=== PATIENT | female | born 1985 | race Caucasian/White ===

== ENCOUNTER → 2016-03-19 | Outpatient (CLI) | payer BC ==
[~2016-03-19] MED LIST: AMPH10TA2 PO; AMPH20TA2 PO; CLON0.5T3 PO; CMP/10 PO; CYCL10TA6 PO; DICL50TA3 PO; EFF/375 PO; EFF75 PO; EFFSR150 PO; ELET40TA PO; ETONMIS VAGRING; FLUO20CA37 PO; FLUO27.5 PO; FLX10 PO; HYDR-5688 PO; KLN5X PO; LAMO100T PO; LAMO1TAB21 PO; LAMO200T PO; LAMO200T38 PO; LINA1CAP PO; LINA72CA PO; LISI-729 PO; LRS10 PO; LSN5 PO; MELO15TA4 PO; METH500T37 PO; NARA2.5T2 PO; NF656 TD; NUVVR VAGRING; OXYC-164 PO; OXYC-57 PO; PROP120C PO; PRZ/40 PO; RXC5 PO; TOPI1CAP24 PO; TOPI25TA99 PO; TOPI50TA24 PO
--- NOTE | 2016-03-19 12:40 | MAMMOGRAPHY REPORT ---
UNILATERAL LEFT DIGITAL DIAGNOSTIC MAMMOGRAM TOMOSYNTHESIS WITH CAD AND TARGETED LEFT ULTRASOUND: 12/2016 CLINICAL HISTORY: 31 year-old woman who has been experiencing discomfort and other issues with her l eft axilla radiating down her arm into her neck and into her left breast since January 2016. She r eports a "cording" feeling with pain under the left armpit that travels into the left breast. Patie nt reported a previous neck CT and extremity ultrasound in the emergency department was unyielding. Patient reports a family history of breast cancer = grandmother and great grandmother. TECHNIQUE: Left breast tomosynthesis in addition to standard 2D mammography was performed. Current study was also evaluated with a Computer Aided Detection (CAD) system. COMPARISON: No prior exams were available for comparison. BREAST COMPOSITION: There are scattered areas of fibroglandular density in the left breast. FINDINGS: A triangular skin palpable marker overlies the upper outer posterior left breast, denoting the palpable concern pointed out by the patient. No suspicious mass, architectural distortion or c luster of suspicious microcalcifications is seen in the left breast. Targeted ultrasound was performed in the areas of concern pointed out by the patient (in the left up per extremity superior to the axilla, within the left axilla, inferior to the axilla in the left upp er outer quadrant and along the left mid axillary line). A few morphologically normal lymph nodes a re identified within the left axilla. Blood flow is documented within the left axillary artery and vein and a more superficial blood vessel also demonstrates blood flow. There is no evidence of susp icious adenopathy or suspicious mass. No current sonographic evidence of superficial thrombophlebit is (Mondor's disease). IMPRESSION: ACR BI-RADS CATEGORY 1: NEGATIVE, TARGETED ULTRASOUND ACR BI-RADS CATEGORY 1: NEGATIVE There is no mammographic or targeted sonographic evidence of malignancy. No suspicious lymphadenopa thy or other suspicious abnormality is identified within the left upper outer quadrant and left axil la, in the areas of concern pointed out by the patient. The patient's description of her pain and a bnormal sensation could be that of Mondor's disease/superficial thrombophlebitis, that is intermitte nt. Clinical follow-up is recommended. Would also recommend annual screening mammography beginning at age 40 given the family history of breast cancer. These results and recommendations were discus sed with the patient at the time of the exam. Approximately 10% of breast cancers are not detected with mammography. A negative mammographic repor t should not delay biopsy if a clinically suggestive mass is present. Jazmine Noel M.D. ay/:03/19/2016 10:46:21 [employer]: Yanna CRUMP(R)(Pancho), [facility] letter sent: Normal 1/2 BI-RADS Code: ACR BI-RADS Category 1: Negative Ultrasound BI-RADS: ACR BI-RADS Category 1: Negative
== END | disposition home or self-care (01) ==
LOC: C.MAMM 09:20
PROVIDERS: ATTEND Internal Medicine
DX: N64.4 Mastodynia (principal)

== ENCOUNTER 2016-03-30 22:43 | Emergency (ER) | payer BC ==
[~2016-03-30] VITALS: Ht 162.6 cm; Wt 71.6 kg
[~2016-03-30 22:43] MED LIST changes: -AMPH10TA2 PO; -CMP/10 PO; -CYCL10TA6 PO; -EFF/375 PO; -EFF75 PO; -EFFSR150 PO; -ETONMIS VAGRING; -FLUO27.5 PO; -FLX10 PO; -HYDR-5688 PO; -KLN5X PO; -LAMO1TAB21 PO; -LAMO200T38 PO; -LINA1CAP PO; -LINA72CA PO; -LRS10 PO; -LSN5 PO; -MELO15TA4 PO; -NARA2.5T2 PO; -NF656 TD; -NUVVR VAGRING; -OXYC-164 PO; -OXYC-57 PO; -PROP120C PO; -RXC5 PO; -TOPI1CAP24 PO; -TOPI25TA99 PO
[2016-03-30 22:45] VITALS: TEMP 36.2; Ht 162.6 cm; Wt 71.6 kg
[2016-03-30] MEDS ORDERED: FENTANYL CITRATE INJ 50 MCG/1 ML 2 ML VIAL IV STA (23:01)
[2016-03-30] MEDS ORDERED: SODIUM CHLORIDE 0.9% 1000ML 1,000 ML IV STA ×2 (23:01)
[2016-03-30] MEDS ORDERED: METOCLOPRAMIDE HCL INJ 5 MG/ML 2 ML VIAL IM STA (23:01)
[2016-03-30] MEDS ORDERED: DiphenhydrAMINE HCL 50 MG/ML VIAL IV STA (23:01)
[2016-03-30] MEDS ORDERED: METOCLOPRAMIDE HCL INJ 5 MG/ML 2 ML VIAL IV STA (23:55)
[2016-03-30 23:58] VITALS: O2SAT 100
[2016-03-31] LABS: BASO % 0.3 %; BASO ABS # 0.03 K/uL (0-0.2); COMPLETE YES; EOS % 2.3 %; HEMATOCRIT 39.1 % (37-47); IG% 0.3 %; LYMPH % 30.4 %; LYMPH ABS # 2.93 K/uL (1.2-3.4); MEAN CELL VOLUME 91.4 fL (80-100); MEAN CORPUSCULAR HEMOGLOBIN 31.3 pg (25-34); MEAN CORPUSCULAR HGB CONC 34.3 g/dl (32-36); MEAN PLATELET VOLUME 9.1 fL (7.4-10.4); MONO % 10.2 %; NEUT % 56.5 %; PLATELET COUNT 408 K/uL (130-400); RED BLOOD COUNT 4.28 M/uL (4.2-5.4); WHITE BLOOD COUNT 9.63 K/uL (4.8-10.8)
[2016-03-31 00:21] LABS: ALT/SGPT 20 U/L (12-78); AST/SGOT 12 U/L (15-37); BLOOD UREA NITROGEN 15 mg/dl (7-18); BUN/CREATININE RATIO 18.2 (10-20); CALCIUM 9.2 mg/dl (8.5-10.1); CARBON DIOXIDE 21 mmol/L (21-32); CHLORIDE 109 mmol/L (98-107); CREATININE 0.85 mg/dl (0.60-1.20); GLUCOSE 77 mg/dl (70-99); SODIUM 141 mmol/L (136-145)
[2016-03-31 00:24] LABS: ALKALINE PHOSPHATASE 96 U/L (45-117)
[2016-03-31 00:50] LABS: PREG INTERNAL NEGATIVE QC NEG CLEAR BACKGROUND; PREG INTERNAL POSITIVE QC POS CONTROL LINE
[2016-03-31] MEDS ORDERED: NARA2.5T2 PO (01:27)
[2016-03-31] MEDS ORDERED: TOPI25TA99 PO (01:30)
[2016-03-31] MEDS ORDERED: AMPH10TA2 PO (01:31)
[2016-03-31] MEDS ORDERED: KETOROLAC TROMETHAMINE 30 MG/ML VIAL IV STA (01:47)
[2016-03-31] MEDS ORDERED: ONDANSETRON HOME PACK 4MG OD TAB PO ONE (02:00)
[2016-03-31] MEDS ORDERED: OXYCODONE IR HOME PACK PO ONE (02:00)
--- NOTE | 2016-03-31 02:12 | EMERGENCY ROOM VISIT NOTE ---
History First contact with patient: 22:56 Chief Complaint: ABDOMINAL PAIN Stated Complaint: LL PAIN Nursing Triage Summary: Pt reports chronic left side abdominal pain for endometriosis. Tonight the pain became worse. History of Present Illness The patient is a 31 year old female who presents to the Emergency Room with complaints of chronic pelvic pain for many years that got slightly worse tonight. Patient states she has pelvic congestion syndrome. She sees Dr. Quiros from [facility]. She described the pain as aching, ranging in severity 9 out of 10. Nothing makes it better or worse. Patient is in a monogamous relationship denies risk for STIs. Patient denies chest pain, dyspnea, fever, chills, vomiting, diarrhea, back pain, urinary symptoms, vaginal itching or discharge. She also has endometriosis. elective 2 Review of Systems See HPI for pertinent positives & negatives. A total of 10 systems reviewed and were otherwise negative. Past Medical/Surgical History Medical Problems: (1) Bursitis of hip (2) Calculus Of Kidney (3) Depression (4) Hx of anxiety disorder (5) Migraines (6) Ovarian Cyst Nec/Nos (7) Personal History, Urinary (Tract) Infection (8) Pilonidal Cyst W Abscess Pelvic congestion syndrome, endometriosis Family History Diabetes mellitus FH: brain aneurysm MOTHER, Onset:12 Hypertension Seizures MOTHER Stroke Social History Smoking Status: Current Some Day Smoker Marital Status: Housing Status: lives with family Occupation Status: employed Current/Historical Medications Scheduled Amphetamine-Dextroamphetamine 10MG (Adderall 10MG), 10 MG PO BID Clonazepam (Klonopin), 0.5 MG PO QPM Clonazepam (Klonopin), 0.25 MG PO QAM Fluoxetine Hcl (Prozac), 20 MG PO QAM Fluoxetine Hcl (Prozac), 40 MG PO QAM Lamotrigine (Lamictal), 100 MG PO QAM Lamotrigine (Lamictal), 200 MG PO HS Naratriptan Hcl (Amerge), 2.5 MG PO PRN/UD Propranolol Hcl (Propranolol Hcl Er), 120 MG PO QAM Topiramate (Topamax ), 75 MG PO BID Scheduled PRN Diclofenac (Voltaren), 50 MG PO Q8 PRN for Headache Methocarbamol (Robaxin), 500 MG PO BID PRN for Neck Pain or Headache Allergies Coded Allergies: Morphine (Verified Allergy, Intermediate, MAKES HER ANXIOUS, 03/30/16) Tramadol (Verified Allergy, Intermediate, GIVES HER THE SHAKES, 03/30/16) Leuprolide (Verified Allergy, Unknown, Mental complications, 05/31/15) Trazodone (Unverified Allergy, Unknown, ., 03/30/16) Estradiol (Verified Adverse Reaction, Unknown, "crazy", 03/30/16) ADMITTED TO [facility] D/T SIDE EFFECTS Physical Exam Vital Signs Date Time Temp Pulse Resp B/P Pulse Ox O2 Delivery O2 Flow Rate FiO2 03/31/16 01:22 64 16 107/68 100 Room Air 03/31/16 00:15 87 03/30/16 23:58 100 Room Air 03/30/16 23:57 74 16 101/58 100 Room Air 03/30/16 22:45 36.2 81 19 108/61 100 Room Air Physical Exam VITALS: Vitals are noted on the nurse's note and reviewed by myself. Vital signs stable. GENERAL: White female avoiding eye contact, in no acute distress, nondiaphoretic , well-developed well-nourished. SKIN: The skin was without rashes, erythema, edema, or bruising. There is no tenting of the skin. Capillary reflex less than 2 seconds. HEAD: Normocephalic atraumatic. EARS: External auditory canals clear, tympanic membranes pearly alfaro without erythema or effusion bilaterally. EYES: Pupils equal round and reactive to light and accommodation. Conjunctivae without injection, sclerae without icterus. Extraocular movements intact. NOSE: Patent, turbinates without inflammation or discharge. MOUTH: Mucous membranes moist. Pharynx without erythema or exudate. Uvula midline. Airway patent. Tongue does not deviate. NECK: Supple without nuchal rigidity. No lymphadenopathy. No thyromegaly. Cervical spine is nontender. No JVD. HEART: Regular rate and rhythm without murmurs gallops or rubs. LUNGS: Clear to auscultation bilaterally without wheezes, rales or rhonchi. No dullness to percussion. No retractions or accessory muscle use. ABDOMEN: Positive bowel sounds x 4. Normal tympanic percussion. Soft, tender to palpation left lower quadrant pubic area, without masses or organomegaly. Alvarez sign negative. No guarding or rebound tenderness. No CVA tenderness MUSCULOSKELETAL: No muscle atrophy, erythema, or edema noted. NEURO: Patient was alert and oriented to person place and time. Normal sensation to light and sharp touch. No focal neurological deficits. Medical Decision & Procedures Laboratory Results 03/30/16 23:40 Red Blood Count 4.28, Mean Corpuscular Volume 91.4, Mean Corpuscular Hemoglobin 31.3, Mean Corpuscular Hemoglobin Concent 34.3, Mean Platelet Volume 9.1, Neutrophils (%) (Auto) 56.5, Lymphocytes (%) (Auto) 30.4, Monocytes (%) (Auto) 10.2, Eosinophils (%) (Auto) 2.3, Basophils (%) (Auto) 0.3, Neutrophils # (Auto ) 5.44, Lymphocytes # (Auto) 2.93, Monocytes # (Auto) 0.98, Eosinophils # (Auto ) 0.22, Basophils # (Auto) 0.03 03/30/16 23:40 Test 03/30/16 23:40 White Blood Count 9.63 K/uL (4.8-10.8) Red Blood Count 4.28 M/uL (4.2-5.4) Hemoglobin 13.4 g/dL (12.0-16.0) Hematocrit 39.1 % (37-47) Mean Corpuscular Volume 91.4 fL (80-100) Mean Corpuscular Hemoglobin 31.3 pg (25-34) Mean Corpuscular Hemoglobin Concent 34.3 g/dl (32-36) Platelet Count 408 K/uL (130-400) Mean Platelet Volume 9.1 fL (7.4-10.4) Neutrophils (%) (Auto) 56.5 % Lymphocytes (%) (Auto) 30.4 % Monocytes (%) (Auto) 10.2 % Eosinophils (%) (Auto) 2.3 % Basophils (%) (Auto) 0.3 % Neutrophils # (Auto) 5.44 K/uL (1.4-6.5) Lymphocytes # (Auto) 2.93 K/uL (1.2-3.4) Monocytes # (Auto) 0.98 K/uL (0.11-0.59) Eosinophils # (Auto) 0.22 K/uL (0-0.5) Basophils # (Auto) 0.03 K/uL (0-0.2) RDW Standard Deviation 43.6 fL (36.4-46.3) RDW Coefficient of Variation 13.2 % (11.5-14.5) Immature Granulocyte % (Auto) 0.3 % Immature Granulocyte # (Auto) 0.03 K/uL (0.00-0.02) Anion Gap 11.0 mmol/L (3-11) Est Creatinine Clear Calc Drug Dose 93.1 ml/min Estimated GFR () 105.8 Estimated GFR (Non- 91.3 BUN/Creatinine Ratio 18.2 (10-20) Calcium Level 9.2 mg/dl (8.5-10.1) Total Bilirubin 0.4 mg/dl (0.2-1) Direct Bilirubin < 0.1 mg/dl (0-0.2) Aspartate Amino Transf (AST/SGOT) 12 U/L (15-37) Alanine Aminotransferase (ALT/SGPT) 20 U/L (12-78) Alkaline Phosphatase 96 U/L (45-117) Total Protein 7.5 gm/dl (6.4-8.2) Albumin 4.2 gm/dl (3.4-5.0) Lipase 127 U/L (73-393) Human Chorionic Gonadotropin, Qual NEG (NEG) Medications Administered Medications (Trade) Dose Ordered Sig/Anthony Route Start Time Stop Time Status Last Admin Dose Admin Fentanyl Citrate 50 mcg 50 mcg NOW STAT IV 03/30/16 23:01 03/30/16 23:04 DC 03/30/16 23:49 50 MCG Sodium Chloride 1,000 ml @ 999 mls/hr Q1H1M STAT IV 03/30/16 23:01 03/31/16 00:01 DC 03/30/16 23:48 999 MLS/HR Sodium Chloride (Nss 1000ml) 1,000 ml @ 200 mls/hr Q5H STAT IV 03/30/16 23:01 03/31/16 04:00 03/31/16 01:24 200 MLS/HR Diphenhydramine HCl (Benadryl Inj) 12.5 mg NOW STAT IV 03/30/16 23:01 03/30/16 23:04 DC 03/30/16 23:49 12.5 MG Metoclopramide HCl (Reglan Inj) 10 mg NOW STAT IV 03/30/16 23:55 03/30/16 23:57 DC 03/30/16 23:59 10 MG ED Course Prior records/ancillary studies reviewed. Triage Nursing notes reviewed. Additional history obtained from family. The patient's history was concerning for abdominal pain. Differential diagnosis: Etiologies such as pelvic congestion syndrome, endometriosis, cyst, torsion, appendicitis, diverticulitis, PUD, biliary pathology, UTI, pancreatitis, obstruction, mesenteric ischemia, aortic pathology, infections, inflammatory bowel disease, renal colic, as well as others were entertained. Physical examination findings: As above. ER treatment provided: Fentanyl, Reglan, Benadryl, IV fluids On reassessment the patient felt better. Diagnostics interpreted by me: The labs revealed negative hCG. No worrisome leukocytosis or electrolyte abnormality negative urine Imaging studies: Ultrasound was read by stat radiology concerning for ovarian cyst. No torsion Exam and history seem consistent with acute on chronic pelvic pain. Patient has a long-standing history of this. Unremarkable workup as above. She is advised follow-up with her [facility] in a few days or here in the ER sooner for severe pain, vomiting, worsening signs or symptoms or as needed. By the evaluation outlined above emergent etiologies such as appendicitis, diverticulitis, PUD, biliary pathology, UTI, pancreatitis, obstruction, mesenteric ischemia, aortic pathology, infections, inflammatory bowel disease, renal colic, as well as others were deemed relatively unlikely. The pt informed about the findings as listed above. All questions were answered and pleased with the treatment. Return instructions were outlined and the patient was discharged in stable condition. Outpatient prescription management: zofran Referral: The patient was referred back to their [facility] for follow-up in 2 to 3 days for a recheck of the current condition. Case reviewed with my attending Medical Decision As above [place] Drug Monitoring Program Search Results: patient reviewed within database, see additional documentation (multiple drug prescriptions for narcotics and antianxiety medications) Impression Primary Impression: Pelvic pain Additional Impression: acute on chronic pain Departure Information Dispostion Home / Self-Care Condition GOOD Referrals Gagandeep Carroll M.D. (PCP) Patient Instructions [facility] Additional Instructions Ibuprofen(Motrin, Advil) may be used for fever or pain. Use 600mg every six hours as needed. Take with food. Avoid using more than 2400mg in a 24 hour period. Do not use 2400mg per day for more than three consecutive days without physician direction. Prolonged inappropriate use can lead to stomach upset or ulcers. (AND/OR) Acetaminophen(Tylenol) may be used for fever or pain. Use 1000mg every six hours as needed. Avoid using more than 3000mg in a 24 hour period. Rest and drink plenty of fluids as tolerated. Continue current medications. Avoid strenuous activities and anything that worsens your pain. Resume normal activities once your symptoms resolve. Return to the ER immediately for worsening or persistent abdominal pain, vomiting, fevers, chest pains, difficulty breathing, worsening of your condition , or as needed. Follow up with your primary physician/[facility] in 2-3 days for a recheck of your current condition. Problem Qualifiers
[2016-03-31 02:17] LABS: URINE APPEARANCE CLOUDY (CLEAR); URINE BILIRUBIN NEG (NEG); URINE COLOR DK YELLOW; URINE EPITHELIAL CELL AUTO >30 /lpf (0-5); URINE NITRITE NEG (NEG); URINE SPECIFIC GRAVITY 1.024 (1.000-1.030); UROBILINOGEN NEG (NEG); ZZUR CULT IF INDIC CLEAN CATCH YES
[2016-03-31 02:26] LABS: MANUAL MICROSCOPIC REQUIRED? NO; REVIEW REQ? YES
[2016-03-31 02:31] VITALS: BP 100/60; PULSE 68; O2SAT 100
--- NOTE | 2016-03-31 07:31 | DIAGNOSTIC IMAGING REPORT ---
EXAMINATION: PELVIC ULTRASOUND (transabdominal and endovaginal scanning) CLINICAL HISTORY: Pelvic pain. History of pelvic congestion syndrome, history of endometriosis COMPARISON STUDY: MRI dated 06/15/2013 FINDINGS: The uterus measured 8.6 x 4 x 4.6 cm.. The endometrial stripe measured 10 mm. The right ovary measured 52 x 12 x 20 mm.. The left ovary measured 40 x 25 x 27 mm. There is a 21 mm left ovarian follicle. There is also a 16 x 8 x 10 mm echogenic focus within or abutting the medial aspect of the left ovary. In the setting of a negative test, this likely represents a complex cyst or evidence of endometriosis, given the provided clinical history. There is no ultrasonographic evidence of ovarian torsion. It should be noted that ovarian torsion can be present with normal Doppler ultrasonographic findings. There was no evidence of pathologic free pelvic fluid. IMPRESSION: 1. Normal uterus and myometrium 2. No evidence of ovarian torsion 3. 21 mm left ovarian follicle 4. 16 x 8 x 10 mm echogenic focus, within or abutting the medial aspect of the left ovary. This likely represents a complex cyst or evidence of endometriosis. Electronically signed by: Dong Luther M.D. 03/31/2016 7:30 AM Dictated Date/Time: 03/31/2016 7:25 AM
[2016-05-14] MEDS ORDERED: LISI-729 PO (15:13)
[2016-05-14] MEDS ORDERED: ELET40TA PO (15:13)
[2016-05-14] MEDS ORDERED: HYDR-5688 PO (15:13)
[2016-06-04] MEDS ORDERED: FLUO27.5 PO (14:29)
[2016-06-21] MEDS ORDERED: EFF/375 PO (09:18)
[2016-06-28] MEDS ORDERED: HYDR-5688 PO (10:02)
[2016-08-12] MEDS ORDERED: EFF75 PO (13:06)
[2016-08-12] MEDS ORDERED: ETONMIS VAGRING (13:06)
[2016-08-28] MEDS ORDERED: LINA1CAP PO (13:16)
[2016-09-30] MEDS ORDERED: FLX10 PO (10:55)
[2016-09-30] MEDS ORDERED: OXYC-164 PO (10:55)
[2016-11-03] MEDS ORDERED: TOPI1CAP24 PO (09:45)
== END 2016-03-31 02:45 | disposition home or self-care (01) ==
LOC: C.EDB 22:44 → C.EDC 03-31 02:45
DX: R10.2 Pelvic and perineal pain (principal); G89.29 Other chronic pain; F32.9 Major depressive disorder, single episode, unspecified; Z87.442 Personal history of urinary calculi; F41.9 Anxiety disorder, unspecified; Z87.440 Personal history of urinary (tract) infections; Z83.3 Family history of diabetes mellitus; Z82.49 Family history of ischemic heart disease and other diseases of the circulatory system; Z82.3 Family history of stroke; Z79.899 Other long term (current) drug therapy

== ENCOUNTER → 2016-05-08 | Outpatient (CLI) | payer BC ==
[~2016-05-08] MED LIST changes: +AMPH10TA2 PO; -AMPH20TA2 PO; +CMP/10 PO; +CYCL10TA6 PO; +EFF/375 PO; +EFF75 PO; +EFFSR150 PO; +ETONMIS VAGRING; +FLUO27.5 PO; +FLX10 PO; +HYDR-5688 PO; +KLN5X PO; +LAMO1TAB21 PO; +LAMO200T38 PO; +LINA1CAP PO; +LINA72CA PO; +LRS10 PO; +LSN5 PO; +MELO15TA4 PO; +NARA2.5T2 PO; +NF656 TD; +NUVVR VAGRING; +OXYC-164 PO; +OXYC-57 PO; +PROP120C PO; +RXC5 PO; +TOPI1CAP24 PO; +TOPI25TA99 PO; -TOPI50TA24 PO
[2016-05-11 02:55] LABS: CHLAMYDIA TRACH RNA*** NOT DETECTED (NOT DETECTED); GC (NEIS GONORRHOEAE)RNA** NOT DETECTED (NOT DETECTED)
== END | disposition home or self-care (01) ==
LOC: C.LABSPEC 15:34
PROVIDERS: ATTEND Obstetrics & Gynecology
DX: Z20.2 Contact with and (suspected) exposure to infections with a predominantly sexual mode of transmission (principal)

== ENCOUNTER 2016-06-28 05:38 | Day surgery (SDC) | payer BC ==
--- NOTE | 2016-06-04 14:55 | PAT Medication Instructions ---
Service Date Jun 04, 2016. Current Home Medication List Clonazepam (Klonopin), 0.5 MG PO QPM Diclofenac (Voltaren), 50 MG PO Q8 PRN for Headache Eletriptan (Relpax), 40 MG PO DIRECTED Fluoxetine Hcl (Fluoxetine Hcl), 60 MG PO QAM Hydrocodone/Acetaminophen 5MG/325MG ([place] 5MG/325MG), 1-2 TABLETS PO Q4 PRN for Pain Lamotrigine (Lamictal), 100 MG PO QAM Lamotrigine (Lamictal), 200 MG PO HS Lisinopril (Zestril), 5 MG PO QAM Methocarbamol (Robaxin), 500 MG PO BID PRN for Neck Pain or Headache Propranolol Hcl (Propranolol Hcl Er), 120 MG PO QAM Topiramate (Topamax ), 75 MG PO BID Medication Instructions For Your Scheduled Surgery - Hold the following medications the morning of surgery: Diclofenac (Voltaren), 50 MG PO Q8 PRN for Headache (otherwise okay to continue per surgeon) Lisinopril (Zestril), 5 MG PO QAM Methocarbamol (Robaxin), 500 MG PO BID PRN for Neck Pain or Headache - Take the following medications the morning of surgery with a sip of water OTHERWISE NOTHING TO EAT OR DRINK AFTER MIDNIGHT: Topiramate (Topamax ), 75 MG PO BID Lamotrigine (Lamictal), 100 MG PO QAM Fluoxetine Hcl (Fluoxetine Hcl), 60 MG PO QAM Eletriptan (Relpax), 40 MG PO DIRECTED (if needed) Hydrocodone/Acetaminophen 5MG/325MG ([place] 5MG/325MG), 1-2 TABLETS PO Q4 PRN for Pain (may take if needed up to 4 hours prior to surgery) Propranolol Hcl (Propranolol Hcl Er), 120 MG PO QAM - Take the following medications as scheduled the night before surgery: Topiramate (Topamax ), 75 MG PO BID Lamotrigine (Lamictal), 200 MG PO HS Clonazepam (Klonopin), 0.5 MG PO QPM Eletriptan (Relpax), 40 MG PO DIRECTED (if needed) Hydrocodone/Acetaminophen 5MG/325MG ([place] 5MG/325MG), 1-2 TABLETS PO Q4 PRN for Pain Methocarbamol (Robaxin), 500 MG PO BID PRN for Neck Pain or Headache If you have any questions please call us at [phone] or [phone] or [phone]
[2016-06-04 15:27] LABS: BASO % 0.4 %; BASO ABS # 0.03 K/uL (0-0.2); COMPLETE YES; EOS % 1.8 %; HEMATOCRIT 36.1 % (37-47); IG% 0.1 %; LYMPH % 39.4 %; LYMPH ABS # 2.85 K/uL (1.2-3.4); MEAN CELL VOLUME 92.1 fL (80-100); MEAN CORPUSCULAR HEMOGLOBIN 30.6 pg (25-34); MEAN CORPUSCULAR HGB CONC 33.2 g/dl (32-36); MEAN PLATELET VOLUME 9.4 fL (7.4-10.4); MONO % 8.3 %; PLATELET COUNT 360 K/uL (130-400); RED BLOOD COUNT 3.92 M/uL (4.2-5.4); WHITE BLOOD COUNT 7.23 K/uL (4.8-10.8)
[2016-06-04 15:33] LABS: PREG INTERNAL NEGATIVE QC NEG CLEAR BACKGROUND; PREG INTERNAL POSITIVE QC POS CONTROL LINE
[~2016-06-28] VITALS: Ht 162.6 cm; Wt 78.4 kg
[~2016-06-28 05:38] MED LIST changes: -AMPH10TA2 PO; -CMP/10 PO; -CYCL10TA6 PO; -EFF75 PO; -EFFSR150 PO; -ETONMIS VAGRING; -FLUO20CA37 PO; -FLUO27.5 PO; -FLX10 PO; -KLN5X PO; -LAMO1TAB21 PO; -LAMO200T38 PO; -LINA1CAP PO; -LINA72CA PO; -LRS10 PO; -LSN5 PO; -MELO15TA4 PO; -NARA2.5T2 PO; -NF656 TD; -NUVVR VAGRING; -OXYC-164 PO; -OXYC-57 PO; -PROP120C PO; -PRZ/40 PO; -RXC5 PO; -TOPI1CAP24 PO
[2016-06-28] MEDS ORDERED: CEFAZOLIN 2000 MG/60 ML D5W 50 ML IV SCH (06:00)
[2016-06-28] MEDS ORDERED: LACTATED RINGER'S 1000ML 1,000 ML IV SCH ×3 (06:00→10:04)
[2016-06-28 06:18] VITALS: Ht 162.6 cm; Wt 78.4 kg
[2016-06-28] MEDS ORDERED: LIDOCAINE HCL 2% 2 ML VIAL (20MG/ML) ONE (06:58)
[2016-06-28] MEDS ORDERED: ROCURONIUM BROMIDE 10 MG/ML 5 ML VIAL ONE (06:58)
[2016-06-28] MEDS ORDERED: MIDAZOLAM HCL 1 MG/ML 2ML VIAL ONE (06:58)
[2016-06-28] MEDS ORDERED: GLYCOPYRROLATE INJ 0.2 MG/ML VIAL ONE (06:58)
[2016-06-28] MEDS ORDERED: DEXAMETHASONE SOD INJ 4 MG/ML VIAL ONE (06:58)
[2016-06-28] MEDS ORDERED: NEOSTIGMINE METHYLSULFATE 5 MG/5 ML SYR ONE (06:58)
[2016-06-28] MEDS ORDERED: ONDANSETRON INJ 2 MG/ML 2 ML VIAL ONE (06:58)
[2016-06-28] MEDS ORDERED: PROPOFOL IV EMULSION 10 MG/ML 20 ML VIAL IV ONE ×2 (06:58→08:24)
[2016-06-28] MEDS ORDERED: FENTANYL CITRATE INJ 50 MCG/1 ML 2 ML VIAL ONE (06:58)
[2016-06-28 07:09] LABS: CREATININE 0.81 mg/dl (0.60-1.20)
[2016-06-28 07:10] LABS: BUN/CREATININE RATIO 17.3 (10-20); CALCIUM 8.8 mg/dl (8.5-10.1); POTASSIUM 4.1 mmol/L (3.5-5.1)
[2016-06-28] MEDS ORDERED: ATROPINE SULFATE 0.1 MG/ML 5ML SYR IV PRN (07:15)
[2016-06-28] MEDS ORDERED: ONDANSETRON INJ 2 MG/ML 2 ML VIAL IV PRN (07:15)
[2016-06-28] MEDS ORDERED: KETOROLAC TROMETHAMINE 30 MG/ML VIAL IV. PRN ×3 (07:15→10:15)
[2016-06-28] MEDS ORDERED: LABETALOL HCL IV 5 MG/ML 20ML IV PRN (07:15)
[2016-06-28] MEDS ORDERED: PROMETHAZINE HCL INJ 12.5 MG in SODIUM CHLORIDE 0.9% 50ML 50 ML IV PRN (07:15)
[2016-06-28] MEDS ORDERED: METHYLENE BLUE 0.5% 10 ML VIAL ONE (07:16)
[2016-06-28] MEDS ORDERED: BUPIVACAINE 0.5 % 5 MG/1 ML MPF 30ML VIAL ONE (07:16)
--- NOTE | 2016-06-28 07:16 | History & Physical Bridge Note ---
H&P Re-Evaluation Bridge Note: I have examined the patient, reviewed the History & Physical and in the interval since the performance of the History & Physical I have noted the following changes of clinical significance: No changes noted
[2016-06-28] MEDS ORDERED: HYDROmorphone INJ 2 MG/ML SYR/VIAL ONE (08:02)
[2016-06-28] MEDS ORDERED: EpHEDrine SULFATE 50MG/5ML SYR ONE (08:40)
--- NOTE | 2016-06-28 09:09 | DIAGNOSTIC IMAGING REPORT ---
GUIDANCE INTRAOPERATIVE ULTRASOUND CLINICAL HISTORY: ENDOMETRIOSIS, PELVIC PAIN, METRORRHAGIA, ADENOMYO COMPARISON STUDY: Pelvic ultrasound 03/31/2016 FINDINGS: Limited visualization of the uterus demonstrates a distended canal which appears filled with gas and/or fluid. Ultrasound was provided for intraoperative guidance. IMPRESSION: Ultrasound provided for intraoperative guidance within the pelvis or in Electronically signed by: Alberto Bird M.D. 06/28/2016 9:07 AM Dictated Date/Time: 06/28/2016 9:06 AM
--- NOTE | 2016-06-28 10:00 | [facility] Post Operative Brief Note ---
Immediate Operative Summary Operative Date Jun 28, 2016. Pre-Operative Diagnosis Chronic pelvic pain Endometriosis Menorrhagia Cervical stenosis Post-Operative Diagnosis Same as preop Procedure(s) Performed Hysteroscopy, dilation and curettage, ultrasound guidance attempted Mirena IUD placement, Robotic-assisted Laparoscopic Left Salpingo-oophorectomy, Excision of Endometriosis Surgeon Dr. Calixto Collar Baster Jumpbasting Surgeon(s) Dr. Kiran Estimated Blood Loss 5 cc Findings uterus sounded to 9cm, fluffy endometrium, no lesions or polyps noted, both tubal ostia visualized. Unfortunately poor visualization with us secondary to bowel. Was unable to place Mirena into fundus. nl right tube and ovary. nl appearing left tube and ovary. some eosis that was fulgarated on the right ovary. uterus retroverted, boggy and top nl size. endometriosis implants in the bilateral ovarian fossa and the posterior cul de sac. nl liver edge and gall bladder. Fluids (cc crystalloids) 1500cc IVF, 750 cc hsc deficit Specimens B: peritoneal biopsys C: left fallopian tube and ovary Drains none Anesthesia gett Complication(s) None Disposition Recovery Room / PACU
[2016-06-28] MEDS ORDERED: HYDR-5688 PO (10:02)
--- NOTE | 2016-06-28 10:03 | Discharge Instructions ---
Discharge Instructions Date of Service Jun 28, 2016. Visit Reason for Visit: Endometriosis, Pelvic Pain, Metrorrhagia, Adenomyo Discharge Discharge Diagnosis / Problem: s/p hysteroscopy, D&C, removal of left tube and ovary, excision of eosis Discharge Goals Goal(s): Specific goals Activity Recommendations Activity Limitations: per Instructions/Follow-up section Anesthesia . Post Anesthesia Instructions: If you have had General Anesthesia or IV Sedation: * Do not drive today. * Resume driving when surgeon permits. * Do not make important decisions or sign legal documents today. * Call surgeon for: 1. Temperature elevations greater than 101 degrees F. 2. Uncontrollable pain. 3. Excessive bleeding. 4. Persistent nausea and vomiting. 5. Medication intolerance (nausea, vomiting or rash). * For nausea and vomiting use only clear liquids such as: tea, soda, bouillon until nausea subsides, then gradually increase diet as tolerated. * If you have any concerns or questions, call your surgeon's office. If physician is unavailable and it is an emergency, call 911 or go to the nearest emergency room. . Instructions / Follow-Up Instructions / Follow-Up ACTIVITY RECOMMENDATIONS: * Rest the first 2-3 days. You should be back to your normal activity levels by day 3. * No heavy lifting for 2 weeks. * No intercourse, tampons or douching for 1-2 weeks. * You may shower the next day. * Do not drive anytime that you are taking narcotic pain medicines. RETURN TO SCHOOL/WORK: * May return to school or work after 2-3 days. DIET: Nausea may occur in the immediate post-operative period. If so, take clear liquids such as tea, bouillon, apple juice until all nausea has subsided, then resume usual diet. MEDICATIONS: Resume previous medications unless instructed otherwise by your surgeon. Ibuprofen 200mg 2-3 tablets every 4-6 hours as needed -- OR -- Aleve 2 tablets every 8-12 hours as needed for post-operative discomfort Medications are over the counter. Tylenol may be used if above medications are contraindicated or not preferred. Medication should be taken with food or milk. Do not take on an empty stomach. SPECIAL CARE INSTRUCTIONS: * Check temperature twice daily for one week. report any elevation over 101 degrees. * You may experience some vagina spotting and/or bleeding. This is normal for 1 -2 weeks and should not be heavier than a normal period. If it is unusual in amount, call your physician. * Post-operative discomfort may consist of a sore throat, a "bloated" feeling and pain in the shoulders. these are normal symptoms, which usually only last for 2-3 days. * Remove band-aids tomorrow and shower. There is no need to replace band-aids unless there is drainage or discomfort. FOLLOW UP VISIT: Call your doctor's office for a post-operative 2 week visit if not already scheduled. Diet Recommendations Recommended Home Diet: no limitations, resume previous diet Procedures Procedures Performed: Hysteroscopy, dilation and curettage, ultrasound guidance attempted Mirena IUD placement, Robotic-assisted Laparoscopic Left Salpingo-oophorectomy, Excision of Endometriosis Pending Studies Studies pending at discharge: no Medical Emergencies . Who to Call and When: Medical Emergencies: If at any time you feel your situation is an emergency, please call 911 immediately. . Non-Emergent Contact Non-Emergency issues call your: Protective Officer . . "Provider Documentation" section prepared by Juanita Calixto. . [place] Drug Monitoring Program Search Results: patient reviewed within database
[2016-06-28] MEDS ORDERED: ACETAMINOPHEN 650 MG SUPP PR PRN (10:15)
[2016-06-28] MEDS ORDERED: HYDROCODONE/ACETAMOPHEN 5/325MG TAB PO PRN ×2 (10:15)
[2016-06-28] MEDS ORDERED: IBUPROFEN 600 MG TAB PO PRN (10:15)
[2016-06-28] MEDS ORDERED: IBUPROFEN 200 MG TAB PO PRN (10:15)
[2016-06-28] MEDS ORDERED: ACETAMINOPHEN 325 MG TAB PO PRN (10:15)
[2016-06-28] MEDS: FENTANYL CITRATE INJ 50 MCG/1 ML 2 ML VIAL IV PRN ×5 (10:17→10:37)
[2016-06-28 11:05] VITALS: BP 95/52; PULSE 58; TEMP 36.7; O2SAT 92
--- NOTE | 2016-06-28 11:06 | OPERATIVE REPORT ---
DATE OF OPERATION: 06/28/2016 PREOPERATIVE DIAGNOSES: 1. Chronic pelvic pain with a history of endometriosis. 2. Menorrhagia. 3. Cervical stenosis. POSTOPERATIVE DIAGNOSIS: Same. PROCEDURES: 1. D\T\C, hysteroscopy with attempted ultrasound-guided placement of Mirena intrauterine device. 2. Laparoscopic salpingo-oophorectomy with da Marilyn assist and excision of endometriosis implants. SURGEON: Dr. Calixto. NET MAKER: Dr. Lianna Kiran. ANESTHESIA: General per endotracheal tube. ESTIMATED BLOOD LOSS: 5 mL FLUIDS: 1500 mL of IV fluid and a 750 mL deficit. URINE OUTPUT: A total of about 400 mL of clear yellow urine drained from the bladder throughout the procedure. INDICATIONS: Reyna is a 31-year-old white female with history of laparoscopy- proven endometriosis with continued persistent chronic pelvic pain. She also, likely, has adenomyosis as well. The patient is not ready to give up her childbearing. Her pain is predominantly left sided. So we plan to proceed with laparoscopic LSO. Additionally, because of her menorrhagia and her endometriosis pain, we will attempt to place a Mirena IUD under ultrasound guidance. FINDINGS: Uterus sounded to 9 cm. I was able to place the hysteroscope into the uterine fundus without difficulty. Both tubal ostia were noted. The endometrium was fluffy, but no obvious masses or polyps. Unfortunately, I was unable to place the Mirena IUD into the fundus of the uterus and tried x2. On laparoscopy, the left tube and ovary appeared normal. The right tube and ovary appeared normal. There was a little bit of endometriosis on the right tube that was around the right ovary that was attended to with some cautery. The uterus was retroverted and normal in appearance. The posterior cul-de-sac showed a couple of endometriotic implants. There were endometriotic implants in the bilateral ovarian fossa and there was probably petechiae-like endometriosis throughout the pelvis. There was also a deep infiltrating endometriosis spot directly below the ureter on the right side. The liver edge was normal. Also of note, the descending colon was very nodular, probably filled with hard stool and this was palpated on exam under anesthesia and I thought it might be a pelvic mass, but there was no nodularity to the posterior cul-de-sac and it appeared to be all related to the descending colon filled with stool. COMPLICATIONS: None. DRAINS: None. DISPOSITION: To recovery room in stable condition. PROCEDURE: The patient was taken to the operating room, where she was identified verbally and by bracelet. She was placed in dorsal supine position on the operating table where general anesthesia was induced without difficulty. She was then placed in dorsal lithotomy position in candy-cane stirrups. Her arms were carefully tucked and draped to the side. Her chest was padded and restrained. The head end desizing machine operator was placed to protect the patient's head and she was prepped and draped in normal sterile fashion for the hysteroscopy procedure. Time out was held for the hysteroscopy, D\T\C and attempted Mirena placement. This was to occur under ultrasound guidance. The ultrasonography tech put the ultrasound down over the abdomen. Unfortunately, we had very poor visualization because of bowel gas and stool. She was unable to see me instrumenting the uterus at any point in time during the procedure, although she did watch it throughout. A weighted speculum was placed in the posterior vagina. The bladder was drained of urine. The anterior lip of the cervix was grasped with a single tooth tenaculum. I was able to sound the uterus to about 8 cm and I dilated the external cervix to a #23 Hegar dilator and then I used the hysteroscope to visually enter the uterine cavity. The uterine cavity was slightly retroverted. Both tubal ostia were noted. There was fluffy endometrium noted, but no significant masses or polyps identified. A curettage was then performed in 365 degrees. The hysteroscope was reintroduced and I was able to easily place the hysteroscope in. Still, unfortunately, we could not see to place the Mirena under ultrasound guidance, so I set the Mirena to 9 cm, I was able to place it all the way in and deploy it. The only way to know if it was in the fundus was to follow it with hysteroscopy; so, the hysteroscope was reintroduced. The IUD was noted to be in the lower uterine segment and the lower part of the fundus. The arms were still vertical and not deployed into their T-shape. This IUD was removed. I tried with another Mirena IUD with the same result. I did attempt to manually, by using a pair of forceps through the hysteroscope, push the IUD into the fundus and was unable to do so. This part of the procedure was then terminated. The patient was undraped. She was again prepped and draped in normal sterile fashion for a laparoscopy. A time-out was held, identifying this procedure, which was going to be the diagnostic laparoscopy with left salpingo-oophorectomy and excision of endometriosis. Attention was turned to the vagina where a Pickering catheter was placed in the bladder. A weighted speculum was placed into the uterus and a Card uterine manipulator was placed into the uterus after the cervix was grasped with a single toothed tenaculum. Gloves were then changed. Attention was then turned to the upper abdomen where an infraumbilical incision was made over her previous incision. A snap was used to take this down to the fascia. The fascia was grasped bilaterally, entered with scissors and marked with a Vicryl suture. Intra-abdominal placement was then confirmed visually, a Kp trocar was then placed into this incision. The patient was then placed into deep Trendelenburg position. Two 8 mm da Marilyn trocars were placed under direct visualization in the right and left lower quadrants and then eventually, a 10 mm accessory trocar was placed into the left upper quadrant, all under direct visualization. Evaluation of the pelvis is as noted above. Attention was first turned to the left adnexa, where the ureter was found to be free from the infundibulopelvic ligament. The infundibulopelvic ligament was taken down with bipolar cautery and incised with hot roosevelt. This was taken through the mesosalpinx and then the tubo-ovarian ligament and tube were excised, using cautery and scissors. The access services assistant placed an EndoCatch bag through the left upper quadrant incision. The specimen was placed into this and the specimen was removed through the left upper quadrant incision. Attention was then turned to the pelvis, where several areas of endometriotic implants were excised. Two endometriotic implants that were lying directly over the ureters were excised using cold scissors and by pulling away strongly from the ureter. Approximately 5-6 endometriotic implants were removed. There was a deep infiltrating endometriotic implant located on the right ovarian fossa underneath the ureter that was not disturbed at this time. There were some areas of endometriosis on the right ovary that were cauterized. All specimens were removed through the left upper quadrant trocar. Once this was accomplished and there were no other large endometriotic implants to remove, the procedure was terminated. All trocars were removed from the abdomen. The gas was released. Deep fascial incisions of 0 Vicryl were placed at the umbilical and left upper quadrant trocar sites. The incisions were then infiltrated with 0.5% Marcaine and the skin was closed with a subcuticular stitch of 4-0 Vicryl and treated with Dermabond. The instruments were removed from the vagina and hemostasis was noted to be excellent. All sponge, lap and needle counts were correct x2. The patient tolerated the procedure well and was taken to recovery room in stable condition. I attest to the content of the Intraoperative Record and any orders documented therein. Any exceptio ns are noted below.
[2016-06-28 11:35] VITALS: BP 96/54; PULSE 55; O2SAT 92
--- NOTE | 2016-06-28 11:40 | Anesthesiology Progress Note ---
Anesthesia Post Op Note Date & Time Jun 28, 2016 at 11:39 Vital Signs Vital Signs Past 12 Hours Date Time Temp Pulse Resp B/P Pulse Ox O2 Delivery O2 Flow Rate FiO2 06/28/16 11:05 36.7 58 18 95/52 92 Room Air 06/28/16 10:55 36.4 58 16 97/56 95 Nasal Cannula 2 06/28/16 10:36 97/47 06/28/16 10:35 71 15 92 06/28/16 10:35 71 15 06/28/16 10:34 96/47 06/28/16 10:30 51 10 06/28/16 10:30 51 10 98 06/28/16 10:25 52 17 97/58 97 06/28/16 10:25 53 17 06/28/16 10:24 59 23 98 06/28/16 10:24 59 23 06/28/16 10:20 113/74 06/28/16 10:19 74 18 95 06/28/16 10:19 74 18 06/28/16 10:15 103/66 06/28/16 10:14 59 16 97 06/28/16 10:14 59 16 06/28/16 10:10 109/67 06/28/16 10:09 62 18 98 06/28/16 10:09 63 18 06/28/16 10:05 109/65 06/28/16 10:04 63 17 95 06/28/16 10:04 63 17 06/28/16 10:00 103/65 06/28/16 09:59 65 19 06/28/16 09:59 65 19 116/62 96 06/28/16 09:59 36.1 66 16 116/62 95 Mask 10 Notes Mental Status: alert / awake / arousable, participated in evaluation Pt Amnestic to Procedure: Yes Nausea / Vomiting: adequately controlled Pain: adequately controlled Airway Patency, RR, SpO2: stable & adequate BP & HR: stable & adequate Hydration State: stable & adequate Anesthetic Complications: no major complications apparent
[2016-06-28] MEDS ORDERED: HYDROCODONE/ACETAMOPHEN 5/325MG TAB ONE (11:45)
[2016-06-28 12:05] VITALS: BP 89/54; PULSE 69; TEMP 36.2; O2SAT 93
[2016-06-28 13:05] VITALS: BP 91/55; PULSE 58; TEMP 36.4; O2SAT 93
[2016-06-28 14:05] VITALS: BP 94/51; PULSE 63; TEMP 36.3; O2SAT 93
[2016-08-12] MEDS ORDERED: ETONMIS VAGRING (13:06)
[2016-08-12] MEDS ORDERED: EFF75 PO (13:06)
[2016-08-28] MEDS ORDERED: LINA1CAP PO (13:16)
[2016-09-30] MEDS ORDERED: FLX10 PO (10:55)
[2016-09-30] MEDS ORDERED: OXYC-164 PO (10:55)
[2016-11-03] MEDS ORDERED: TOPI1CAP24 PO (09:45)
[2016-12-27] MEDS ORDERED: TOPI200T14 PO (11:08)
[2017-01-13] MEDS ORDERED: OXYC-57 PO (22:23)
== END 2016-06-28 14:15 | disposition home or self-care (01) ==
LOC: C.ACU 05:38
PROVIDERS: ATTEND Obstetrics & Gynecology
DX: N80.3 Endometriosis of pelvic peritoneum (principal); N83.02 Follicular cyst of left ovary; N88.2 Stricture and stenosis of cervix uteri; N92.0 Excessive and frequent menstruation with regular cycle; Z87.891 Personal history of nicotine dependence; Z79.899 Other long term (current) drug therapy

== ENCOUNTER → 2016-07-22 | Outpatient (CLI) | payer BC ==
[~2016-07-22] MED LIST changes: +CMP/10 PO; +CYCL10TA6 PO; +EFF75 PO; +EFFSR150 PO; +ETONMIS VAGRING; +FLX10 PO; +KLN5X PO; +LAMO1TAB21 PO; +LAMO200T38 PO; +LINA1CAP PO; +LINA72CA PO; +LRS10 PO; +LSN5 PO; +MELO15TA4 PO; +NF656 TD; +NUVVR VAGRING; +OXYC-164 PO; +OXYC-57 PO; +PROP120C PO; +RXC5 PO; +TOPI1CAP24 PO; +TOPI200T14 PO
[2016-07-22 18:34] LABS: THYROID STIMULATING HORMONE 0.88 uIu/ml (0.300-4.500)
[2016-07-25 07:25] LABS: MICROSOMAL AB 1 IU/ML (<9)
== END | disposition home or self-care (01) ==
LOC: C.LAB1850 16:55
PROVIDERS: ATTEND Physician Assistant
DX: R94.6 Abnormal results of thyroid function studies (principal)

== ENCOUNTER → 2016-08-15 | Day surgery (SDC) | payer BC ==
[2016-08-12 13:07] VITALS: Ht 162.6 cm; Wt 79.5 kg
[~2016-08-15] VITALS: Ht 162.6 cm; Wt 79.5 kg
[~2016-08-15] MED LIST changes: -EFF/375 PO; -HYDR-5688 PO; +MIDAZOLAM HCL 1 MG/ML 2ML VIAL ONE; +PROPOFOL IV EMULSION 10 MG/ML 20 ML VIAL IV ONE; +SODIUM CHLORIDE 0.9% 500ML 500 ML IV ONE
[2016-08-15 14:22] VITALS: TEMP 36.8
--- NOTE | 2016-08-15 15:02 | Endo History and Physical ---
History & Physical Date of Service: Aug 15, 2016. Chief Complaint: ABDOMINAL PAIN AND BLOATING Referring Physician: DR Rita GOMEZ History of Present Illness 31 yo CF who presents for colonoscopy secondary to abdominal pain and bloating. Past Medical History Neurological Disorder, Asthma, Anxiety, Hypertension, Thyroid Disease, Depression Past Surgical History Hx Cardiac Surgery: No Hx Internal Defibrillator: No Hx Pacemaker: No Hx Abdominal Surgery: Yes (LAP FANG, LAPAROSCOPY'S, LAP LSO) Hx of Implantable Prosthesis: No Hx Post-Op Nausea and Vomiting: No Hx Cancer Surgery: No Hx Thoracic Surgery: No Hx Orthopedic: Yes (RIGHT AND LEFT CTR) Hx Urinary Tract Surgery: Yes (LITHOTRIPSY AND NEPHROSTOMY TUBE(WHILE ) ) Social History Smoking Status: Current Some Day Smoker Hx Substance Use: No Hx Alcohol Use: Yes (RARE) Allergies Coded Allergies: Morphine (Verified Allergy, Intermediate, MAKES HER ANXIOUS, 08/15/16) Tramadol (Verified Allergy, Intermediate, GIVES HER THE SHAKES, 08/15/16) Trazodone (Verified Allergy, Mild, UNKNOWN, 08/15/16) Leuprolide (Verified Allergy, Unknown, Mental complications, 08/15/16) Estradiol (Verified Adverse Reaction, Unknown, "crazy", 08/15/16) ADMITTED TO [facility] D/T SIDE EFFECTS Current Medications Reported Home Medications Medications Dose Route/Sig Max Daily Dose Days Date Category Nuvaring (Ethinyl Estradiol) 1 Ea Vagring 1 Ea VAGRING MONTHLY 08/12/16 Reported Effexor (Venlafaxine Hcl) 75 Mg Tab 75 Mg PO QAM 08/12/16 Reported Relpax (Eletriptan) 40 Mg Tab 40 Mg PO DIRECTED 05/14/16 Reported Zestril (Lisinopril) 5 Mg Tab 5 Mg PO QAM 05/14/16 Reported Topamax (Topiramate) 25 Mg Tab 75 Mg PO BID 03/31/16 Reported Voltaren (Diclofenac Sodium) 50 Mg Tabec 50 Mg PO Q8 PRN 01/14/16 Reported Robaxin (Methocarbamol) 500 Mg Tab 500 Mg PO BID PRN 01/14/16 Reported Propranolol Hcl Er (Propranolol Hcl) 120 Mg Cap 120 Mg PO QAM 01/14/16 Reported Lamictal (Lamotrigine) 200 Mg Tab 200 Mg PO HS 05/31/15 Reported Lamictal (Lamotrigine) 100 Mg Tab 100 Mg PO QAM 05/31/15 Reported Klonopin (Clonazepam) 0.5 Mg Tab 0.25 Mg PO QPM 03/22/15 Reported Vital Signs Weight (Kilograms): 79.55 Height (Feet): 5 Height (Inches): 4 Date Time Temp Pulse Resp B/P (MAP) Pulse Ox O2 Delivery O2 Flow Rate FiO2 08/15/16 14:22 36.8 71 20 120/76 (91) 97 Room Air Physical Exam General Appearance: WD/WN, no apparent distress Respiratory/Chest: Auscultation: breath sounds normal Cardiovascular: Heart Auscultation: RRR Abdomen: Bowel Sounds: normal Inspection & Palpation: soft, non-distended, no tenderness, guarding & rebound Assessment and Plan Assessment: 31 yo CF who presents for colonoscopy secondary to abdominal pain and bloating. Plan: Proceed with colonoscopy.
--- NOTE | 2016-08-15 15:27 | Discharge Instructions ---
Endoscopy Patient Instructions Date / Procedure(s) Performed Aug 15, 2016. Colonoscopy Allergy Information Coded Allergies: Morphine (Verified Allergy, Intermediate, MAKES HER ANXIOUS, 08/15/16) Tramadol (Verified Allergy, Intermediate, GIVES HER THE SHAKES, 08/15/16) Trazodone (Verified Allergy, Mild, UNKNOWN, 08/15/16) Leuprolide (Verified Allergy, Unknown, Mental complications, 08/15/16) Estradiol (Verified Adverse Reaction, Unknown, "crazy", 08/15/16) ADMITTED TO [facility] UN[facility] D/T SIDE EFFECTS Discharge Date / Findings Aug 15, 2016. Terminal ileitis s/p biopsies Random colon biopsies Medication Instructions OK to resume all medications today as prescribed Medications Dose Route/Sig Max Daily Dose Days Date Category Nuvaring (Ethinyl Estradiol) 1 Ea Vagring 1 Ea VAGRING MONTHLY 08/12/16 Reported Effexor (Venlafaxine Hcl) 75 Mg Tab 75 Mg PO QAM 08/12/16 Reported Relpax (Eletriptan) 40 Mg Tab 40 Mg PO DIRECTED 05/14/16 Reported Zestril (Lisinopril) 5 Mg Tab 5 Mg PO QAM 05/14/16 Reported Topamax (Topiramate) 25 Mg Tab 75 Mg PO BID 03/31/16 Reported Voltaren (Diclofenac Sodium) 50 Mg Tabec 50 Mg PO Q8 PRN 01/14/16 Reported Robaxin (Methocarbamol) 500 Mg Tab 500 Mg PO BID PRN 01/14/16 Reported Propranolol Hcl Er (Propranolol Hcl) 120 Mg Cap 120 Mg PO QAM 01/14/16 Reported Lamictal (Lamotrigine) 200 Mg Tab 200 Mg PO HS 05/31/15 Reported Lamictal (Lamotrigine) 100 Mg Tab 100 Mg PO QAM 05/31/15 Reported Klonopin (Clonazepam) 0.5 Mg Tab 0.25 Mg PO QPM 03/22/15 Reported Provider Instructions Activity Restrictions - No exercising or heavy lifting for 24 hours. - Do not drink alcohol the day of the procedure. - Do not drive a car or operate machinery until the day after the procedure. - Do not make any important decisions or sign important papers in 24 hours after the procedure. Following Day: - Return to full activity which may include returning to work/school. Diet Start your diet with liquids and light foods (jello, soup, juice, toast). Then eat your usual diet if not nauseated. Treatment For Common After Affects For mild abdominal pain, bloating, or excessive gas: - Rest - Eat lightly - Lie on right side Follow-Up Information Follow-up with DR Rita GOMEZ as scheduled Anesthesia Information What You Should Know You have had a procedure that required some medicine to reduce anxiety and discomfort. This treatment is called moderate sedation. After receiving the treatment, you may be sleepy, but you will be able to breathe on your own. The effects of the treatment may last for several hours. Follow these instructions along with Activity/Diet recommendations noted above: * Do NOT do anything where dizziness or clumsiness would be dangerous. * Rest quietly at home today, then you can be up and about tomorrow. * Have a responsible person stay with you the rest of today. * You may have had an I.V. today. If so, you may take the dressing off later today. Recommendations Call your doctor if: * Trouble breathing * Continuous vomiting for more than 24 hours * Temperature above 101 degrees * Severe abdominal pain or bloating * Pain not relieved by pain medicine ordered * There is increased drainage or redness from any incision * A large amount of rectal bleeding greater than 2-3 tablespoons. (If you had a polyp/s removed or have hemorrhoids, a small amount of blood - from the rectum is to be expected.) * You have any unanswered questions or concerns. IN THE EVENT OF A SERIOUS EMERGENCY, GO TO THE NEAREST EMERGENCY ROOM Your discharge instructions were prepared by provider Kevin Henry. Patient Instructions Signature Page Reyna Ingram Patient (or Guardian) Signature/Date: I have read and understand the instructions given to me by my caregivers. Caregiver/RN/Doctor Signature/Date: The above-named patient and/or guardian has received patient instructions on this date. + Original Patient Signature Page (only) stays with chart. Please make copy for patient.
--- NOTE | 2016-08-15 15:36 | GI REPORT ---
Procedure Date: 08/15/2016 2:52 PM Procedure: Colonoscopy Indications: Generalized abdominal pain, Heme positive stool Medicines: Monitored Anesthesia Care Complications: No immediate complications. Estimated Blood Loss: Estimated blood loss: none. Procedure: Pre-Anesthesia Assessment: - Prior to the procedure, a History and Physical was performed, and patient medications and allergies were reviewed. The patient's tolerance of previous anesthesia was also reviewed. The risks and benefits of the procedure and the sedation options and risks were discussed with the patient. All questions were answered, and informed consent was obtained. Prior Anticoagulants: The patient has taken no previous anticoagulant or antiplatelet agents. ASA Grade Assessment: II - A patient with mild systemic disease. After reviewing the risks and benefits, the patient was deemed in satisfactory condition to undergo the procedure. After I obtained informed consent, the scope was passed under direct vision. Throughout the procedure, the patient's blood pressure, pulse, and oxygen saturations were monitored continuously. The scope was introduced through the anus and advanced to the terminal ileum. The colonoscopy was performed without difficulty. The patient tolerated the procedure well. The quality of the bowel preparation was good. The terminal ileum, ileocecal valve, appendiceal orifice, and rectum were photographed. Findings: Localized inflammation, mild in severity was found in the terminal ileum. Biopsies were taken with a cold forceps for histology. The colon (entire examined portion) appeared normal. Several random biopsies were obtained with cold forceps for histology in the entire colon. Impression: - Ileitis. Biopsied. - The entire examined colon is normal. - Several random biopsies were obtained in the entire colon. Recommendation: - Resume previous diet. - Continue present medications. - Repeat colonoscopy for surveillance based on pathology results. - Return to primary care physician as previously scheduled. Kevin Henry DO 08/15/2016 3:35:40 PM This report has been signed electronically. Note Initiated On: 08/15/2016 2:52 PM I attest to the content of the Intraoperative Record and orders documented therein, exceptions below
--- NOTE | 2016-08-15 15:41 | Anesthesiology Progress Note ---
Anesthesia Post Op Note Date & Time Aug 15, 2016 at 15:40 Vital Signs Pain Intensity: 2 Vital Signs Past 12 Hours Date Time Temp Pulse Resp B/P (MAP) Pulse Ox O2 Delivery O2 Flow Rate FiO2 08/15/16 15:28 69 18 108/65 (79) 100 Room Air 08/15/16 14:22 36.8 71 20 120/76 (91) 97 Room Air Notes Mental Status: alert / awake / arousable, participated in evaluation Pt Amnestic to Procedure: Yes Nausea / Vomiting: adequately controlled Pain: adequately controlled Airway Patency, RR, SpO2: stable & adequate BP & HR: stable & adequate Hydration State: stable & adequate Anesthetic Complications: no major complications apparent
[2016-08-15 15:54] VITALS: BP 105/65; PULSE 60; O2SAT 100
== END | disposition home or self-care (01) ==
LOC: C.GI 13:54
PROVIDERS: ATTEND Internal Medicine
DX: K50.011 Crohn's disease of small intestine with rectal bleeding (principal); I10 Essential (primary) hypertension; J45.909 Unspecified asthma, uncomplicated; E07.9 Disorder of thyroid, unspecified; R29.818 Other symptoms and signs involving the nervous system; F41.9 Anxiety disorder, unspecified; F32.9 Major depressive disorder, single episode, unspecified; F17.210 Nicotine dependence, cigarettes, uncomplicated; Z79.899 Other long term (current) drug therapy

== ENCOUNTER → 2016-08-28 | Outpatient (CLI) | payer BC ==
[~2016-08-28] MED LIST changes: -MIDAZOLAM HCL 1 MG/ML 2ML VIAL ONE; -PROPOFOL IV EMULSION 10 MG/ML 20 ML VIAL IV ONE; -SODIUM CHLORIDE 0.9% 500ML 500 ML IV ONE
[2016-08-28 18:11] LABS: ALT/SGPT 20 U/L (12-78); AST/SGOT 7 U/L (15-37); BLOOD UREA NITROGEN 10 mg/dl (7-18); BUN/CREATININE RATIO 15.4 (10-20); CALCIUM 8.8 mg/dl (8.5-10.1); CARBON DIOXIDE 25 mmol/L (21-32); CHLORIDE 108 mmol/L (98-107); CREATININE 0.62 mg/dl (0.60-1.20); GLUCOSE 76 mg/dl (70-99); SODIUM 140 mmol/L (136-145)
[2016-08-28 18:13] LABS: ALKALINE PHOSPHATASE 95 U/L (45-117); C-REACTIVE PROTEIN 0.59 mg/dl (0-0.29)
== END | disposition home or self-care (01) ==
LOC: C.LAB1850 16:27
PROVIDERS: ATTEND Internal Medicine
DX: K52.9 Noninfective gastroenteritis and colitis, unspecified (principal); R10.32 Left lower quadrant pain; R14.0 Abdominal distension (gaseous); K92.1 Melena

== ENCOUNTER 2016-09-25 08:40 | Inpatient (IN) | payer BC, OTHER ==
[~2016-09-25] VITALS: Ht 162.6 cm; Wt 89.7 kg
[~2016-09-25 08:40] MED LIST changes: -CMP/10 PO; -CYCL10TA6 PO; -EFFSR150 PO; -FLX10 PO; -KLN5X PO; -LAMO1TAB21 PO; -LAMO200T38 PO; -LINA72CA PO; -LRS10 PO; -LSN5 PO; -MELO15TA4 PO; -NF656 TD; -NUVVR VAGRING; -OXYC-164 PO; -OXYC-57 PO; -PROP120C PO; -RXC5 PO; -TOPI1CAP24 PO; -TOPI200T14 PO
[2016-09-25] MEDS ORDERED: SODIUM CHLORIDE 0.9% 1000ML 1,000 ML IV STA (08:49)
[2016-09-25] MEDS ORDERED: OPTIRAY 320 IV PRN (09:00)
[2016-09-25 09:11] LABS: ISTAT CREATININE 0.7 mg/dl (0.6-1.3); ISTAT HEMOGLOBIN 12.2 g/dl (12.0-16.0); ISTAT IONIZED CALCIUM 1.24 mmol/l (1.12-1.32)
[2016-09-25 09:14] LABS: BASO % 0.5 %; BASO ABS # 0.04 K/uL (0-0.2); COMPLETE YES; EOS % 4.8 %; HEMATOCRIT 36.2 % (37-47); IG% 0.1 %; LYMPH % 27.5 %; LYMPH ABS # 2.12 K/uL (1.2-3.4); MEAN CELL VOLUME 90.5 fL (80-100); MEAN CORPUSCULAR HEMOGLOBIN 29.8 pg (25-34); MEAN CORPUSCULAR HGB CONC 32.9 g/dl (32-36); MEAN PLATELET VOLUME 9.4 fL (7.4-10.4); MONO % 7.8 %; NEUT % 59.3 %; PLATELET COUNT 426 K/uL (130-400); WHITE BLOOD COUNT 7.72 K/uL (4.8-10.8)
[2016-09-25 09:15] LABS: PARTIAL THROMBOPLASTIN RATIO 1.1; PROTHROMBIN TIME (PATIENT) 10.3 SECONDS (9.0-12.0)
[2016-09-25] MEDS ORDERED: HYDROmorphone INJ 1 MG/ML SYR IV PRN (09:15)
[2016-09-25] MEDS ORDERED: ONDANSETRON INJ 2 MG/ML 2 ML VIAL IV PRN ×2 (09:15→14:00)
[2016-09-25 09:21] LABS: ALT/SGPT 22 U/L (12-78); BLOOD UREA NITROGEN 12 mg/dl (7-18); BUN/CREATININE RATIO 14.8 (10-20); CALCIUM 8.5 mg/dl (8.5-10.1); CARBON DIOXIDE 19 mmol/L (21-32); CHLORIDE 114 mmol/L (98-107); CREATININE 0.82 mg/dl (0.60-1.20); GLUCOSE 90 mg/dl (70-99); POTASSIUM 4.3 mmol/L (3.5-5.1); SODIUM 139 mmol/L (136-145)
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
[2016-09-25 09:26] LABS: ALB/GLOB RATIO 0.9 (0.9-2); ALKALINE PHOSPHATASE 83 U/L (45-117); AST/SGOT 12 U/L (15-37)
[2016-09-25 09:30] LABS: MANUAL MICROSCOPIC REQUIRED? YES; URINE APPEARANCE CLEAR (CLEAR); URINE BILIRUBIN NEG (NEG); URINE COLOR YELLOW; URINE NITRITE NEG (NEG); URINE PH 5.5 (4.5-7.5); URINE SPECIFIC GRAVITY <= 1.005 (1.000-1.030); UROBILINOGEN NEG (NEG)
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
[2016-09-25 09:34] LABS: REVIEW REQ? NO
[2016-09-25 09:41] LABS: URINE BACTERIA NEG (NEG); URINE RBC 0-4 /hpf (0-4); URINE WBC 0 /hpf (0-5)
[2016-09-25 09:42] LABS: ZZURINE CULT IF INDIC CATH NO
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
[2016-09-25] MEDS ORDERED: HYDROmorphone INJ 1 MG/ML SYR IV ONE (10:00)
[2016-09-25] MEDS ORDERED: PROMETHAZINE HCL INJ 12.5 MG in SODIUM CHLORIDE 0.9% 50ML 50 ML IV STA (10:30)
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
[2016-09-25] MEDS: SODIUM CHLORIDE 0.9% 1000ML 1,000 ML IV SCH ×2 (12:00→13:53)
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
[2016-09-25 12:40] VITALS: O2SAT 99; Ht 162.6 cm; Wt 89.7 kg
[2016-09-25] MEDS ORDERED: POLYETHYLENE (MIRALAX) 17 GM PACK PO PRN (14:00)
[2016-09-25] MEDS ORDERED: ACETAMINOPHEN 325 MG TAB PO PRN (14:00)
[2016-09-25 15:00] VITALS: BP 107/67; PULSE 66; TEMP 36.5; O2SAT 99
[2016-09-25] MEDS: HYDROmorphone INJ 1 MG/ML SYR IV PRN ×3 (15:31→21:43)
[2016-09-25] MEDS: CLONAZEPAM 0.5 MG TAB PO SCH (21:25)
[2016-09-25] MEDS: METHOCARBAMOL 500 MG TAB PO PRN (21:27)
[2016-09-25] MEDS ORDERED: NURSING VERBAL MED ORDER ONE (21:45)
[2016-09-25] MEDS: LINZESS 72 MCG PO SCH (22:42)
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
[2016-09-25 23:45] VITALS: BP 94/58; PULSE 65; TEMP 36.6; O2SAT 97
[2016-09-26] MEDS: HYDROmorphone INJ 1 MG/ML SYR IV PRN ×8 (01:06→23:16)
[2016-09-26 06:58] LABS: BASO % 0.3 %; BASO ABS # 0.03 K/uL (0-0.2); COMPLETE YES; EOS % 4.5 %; HEMATOCRIT 34.6 % (37-47); IG% 0.2 %; LYMPH ABS # 3.19 K/uL (1.2-3.4); MEAN CELL VOLUME 91.8 fL (80-100); MEAN CORPUSCULAR HEMOGLOBIN 30.2 pg (25-34); MEAN CORPUSCULAR HGB CONC 32.9 g/dl (32-36); MEAN PLATELET VOLUME 9.5 fL (7.4-10.4); MONO % 7.9 %; NEUT % 50.1 %; PLATELET COUNT 351 K/uL (130-400); RED BLOOD COUNT 3.77 M/uL (4.2-5.4); WHITE BLOOD COUNT 8.62 K/uL (4.8-10.8)
[2016-09-26 07:29] LABS: BUN/CREATININE RATIO 8.1 (10-20); CALCIUM 8.2 mg/dl (8.5-10.1); CREATININE 0.67 mg/dl (0.60-1.20); POTASSIUM 3.8 mmol/L (3.5-5.1)
[2016-09-26 07:56] VITALS: BP 98/58; PULSE 70; TEMP 37; O2SAT 100
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
[2016-09-26] MEDS: VENLAFAXINE HCL XR 150 MG CAPXR PO SCH (08:21)
[2016-09-26] MEDS: PROPRANOLOL HCL 60 MG LA CAP PO SCH (08:21)
[2016-09-26] MEDS: LISINOPRIL 5 MG TAB PO SCH (08:28)
[2016-09-26] MEDS: METHOCARBAMOL 500 MG TAB PO PRN ×2 (08:29→19:16)
[2016-09-26] MEDS: OXYCODONE HCL IR 5 MG TAB (IMMEDIATE RELEASE) PO PRN ×4 (08:56→21:50)
[2016-09-26] MEDS: TOPIRAMATE 150 MG PO SCH (09:00)
[2016-09-26 09:41] VITALS: O2SAT 100
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
--- NOTE | 2016-09-26 13:14 | Psychiatric Progress Notes ---
Psychiatric Progress Note Date of Service Sep 26, 2016. Notes Consult placed to evaluate patient for depression and anxiety. Attempted to see the patient X 2 without success. Will try again in the AM.
[2016-09-26 14:57] VITALS: BP 98/59; PULSE 66; TEMP 36.9; O2SAT 100
[2016-09-26] MEDS: CLONAZEPAM 0.5 MG TAB PO SCH (21:48)
[2016-09-26] MEDS: LINZESS 72 MCG PO SCH (21:51)
[2016-09-26 22:55] VITALS: BP 114/69; PULSE 69; TEMP 36.5; O2SAT 99
[2016-09-27] MEDS: OXYCODONE HCL IR 5 MG TAB (IMMEDIATE RELEASE) PO PRN ×5 (02:07→21:41)
[2016-09-27 04:44] VITALS: BP 119/63; PULSE 72; O2SAT 97
[2016-09-27] MEDS: HYDROmorphone INJ 1 MG/ML SYR IV PRN ×5 (04:46→22:43)
[2016-09-27 06:58] LABS: BASO % 0.6 %; BASO ABS # 0.05 K/uL (0-0.2); COMPLETE YES; HEMATOCRIT 35.8 % (37-47); IG% 0.1 %; LYMPH % 37.5 %; LYMPH ABS # 3.04 K/uL (1.2-3.4); MEAN CELL VOLUME 91.8 fL (80-100); MEAN CORPUSCULAR HEMOGLOBIN 29.5 pg (25-34); MEAN CORPUSCULAR HGB CONC 32.1 g/dl (32-36); MEAN PLATELET VOLUME 9.3 fL (7.4-10.4); MONO % 10.1 %; NEUT % 45.7 %; PLATELET COUNT 385 K/uL (130-400); WHITE BLOOD COUNT 8.11 K/uL (4.8-10.8)
[2016-09-27 07:32] VITALS: BP 96/58; PULSE 62; TEMP 36.8; O2SAT 100
[2016-09-27 07:34] LABS: BUN/CREATININE RATIO 4.7 (10-20); CALCIUM 8.5 mg/dl (8.5-10.1); CREATININE 0.66 mg/dl (0.60-1.20); POTASSIUM 3.8 mmol/L (3.5-5.1)
--- NOTE | 2016-09-27 07:54 | DIAGNOSTIC IMAGING REPORT ---
CHEST ONE VIEW PORTABLE CLINICAL HISTORY: shortness of breath dyspnea COMPARISON STUDY: 10/14/2014 FINDINGS: The bones soft tissues and hemidiaphragms are normal. The cardiomediastinal silhouette is normal. The lungs are clear. The pulmonary vasculature is normal. IMPRESSION: Negative chest. The above report was generated using voice recognition software. It may contain grammatical, syntax or spelling errors. Electronically signed by: Lucius Galeano M.D. 09/27/2016 7:52 AM Dictated Date/Time: 09/27/2016 7:52 AM
[2016-09-27] MEDS: METHOCARBAMOL 500 MG TAB PO PRN ×2 (08:59→21:07)
[2016-09-27] MEDS: VENLAFAXINE HCL XR 150 MG CAPXR PO SCH (09:00)
[2016-09-27] MEDS: PROPRANOLOL HCL 60 MG LA CAP PO SCH (09:00)
[2016-09-27] MEDS: LISINOPRIL 5 MG TAB PO SCH (09:00)
[2016-09-27] MEDS: TOPIRAMATE 150 MG PO SCH (09:01)
[2016-09-27] MEDS: ENOXAPARIN 40 MG/0.4 ML SYR SQ SCH (09:08)
[2016-09-27] MEDS ORDERED: NURSING VERBAL MED ORDER ONE (11:00)
[2016-09-27] MEDS ORDERED: HYDROmorphone INJ 1 MG/ML SYR IV ONE (11:15)
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
[2016-09-27] MEDS ORDERED: POLYETHYLENE (MIRALAX) 17 GM PACK PO PRN (12:15)
[2016-09-27] MEDS ORDERED: POLYETHYLENE (MIRALAX) 17 GM PACK PO STA (12:15)
[2016-09-27] MEDS ORDERED: DOCUSATE SODIUM 100 MG CAP PO ONE (12:15)
[2016-09-27] MEDS ORDERED: PANTOprazole SOD 40 MG TAB PO ONE (12:30)
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
[2016-09-27 16:00] VITALS: BP 104/59; PULSE 61; O2SAT 100
[2016-09-27] MEDS: ELETRIPTAN HYDROBROMIDE 40 MG PO PRN (16:24)
[2016-09-27] MEDS: CLONAZEPAM 0.5 MG TAB PO SCH (21:05)
[2016-09-27] MEDS: LINZESS 72 MCG PO SCH (21:06)
[2016-09-27] MEDS: DOCUSATE SODIUM 100 MG CAP PO SCH (21:06)
[2016-09-27 22:56] VITALS: BP 112/63; PULSE 66; TEMP 36.4; O2SAT 100
[2016-09-28] MEDS: HYDROmorphone INJ 1 MG/ML SYR IV PRN ×2 (04:01→11:42)
[2016-09-28 07:47] VITALS: BP 117/70; PULSE 66; TEMP 36.9; O2SAT 100
[2016-09-28] MEDS ORDERED: LINACLOTIDE 145 MCG CAP PO SCH (09:00)
[2016-09-28] MEDS: OXYCODONE HCL IR 5 MG TAB (IMMEDIATE RELEASE) PO PRN ×2 (09:01→18:25)
[2016-09-28] MEDS: PANTOprazole SOD 40 MG TAB PO SCH (09:02)
[2016-09-28] MEDS: ENOXAPARIN 40 MG/0.4 ML SYR SQ SCH (09:02)
[2016-09-28] MEDS: LISINOPRIL 5 MG TAB PO SCH (09:03)
[2016-09-28] MEDS: TOPIRAMATE 150 MG PO SCH (09:03)
[2016-09-28] MEDS: PROPRANOLOL HCL 60 MG LA CAP PO SCH (09:05)
[2016-09-28] MEDS: DOCUSATE SODIUM 100 MG CAP PO SCH ×2 (09:08→21:08)
[2016-09-28] MEDS: VENLAFAXINE HCL XR 150 MG CAPXR PO SCH (09:08)
[2016-09-28] MEDS: METHOCARBAMOL 500 MG TAB PO PRN ×2 (11:42→21:08)
[2016-09-28] MEDS: LINACLOTIDE 145 MCG CAP PO PRN (11:42)
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
[2016-09-28 15:28] LABS: BENZODIAZEPINE, URINE NEG (NEG); COCAINE,URINE NEG (NEG); PHENCYCLIDINE, URINE NEG (NEG)
[2016-09-28 15:34] VITALS: BP 106/71; PULSE 65; TEMP 36.8; O2SAT 97
[2016-09-28] MEDS ORDERED: NURSING VERBAL MED ORDER ONE (20:45)
[2016-09-28] MEDS ORDERED: OXYCODONE HCL IR 5 MG TAB (IMMEDIATE RELEASE) PO ONE (21:00)
[2016-09-28] MEDS: CLONAZEPAM 0.5 MG TAB PO SCH (21:03)
[2016-09-28] MEDS: ELETRIPTAN HYDROBROMIDE 40 MG PO PRN (21:08)
[2016-09-28 22:45] VITALS: BP 97/59; PULSE 59; TEMP 36.9; O2SAT 96
[2016-09-29] MEDS: OXYCODONE HCL IR 5 MG TAB (IMMEDIATE RELEASE) PO PRN ×3 (01:23→15:48)
[2016-09-29] MEDS: METHOCARBAMOL 500 MG TAB PO PRN (05:01)
[2016-09-29 06:55] VITALS: BP 97/61; PULSE 69; TEMP 36.5; O2SAT 99
[2016-09-29] MEDS ORDERED: EFFSR150 PO (07:30)
[2016-09-29] MEDS ORDERED: RXC5 PO ×2 (07:30→07:41)
[2016-09-29] MEDS: PROPRANOLOL HCL 60 MG LA CAP PO SCH (07:54)
[2016-09-29] MEDS: DOCUSATE SODIUM 100 MG CAP PO SCH ×2 (07:54→20:54)
[2016-09-29] MEDS: VENLAFAXINE HCL XR 150 MG CAPXR PO SCH (07:54)
[2016-09-29] MEDS: TOPIRAMATE 150 MG PO SCH (07:55)
[2016-09-29] MEDS: PANTOprazole SOD 40 MG TAB PO SCH (07:55)
[2016-09-29] MEDS: ENOXAPARIN 40 MG/0.4 ML SYR SQ SCH (07:56)
[2016-09-29] MEDS: LISINOPRIL 5 MG TAB PO SCH (07:56)
[2016-09-29] MEDS: LINACLOTIDE 145 MCG CAP PO PRN (07:57)
[2016-09-29] MEDS ORDERED: CYCLOBENZAPRINE HCL 10 MG TAB PO STA (08:48)
[2016-09-29] MEDS ORDERED: CYCLOBENZAPRINE HCL 10 MG TAB PO SCH (09:00)
[2016-09-29] MEDS ORDERED: SOD PHOSPHATE/SOD BIPHOSPHATE ENEMA 132 ML BTL PR PRN (09:00)
[2016-09-29] MEDS: LIDODERM (LIDOCAINE) PATCH 5% TD SCH (10:03)
[2016-09-29 14:56] VITALS: BP 106/72; PULSE 76; TEMP 37.1; O2SAT 96
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
[2016-09-29] MEDS ORDERED: NURSING VERBAL MED ORDER ONE (19:30)
[2016-09-29] MEDS ORDERED: SOD PHOSPHATE/SOD BIPHOSPHATE ENEMA 132 ML BTL PR STA (19:56)
[2016-09-29] MEDS ORDERED: SODIUM CHLORIDE 0.65% NA SOLN 45 ML (OCEAN) PRN (20:00)
[2016-09-29] MEDS ORDERED: BISACODYL 10 MG SUPP PR PRN (20:00)
[2016-09-29] MEDS: CLONAZEPAM 0.5 MG TAB PO SCH (21:07)
[2016-09-29] MEDS ORDERED: HYDROmorphone INJ 0.5 MG/0.5 ML SYR IV STA (21:39)
[2016-09-29] MEDS ORDERED: HYDROmorphone INJ 0.5 MG/0.5 ML SYR IV PRN (21:45)
[2016-09-29] MEDS ORDERED: HYDROmorphone HCL 2 MG TAB PO PRN (21:45)
[2016-09-29 22:07] LABS: PREG INTERNAL NEGATIVE QC NEG CLEAR BACKGROUND; PREG INTERNAL POSITIVE QC POS CONTROL LINE
[2016-09-29] MEDS ORDERED: HYDROmorphone HCL 2 MG TAB PO ONE (22:15)
[2016-09-29] MEDS ORDERED: HYDROmorphone INJ 1 MG/ML SYR IM ONE (22:15)
[2016-09-29 23:10] VITALS: BP 93/57; PULSE 70; TEMP 37; O2SAT 95
[2016-09-30] MEDS: OXYCODONE HCL IR 5 MG TAB (IMMEDIATE RELEASE) PO PRN ×4 (00:32→15:15)
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
[2016-09-30 07:18] VITALS: BP 101/66; PULSE 59; TEMP 36.9; O2SAT 100
[2016-09-30 07:26] LABS: HEMATOCRIT 36.7 % (37-47); MEAN CELL VOLUME 88.6 fL (80-100); MEAN CORPUSCULAR HGB CONC 32.7 g/dl (32-36); PLATELET COUNT 413 K/uL (130-400); RED BLOOD COUNT 4.14 M/uL (4.2-5.4)
[2016-09-30 08:01] LABS: CREATININE 0.74 mg/dl (0.60-1.20)
[2016-09-30] MEDS: METHOCARBAMOL 500 MG TAB PO PRN (08:21)
[2016-09-30] MEDS: LIDODERM (LIDOCAINE) PATCH 5% TD SCH (08:21)
[2016-09-30] MEDS: PANTOprazole SOD 40 MG TAB PO SCH (08:22)
[2016-09-30] MEDS: LISINOPRIL 5 MG TAB PO SCH (08:22)
[2016-09-30] MEDS: DOCUSATE SODIUM 100 MG CAP PO SCH (08:22)
[2016-09-30] MEDS: VENLAFAXINE HCL XR 150 MG CAPXR PO SCH (08:22)
[2016-09-30] MEDS: PROPRANOLOL HCL 60 MG LA CAP PO SCH (08:23)
[2016-09-30] MEDS: ENOXAPARIN 40 MG/0.4 ML SYR SQ SCH (08:23)
[2016-09-30] MEDS: TOPIRAMATE 150 MG PO SCH (08:25)
[2016-09-30] MEDS ORDERED: CYCLOBENZAPRINE HCL 10 MG TAB PO SCH (09:00)
[2016-09-30] MEDS: LINACLOTIDE 145 MCG CAP PO PRN (10:05)
[2016-09-30] MEDS ORDERED: FLX10 PO (10:55)
[2016-09-30] MEDS ORDERED: OXYC-164 PO (10:55)
[2016-09-30 13:12] VITALS: BP 101/66; PULSE 59; TEMP 36.9; O2SAT 100
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
[2016-09-30 15:10] VITALS: BP 110/67; PULSE 61; TEMP 36.9; O2SAT 94
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
[2016-10-02 10:36] LABS: COD UR NEGATIVE NG/ML (CUTOFF=50); HYDROCOD UR NEGATIVE NG/ML (CUTOFF=50); HYDROMOR UR 392 NG/ML (CUTOFF=50); MORPHINE UR NEGATIVE NG/ML (CUTOFF=50); NORHYDROCODONE CONF UR NEGATIVE NG/ML (CUTOFF=50); OXYMORPH UR 88 NG/ML (CUTOFF=50)
[2016-11-03] MEDS ORDERED: TOPI1CAP24 PO (09:45)
== END 2016-09-30 16:45 | disposition home or self-care (01) | DRG 155 ==
LOC: EDBD 08:40 → C.EDB 08:41 → C.MSN 14:03 → ENRESERV 14:25
PROVIDERS: ADMIT Family Medicine; ATTEND Internal Medicine
DX: S02.2XXA Fracture of nasal bones, initial encounter for closed fracture (principal); K50.00 Crohn's disease of small intestine without complications; S30.0XXA Contusion of lower back and pelvis, initial encounter; S40.012A Contusion of left shoulder, initial encounter; S70.02XA Contusion of left hip, initial encounter; R91.1 Solitary pulmonary nodule; M54.2 Cervicalgia; F32.9 Major depressive disorder, single episode, unspecified; N93.8 Other specified abnormal uterine and vaginal bleeding; N80.9 Endometriosis, unspecified; F41.9 Anxiety disorder, unspecified; K58.9 Irritable bowel syndrome, unspecified; N20.0 Calculus of kidney; I10 Essential (primary) hypertension; G43.909 Migraine, unspecified, not intractable, without status migrainosus; F07.81 Postconcussional syndrome; G89.21 Chronic pain due to trauma; E66.9 Obesity, unspecified; F17.200 Nicotine dependence, unspecified, uncomplicated; Z79.899 Other long term (current) drug therapy; Z68.33 Body mass index [BMI] 33.0-33.9, adult; Z83.3 Family history of diabetes mellitus; Z82.49 Family history of ischemic heart disease and other diseases of the circulatory system; Z82.3 Family history of stroke; V43.52XA Car driver injured in collision with other type car in traffic accident, initial encounter; Y93.I9 Activity, other involving external motion; Y99.8 Other external cause status

== ENCOUNTER → 2016-10-30 | Outpatient (CLI) | payer OTHER, BC ==
[~2016-10-30] MED LIST changes: +CMP/10 PO; +CYCL10TA6 PO; -EFF75 PO; +EFFSR150 PO; +FLX10 PO; +KLN5X PO; +LAMO1TAB21 PO; +LAMO200T38 PO; +LINA72CA PO; +LRS10 PO; +LSN5 PO; +MELO15TA4 PO; +NF656 TD; +NUVVR VAGRING; +OXYC-164 PO; +OXYC-57 PO; +PROP120C PO; +TOPI1CAP24 PO; -TOPI25TA99 PO
--- NOTE | 2016-10-30 14:55 | DIAGNOSTIC IMAGING REPORT ---
LUMBAR SPINE W/O CONTRAST CLINICAL HISTORY: 31 years-old Female with LUMBAR RADICULOPATHY. Patient presents with chronic low back pain with radiation into the bilateral lower extremities. COMPARISON: CT abdomen and pelvis 09/25/2016. TECHNIQUE: Multiplanar, multi sequence MRI of the lumbar spine was performed without intravenous contrast. FINDINGS: The large bvelm-gh-[id number] braille coder images demonstrate no gross abnormality. 3.9 x 4.0 x 4.2 cm cystic structure of the right hemipelvis suggests an ovarian cyst. Patient reportedly had difficulty holding still secondary to muscle spasms. Exam is limited secondary to patient motion. Conus medullaris terminates at T12-L1. There is no focal bone marrow edema or fracture. T12-L1: Mild endplate changes without significant central canal or foraminal narrowing. L1-L2: Small Schmorl's node involves superior endplate L2. No central canal or foraminal narrowing. L2-L3: No central canal or neural foraminal stenosis. Mild facet arthropathy with small facet effusions. L3-L4: Mildly decreased disc height space and signal is noted in conjunction with mild facet arthropathy. Broad-based posterior disc bulge effaces the ventral thecal sac without significant central canal or foraminal narrowing. L4-L5: Mild to moderately decreased disc height space is noted with disc desiccation. Additionally, there is mild facet arthropathy with small right facet effusions. Broad-based posterior disc bulge is noted in conjunction with an annular fissure with small discal cyst seen, 0.5 x 1.1 x 0.4 cm in the region of the annular fissure. There is resultant effacement of the ventral thecal sac with mild inferior bilateral foraminal narrowing. No significant central canal stenosis. L5-S1: Mildly decreased disc height space and mild facet arthrosis without central canal or foraminal narrowing. IMPRESSION: 1. Discogenic degeneration with broad-based posterior disc bulge, annular fissure and small discal cyst is present at L4-L5 with effacement of the ventral thecal sac causing mild bilateral inferior neural foraminal stenosis. There is no significant central canal narrowing at this level. 2. At L4-L5, discogenic degeneration and mild facet arthrosis is noted without significant central canal or foraminal narrowing. 3. Cystic structure of the right hemipelvis measuring up to 4.2 cm is seen on the large [id number] images suggesting ovarian cyst. This could be correlated with pelvic ultrasound. The above report was generated using voice recognition software. It may contain grammatical, syntax or spelling errors. Electronically signed by: Ryder Corral M.D. 10/30/2016 2:53 PM Dictated Date/Time: 10/30/2016 2:45 PM
== END | disposition home or self-care (01) ==
LOC: C.MRI 13:21
PROVIDERS: ATTEND Physician Assistant Medical
DX: M51.16 Intervertebral disc disorders with radiculopathy, lumbar region (principal)

== ENCOUNTER 2016-11-03 15:23 | Emergency (ER) | payer OTHER, BC ==
[~2016-11-03] VITALS: Ht 162.6 cm; Wt 83.0 kg
[~2016-11-03 15:23] MED LIST changes: -CMP/10 PO; -CYCL10TA6 PO; -KLN5X PO; -LAMO1TAB21 PO; -LAMO200T38 PO; -LINA72CA PO; -LRS10 PO; -LSN5 PO; -MELO15TA4 PO; -NF656 TD; -NUVVR VAGRING; -OXYC-164 PO; -OXYC-57 PO; -PROP120C PO
[2016-11-03 15:27] VITALS: TEMP 36.4; Ht 162.6 cm; Wt 83.0 kg
[2016-11-03] MEDS ORDERED: ONDANSETRON INJ 2 MG/ML 2 ML VIAL IV STA ×2 (16:00→17:44)
[2016-11-03] MEDS ORDERED: KETOROLAC TROMETHAMINE 30 MG/ML VIAL IV STA (16:00)
[2016-11-03] MEDS ORDERED: CYCLOBENZAPRINE HCL 5 MG TAB PO STA (16:00)
[2016-11-03] MEDS ORDERED: DEXAMETHASONE SOD INJ 10 MG/ML VIAL IV ONE (16:00)
[2016-11-03] MEDS ORDERED: HYDROmorphone INJ 1 MG/ML SYR IV STA (16:00)
[2016-11-03] MEDS ORDERED: LIDODERM (LIDOCAINE) PATCH 5% TD STA (16:00)
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
[2016-11-03] MEDS ORDERED: MELO15TA4 PO (16:04)
[2016-11-03] MEDS ORDERED: LSN5 PO (16:04)
[2016-11-03] MEDS ORDERED: EFFSR150 PO (16:04)
[2016-11-03] MEDS ORDERED: LAMO1TAB21 PO (16:04)
[2016-11-03] MEDS ORDERED: LINA72CA PO (16:04)
[2016-11-03] MEDS ORDERED: NUVVR VAGRING (16:04)
[2016-11-03] MEDS ORDERED: LRS10 PO (16:04)
[2016-11-03] MEDS ORDERED: OXYC-164 PO (16:04)
[2016-11-03] MEDS ORDERED: ELET40TA PO (16:04)
[2016-11-03] MEDS ORDERED: LAMO200T38 PO (16:04)
[2016-11-03] MEDS ORDERED: CMP/10 PO (16:04)
[2016-11-03] MEDS ORDERED: KLN5X PO (16:04)
[2016-11-03 16:21] LABS: BASO % 0.4 %; BASO ABS # 0.03 K/uL (0-0.2); COMPLETE YES; EOS % 1.9 %; HEMATOCRIT 41.2 % (37-47); IG% 0.3 %; LYMPH % 33.8 %; LYMPH ABS # 2.33 K/uL (1.2-3.4); MEAN CELL VOLUME 88.8 fL (80-100); MEAN CORPUSCULAR HEMOGLOBIN 29.5 pg (25-34); MEAN CORPUSCULAR HGB CONC 33.3 g/dl (32-36); MEAN PLATELET VOLUME 9.5 fL (7.4-10.4); MONO % 9.4 %; NEUT % 54.2 %; PLATELET COUNT 408 K/uL (130-400); RED BLOOD COUNT 4.64 M/uL (4.2-5.4)
[2016-11-03 16:40] LABS: ALT/SGPT 16 U/L (12-78); BLOOD UREA NITROGEN 13 mg/dl (7-18); BUN/CREATININE RATIO 14.5 (10-20); CALCIUM 9.4 mg/dl (8.5-10.1); CARBON DIOXIDE 22 mmol/L (21-32); CHLORIDE 107 mmol/L (98-107); CREATININE 0.89 mg/dl (0.60-1.20); GLUCOSE 92 mg/dl (70-99); POTASSIUM 3.6 mmol/L (3.5-5.1); SODIUM 138 mmol/L (136-145)
[2016-11-03 16:43] LABS: ALKALINE PHOSPHATASE 124 U/L (45-117); AST/SGOT 13 U/L (15-37)
--- NOTE | 2016-11-03 17:50 | DIAGNOSTIC IMAGING REPORT ---
LUMBAR SPINE WITHOUT HISTORY: 31 years-old Female acute low back pain without reported trauma. COMPARISON: Lumbar spine MRI 10/30/2016 TECHNIQUE: Multiple axial CT images of the lumbar spine were obtained without contrast. A dose lowering technique was used consistent with the principals of ALARA. FINDINGS: Transitional lumbosacral anatomy is noted with pseudoarticulation of an elongated right transverse process L5 with the sacral ala, nicely seen on image 42 of series 200. No acute fracture or dislocation of the lumbar spine identified. Small Schmorl's nodes are seen within the superior endplates of several levels. Minimal anterior wedging of less than 20% is unchanged at T12, likely physiologic. There is mild facet arthrosis of the lower lumbar levels. Sacrum appears intact. 3 mm nonobstructing calculus involves the interpolar right kidney. Portion of the appendix is imaged and appears normal. Level by level analysis of the central canal and neuroforamina is better evaluated on comparison MRI 10/30/2016. Please see the MRI report for any discrepancy. T12-L1: No significant central canal or foraminal narrowing. L1-L2: Mild facet arthrosis without significant central canal or foraminal narrowing. L2-L3: Mild facet arthrosis thousand and central canal or foraminal narrowing. L3-L4: Mild intervertebral disc space narrowing with broad-based posterior disc bulge causes partial effacement of the ventral thecal sac without central canal or foraminal narrowing. L4-L5: Mild to moderate intervertebral disc space narrowing with mild facet arthrosis and broad-based posterior disc bulge. Previously noted small annular fissure is not well delineated. Small discal cyst is again seen, 0.4 x 1.1 cm on image 220 of series 3. There is partial effacement of ventral thecal sac without significant central canal narrowing. There is mild inferior bilateral foraminal stenosis redemonstrated. L5-S1: Mild intervertebral disc space narrowing and facet arthrosis. No central canal or foraminal narrowing. IMPRESSION: 1. No acute fracture or subluxation of the lumbar spine. 2. Intervertebral disc space narrowing with facet arthrosis and broad-based posterior disc bulge at L4-L5 is redemonstrated causing partial effacement of the ventral thecal sac with mild bilateral foraminal narrowing. No significant central canal stenosis. These changes are better evaluated and discussed on the comparison MRI study dated 10/30/2016. 3. Nonobstructing 3 mm calculus of the interpolar right kidney incidentally noted. 4. Transitional lumbosacral anatomy is noted with pseudoarticulation of an elongated right transverse process L5 with the right sacral ala. The above report was generated using voice recognition software. It may contain grammatical, syntax or spelling errors. Electronically signed by: Ryder Corral M.D. 11/03/2016 5:49 PM Dictated Date/Time: 11/03/2016 5:41 PM
--- NOTE | 2016-11-03 17:54 | DIAGNOSTIC IMAGING REPORT ---
PELVIS NO IV/ORAL CONT (CT) HISTORY: 31 years-old Female Pt c/o b/l hip pain COMPARISON: CT lumbar spine of same day, MRI lumbar spine 10/30/2016 TECHNIQUE: Multiple axial CT images of the pelvis were obtained without contrast. A dose lowering technique was used consistent with the principals of PHILLIP. FINDINGS: There is a 3.5 x 4.0 cm cystic structure arising from the right adnexum. Uterus, urinary bladder and left adnexum are unremarkable. Sigmoid colon demonstrates no focal inflammatory changes. The appendix is not definitely seen. No secondary evidence of acute appendicitis. No adenopathy identified. Soft tissues are unremarkable. Mild subcortical cystic changes and sclerosis of the pubic symphysis without erosive changes. There is transitional lumbosacral anatomy as described on comparison lumbar spine CT of same day. No fracture or dislocation is identified. No significant degenerative changes are seen involving the hips or sacroiliac joints. Mild intervertebral disc space narrowing seen at L4-L5 and L5-S1 with facet arthrosis. IMPRESSION: 1. No acute fracture or dislocation of the pelvis or bilateral hips. No significant degenerative changes. 2. Incidental note is made of transitional lumbosacral anatomy on the right as described on comparison lumbar spine CT of same day. 3. 3.5 x 4.0 cm cystic structure arising from the right adnexum incidentally noted. This could be further evaluated with ultrasound of the pelvis if clinically indicated. The above report was generated using voice recognition software. It may contain grammatical, syntax or spelling errors. Electronically signed by: Ryder Corral M.D. 11/03/2016 5:52 PM Dictated Date/Time: 11/03/2016 5:49 PM
[2016-11-03] MEDS ORDERED: CYCL10TA6 PO (18:13)
[2016-11-03] MEDS ORDERED: OXYC-57 PO (18:13)
[2016-11-03] MEDS ORDERED: NF656 TD (18:13)
[2016-11-03 18:45] VITALS: BP 107/61; PULSE 61; O2SAT 98
[2016-11-03] MEDS ORDERED: PROP120C PO (22:37)
== END 2016-11-03 18:58 | disposition home or self-care (01) ==
LOC: C.EDB 15:25
DX: M54.5 Low back pain (principal); F32.9 Major depressive disorder, single episode, unspecified; Z83.3 Family history of diabetes mellitus; Z82.49 Family history of ischemic heart disease and other diseases of the circulatory system; Z82.0 Family history of epilepsy and other diseases of the nervous system; Z82.3 Family history of stroke; F17.200 Nicotine dependence, unspecified, uncomplicated

== ENCOUNTER → 2017-02-03 | Outpatient (CLI) | payer BC ==
[~2017-02-03] MED LIST changes: -CLON0.5T3 PO; +CMP/10 PO; -DICL50TA3 PO; -ETONMIS VAGRING; -FLX10 PO; +KLN5X PO; -LAMO100T PO; +LAMO1TAB21 PO; -LAMO200T PO; +LAMO200T38 PO; -LINA1CAP PO; +LINA72CA PO; -LISI-729 PO; +LRS10 PO; -METH500T37 PO; +NUVVR VAGRING; +OXYC-164 PO; +OXYC-57 PO; +PROP120C PO; -TOPI1CAP24 PO; +TOPI200T14 PO
== END | disposition home or self-care (01) ==
LOC: C.LABSPEC 12:44
PROVIDERS: ATTEND Physician Assistant
DX: L29.8 Other pruritus (principal)

== ENCOUNTER → 2017-05-23 | Outpatient (CLI) | payer BC ==
[~2017-05-23] MED LIST changes: +BUPR-83 PO; +LAMO200T35 PO; -LAMO200T38 PO; -OXYC-164 PO
[2017-05-23 14:04] LABS: BASO % 0.3 %; BASO ABS # 0.03 K/uL (0-0.2); EOS % 2.1 %; EOS ABS # 0.19 K/uL (0-0.5); HEMATOCRIT 40.1 % (37-47); IG# 0.02 K/uL (0.00-0.02); LYMPH % 31.1 %; LYMPH ABS # 2.83 K/uL (1.2-3.4); MEAN CELL VOLUME 87.4 fL (80-100); MEAN CORPUSCULAR HEMOGLOBIN 28.3 pg (25-34); MEAN CORPUSCULAR HGB CONC 32.4 g/dl (32-36); MEAN PLATELET VOLUME 9.5 fL (7.4-10.4); MONO % 8.2 %; MONO ABS # 0.75 K/uL (0.11-0.59); NEUT % 58.1 %; NEUT ABS # 5.29 K/uL (1.4-6.5); PLATELET COUNT 514 K/uL (130-400); RED CELL DISTRIBUTION WIDTH CV 15.2 % (11.5-14.5); RED CELL DISTRIBUTION WIDTH SD 48.3 fL (36.4-46.3); WHITE BLOOD COUNT 9.11 K/uL (4.8-10.8)
[2017-05-23 14:16] LABS: ALBUMIN 3.7 gm/dl (3.4-5.0); ALT/SGPT 19 U/L (12-78); BLOOD UREA NITROGEN 10 mg/dl (7-18); CALCIUM 9.4 mg/dl (8.5-10.1); CARBON DIOXIDE 23 mmol/L (21-32); CREATININE 0.87 mg/dl (0.60-1.20); GLUCOSE 90 mg/dl (70-99); POTASSIUM 3.9 mmol/L (3.5-5.1); SODIUM 137 mmol/L (136-145)
[2017-05-23 14:24] LABS: T3 FREE 2.36 pg/ml (2.30-4.20)
[2017-05-23 14:27] LABS: ALKALINE PHOSPHATASE 136 U/L (45-117); AST/SGOT 10 U/L (15-37); TOTAL PROTEIN 8.1 gm/dl (6.4-8.2)
== END | disposition home or self-care (01) ==
LOC: C.LAB 11:55
PROVIDERS: ATTEND Physician Assistant Medical
DX: R53.83 Other fatigue (principal); R94.6 Abnormal results of thyroid function studies

== ENCOUNTER → 2017-07-22 | Outpatient (CLI) | payer BC, OTHER ==
[~2017-07-22] MED LIST changes: -CMP/10 PO; -OXYC-57 PO; +PROC10TA5 PO
== END | disposition home or self-care (01) ==
LOC: C.LABBFT 14:47
PROVIDERS: ATTEND Internal Medicine
DX: R39.9 Unspecified symptoms and signs involving the genitourinary system (principal)

== ENCOUNTER → 2017-07-24 | Outpatient (CLI) | payer BC, OTHER ==
--- NOTE | 2017-07-24 14:02 | DIAGNOSTIC IMAGING REPORT ---
KUB HISTORY: R10.9 Pain, flank, [id number] COMPARISON: Chest and abdominal series 10/28/2012. Abdomen and pelvis CT 09/25/2016. FINDINGS: The bowel gas pattern is unremarkable. There are no dilated loops of small bowel to suggest an obstruction. No renal calculi. No ureteral calculi. No pneumoperitoneum or pneumatosis. Of note, the right renal shadow is partially obscured by overlying bowel gas. Prior cholecystectomy. Punctate calcification within the left side the abdomen at the S1 transitional vertebra is likely within the bowel. A few punctate phleboliths noted within the deep pelvis. IMPRESSION: No renal or ureteral stones. Electronically signed by: Alberto Bird M.D. 07/24/2017 2:00 PM Dictated Date/Time: 07/24/2017 1:58 PM
== END | disposition home or self-care (01) ==
LOC: C.RAD1850 13:45
PROVIDERS: ATTEND Physician Assistant Medical
DX: R10.9 Unspecified abdominal pain (principal)

== ENCOUNTER 2020-05-15 20:21 | Observation (INO) ==
[2020-05-15] MEDS ORDERED: HYDROmorphone INJ 1 MG/ML SYRINGE IV STA (20:50)
[2020-05-15] MEDS ORDERED: SODIUM CHLORIDE 0.9% 1000ML 2,000 ML IV ONE (20:50)
[2020-05-15] MEDS ORDERED: ONDANSETRON INJ 2 MG/ML 2 ML VIAL IV STA (20:50)
--- NOTE | 2020-05-15 20:55 | Emergency Department Note ---
Impression & Plan Post-op pain, Abdominal pain, Leukocytosis ED Provider Note NAME: STEPHANY CRISOSTOMO AGE: 35 SEX: F : 1985 ARRIVES VIA: Ambulance INFORMANT: Patient ED PROVIDER(S): Tremaine Campos DO CHIEF COMPLAINT: Severe abdominal pain HPI: Patient is a 35-year-old female who presents ER for severe abdominal pain. Dr. Paulson did a hysterectomy on her today for persistent abdominal pain and endometriosis with bleeding. She was then discharged and she has been having severe diffuse abdominal pain. Feels like a pressure. 10 out of 10. She was brought in by EMS. She was given 150 of fentanyl prehospital. She admits to nausea but no vomiting. Denies any dysuria, urgency, or frequency. No new back pain. She does have chronic back pain. ROS: See above HPI for pertinent positives & negatives. A total of 10 systems reviewed and were otherwise negative. PAST MEDICAL HISTORY:See Below PAST SURGICAL HISTORY:See Below FAMILY HISTORY:See Below SOCIAL HISTORY:See Below HOME MEDICATIONS:See Below ALLERGIES:See Below VITALS:See Below PHYSICAL EXAMINATION: GENERAL: Laying in bed rolling around and screaming holding abdomen EYE EXAM: normal conjunctiva. OROPHARYNX: no exudate, no erythema, lips, buccal mucosa, and tongue normal and mucous membranes are moist NECK: supple, no nuchal rigidity, no adenopathy, non-tender LUNGS: Clear to auscultation. Normal chest wall mechanics HEART: no murmurs, S1 normal and S2 normal ABDOMEN: abdomen soft, diffuse tenderness, normo-active bowel sounds, no masses, no rebound or guarding. UPPER EXTREMITIES: upper extremities are grossly normal. LOWER EXTREMITIES: No pitting edema. NEURO EXAM: Normal sensorium, cranial nerves II-XII grossly intact, normal speech, no gross weakness of arms, no gross weakness of legs. MEDICAL DECISION MAKING: Patient is a 35-year-old female with a past medical history of migraines, hypertension, hypothyroid, endometriosis, chronic pelvic pain who presents ER postop from hysterectomy by Dr. Paulson. IV was established blood work was obtained. I received medical command call from EMS in regards to her. She was having severe pain. Ordered a total of 100 mcg of fentanyl but she was actually given 150 mcg of fentanyl. IV was established blood work was obtained. Upon presentation she was still screaming yelling and calling the nursing staff jason mccord. She eventually calmed down. Labs showed a leukocytosis of 15,000. No significant anemia. BMP with mild hyponatremia. CO2 slightly low at 19. Bilirubin LFTs was unremarkable. Lipase was normal. hCG was negative. CT abdomen pelvis was obtained and was unremarkable. She was observed in the ER for over 4 hours. She continued to have persistent pain. She was evaluated by [facility] [facility]NA[facility] and admitted for observation. She was given Zofran and 2 dose of Dilaudid. Bladder was distended on CT but she was able to void following this about a liter and had no improvement of her symptoms. Observation Status: Indication: abdominal [id number] Patient with no significant family history, was seen first at 2030 hrs and was necessary in order to determine medical stability and avoid unnecessary admission. Upon reevaluation, 4 hours of observation revealed that the patient should be observed overnight by [facility] COMM[employer]ICATIONS MANAGER. Disposition date and time 05/16/2020. Triage Nursing notes reviewed. Limited review of prior medical records performed Vital Signs: reviewed and remarkable for HTN Differential diagnosis: Differential diagnoses includes but is not limited to gastritis, peptic ulcer disease, GERD, gallbladder disease, pancreatitis, small bowel obstruction, acute coronary syndrome, pericarditis, ischemic bowel, irritable bowel disease, irritable bowel syndrome, appendicitis, diverticulitis, malignancy, hernia, urinary tract infection, torsion, /ectopic (if female), perforation, trauma, infectious. ER treatment provided: See below Diagnostics interpreted by me: ECG: none Cardiac Monitoring: An order was placed for continuous cardiac monitoring. The monitor shows a rate of 89 with sinus rhythm. Laboratory studies: As stated above and show below. Imaging studies: CT abdomen pelvis per stat read showed hysterectomy with trace low-density free pelvic fluid. 2.4 cm right ovarian hypodensity as well as a moderate distended urinary bladder. Consultation(s): Discussed with Dr. René Thakkar from [facility] [employer] [facility] who evaluate the patient and will admit the patient for observation Procedures: none Critical Care: None Past Med/Surg History Medical History (Updated 05/16/20 @ 00:24 by Tremaine Campos DO) Asthma Remote hx, no longer uses inhaler. Bilateral sacroiliitis Cervical radiculopathy Endometriosis Per laproscopic biopsy 07/01/2016 Hematologic disease Patient being worked up by [facility] currently for elevated platelets, abnormal IGG levels. Hypertension Is on HCTZ and candesartan for migraines and pedal edema from Lyrica. HTN treated secondarily. Hypothyroidism Medical marijuana use Migraines Mixed anxiety and depressive disorder Obesity Surgical History History of anesthesia reaction has woken up during procedures before "remembers being held down and it was awful" History of carpal tunnel release of both wrists History of cholecystectomy History of colonoscopy (08/15/16) Hematochezia w/u - Non-diagnostic. No pathology noted on biopsies. History of laparoscopy (06/28/16) Endometriosis w/u. Biopsy noted proliferative endometrium consistent with endometriosis. History of left salpingo-oophorectomy History of lithotripsy History of recent maxillofacial surgery "a couple times" for nasal bone fractures. History of removal of calculus of renal pelvis through percutaneous nephrostomy History of removal of cyst right hand S/P tonsillectomy and adenoidectomy Family History (Updated 04/17/20 @ 16:35 by Katina Elizabeth RN) Other No family history of adverse response to anesthesia No significant family history Social History Smoking Status: Current every day smoker Tobacco Type: Cigarettes Cigarettes Per Day: 5-8 a day; Second Hand Exposure: Yes (parents smoked); Hx Alcohol Use: No Hx Substance Use: Yes (medical marijuana) Preferred Language: Albanian Communication Ability: Effective Visual Impairment: No Limitations Hearing Ability: Normal Tool And Die Maker/Designer Required: No Beliefs That Will Affect Care: None marital status: Current Living Situation: Family Current Living Situation Comment: Lives with daughter current occupational status: employed 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 Feels Safe at Home: Yes Assistive Devices: None Allergies Allergies Allergy/AdvReac Type Severity Reaction Status Date / Time morphine Allergy Intermediate MAKES HER Verified 05/15/20 07:56 ANXIOUS tramadol Allergy Intermediate GIVES HER Verified 05/15/20 07:56 [facility] estradiol Allergy Mild "crazy" Verified 05/15/20 07:56 leuprolide Allergy Mild Mental Verified 05/15/20 07:56 complications trazodone Allergy Unknown UNKNOWN Verified 05/15/20 07:56 medroxyprogesterone AdvReac Mild mood Verified 05/15/20 07:56 [From Depo-Provera] changes NSAIDS (Non-Steroidal AdvReac Mild Migraine Verified 05/15/20 07:56 Anti-Inflamma Home Meds Home Medications Medication Instructions Recorded Confirmed dihydroergotamine 1 mg/mL 1 mg SQ Q1H PRN 01/14/19 05/15/20 injection solution nabumetone 500 mg tablet 500 mg PO DAILY PRN tab 01/14/19 05/15/20 prochlorperazine maleate 10 mg 10 mg PO BID PRN 01/14/19 05/15/20 tablet ascorbic acid (vitamin C) [Vitamin 500 mg PO QAM 04/03/20 05/16/20 C] baclofen 20 mg PO BID 04/03/20 05/16/20 cholecalciferol (vitamin D3) 125 mcg PO QAM 04/03/20 05/15/20 [Vitamin D3] multivitamin 1 tab PO QAM 04/03/20 05/15/20 pregabalin 50 mg PO QAM 04/03/20 05/15/20 Previous Rx's Medication Instructions Recorded topiramate 200 mg capsule 200 mg PO QAM #30 ea 01/19/20 sprinkle,extended release 24 hr topiramate 25 mg capsule 25 mg PO QAM #30 ea 01/19/20 sprinkle,extended release 24 hr lamotrigine 150 mg tablet 150 mg PO QAM #30 tab 01/21/20 lamotrigine 200 mg tablet 200 mg PO QPM #30 tab 01/21/20 hydrochlorothiazide 12.5 mg tablet 12.5 mg PO QAM #90 tab 03/20/20 erenumab-aooe 140 mg/mL 140 mg SUBCUT ONCE #1 ml 03/27/20 subcutaneous auto-injector oxycodone 5 mg tablet 5 mg PO DAILY PRN #30 tab 04/04/20 candesartan 8 mg tablet 8 mg PO QAM 30 Days #30 tab 04/28/20 venlafaxine 150 mg 150 mg PO QAM #30 cap 04/28/20 capsule,extended release 24 hr venlafaxine 75 mg capsule,extended 75 mg PO QAM #30 cap 04/28/20 release 24 hr mirtazapine 15 mg tablet 15 mg PO HS #30 tab 05/10/20 oxycodone-acetaminophen [Percocet] 1 tab PO Q4H PRN #20 tab 05/15/20 Results & Data (ED) Vital Signs Vital Signs - 24 hr 05/15/20 19:46 05/15/20 20:26 05/15/20 20:50 Pulse Rate 115 H 89 Pulse Rate from SpO2 Sensor 90 Pulse Rhythm Regular Pulse Strength Normal Respiratory Rate 20 16 20 Respiratory Effort / Characteristics Non-Labored Respiratory Depth Normal Blood Pressure 153/97 H 153/97 H Blood Pressure Mean 115 115 Blood Pressure Position Lying Pulse Oximetry 93 87 L 98 Oxygen Delivery Method Room Air Room Air Sepsis Recent Fever Within 48 Hours No Sepsis New/Unexplained Change in Mental Status No Sepsis Action Taken by Nursing No Action Required 05/15/20 20:56 05/15/20 21:00 05/15/20 21:10 Pulse Rate 100 H 117 H 92 H Pulse Rate from SpO2 Sensor 106 H 111 H 93 H Pulse Rhythm Pulse Strength Respiratory Rate 14 26 H 17 Respiratory Effort / Characteristics Respiratory Depth Blood Pressure Blood Pressure Mean Blood Pressure Position Pulse Oximetry 90 96 97 Oxygen Delivery Method Sepsis Recent Fever Within 48 Hours Sepsis New/Unexplained Change in Mental Status Sepsis Action Taken by Nursing 05/15/20 21:20 05/15/20 21:30 05/15/20 21:40 Pulse Rate 99 H 93 H 118 H Pulse Rate from SpO2 Sensor 97 H 91 H 117 H Pulse Rhythm Pulse Strength Respiratory Rate 23 20 39 H Respiratory Effort / Characteristics Respiratory Depth Blood Pressure Blood Pressure Mean Blood Pressure Position Pulse Oximetry 98 97 99 Oxygen Delivery Method Sepsis Recent Fever Within 48 Hours Sepsis New/Unexplained Change in Mental Status Sepsis Action Taken by Nursing 05/15/20 21:50 05/15/20 22:00 05/15/20 22:16 Pulse Rate 94 H 99 H 111 H Pulse Rate from SpO2 Sensor 97 H 110 H Pulse Rhythm Pulse Strength Respiratory Rate 19 20 22 Respiratory Effort / Characteristics Respiratory Depth Blood Pressure Blood Pressure Mean Blood Pressure Position Pulse Oximetry 93 98 Oxygen Delivery Method Sepsis Recent Fever Within 48 Hours Sepsis New/Unexplained Change in Mental Status Sepsis Action Taken by Nursing 05/15/20 22:19 05/15/20 22:20 05/15/20 22:30 Pulse Rate 103 H 92 H 89 Pulse Rate from SpO2 Sensor 103 H 94 H 95 H Pulse Rhythm Pulse Strength Respiratory Rate 25 H 26 H 13 Respiratory Effort / Characteristics Respiratory Depth Blood Pressure 151/91 H Blood Pressure Mean 111 Blood Pressure Position Pulse Oximetry 98 96 92 Oxygen Delivery Method Sepsis Recent Fever Within 48 Hours Sepsis New/Unexplained Change in Mental Status Sepsis Action Taken by Nursing 05/15/20 22:40 05/15/20 22:50 05/15/20 23:00 Pulse Rate 102 H 95 H 94 H Pulse Rate from SpO2 Sensor 101 H 97 H 95 H Pulse Rhythm Pulse Strength Respiratory Rate 20 15 16 Respiratory Effort / Characteristics Respiratory Depth Blood Pressure Blood Pressure Mean Blood Pressure Position Pulse Oximetry 97 94 96 Oxygen Delivery Method Sepsis Recent Fever Within 48 Hours Sepsis New/Unexplained Change in Mental Status Sepsis Action Taken by Nursing 05/15/20 23:17 05/15/20 23:20 05/15/20 23:30 Pulse Rate 98 H 83 86 Pulse Rate from SpO2 Sensor 95 H 83 87 Pulse Rhythm Pulse Strength Respiratory Rate 26 H 17 20 Respiratory Effort / Characteristics Respiratory Depth Blood Pressure Blood Pressure Mean Blood Pressure Position Pulse Oximetry 98 93 94 Oxygen Delivery Method Sepsis Recent Fever Within 48 Hours Sepsis New/Unexplained Change in Mental Status Sepsis Action Taken by Nursing 05/15/20 23:40 05/15/20 23:50 05/16/20 00:00 Pulse Rate 91 H 89 90 Pulse Rate from SpO2 Sensor 90 89 91 H Pulse Rhythm Pulse Strength Respiratory Rate 24 19 23 Respiratory Effort / Characteristics Respiratory Depth Blood Pressure Blood Pressure Mean Blood Pressure Position Pulse Oximetry 92 91 94 Oxygen Delivery Method Sepsis Recent Fever Within 48 Hours Sepsis New/Unexplained Change in Mental Status Sepsis Action Taken by Nursing Laboratory Data Result diagrams: 05/15/20 20:30 05/15/20 20:30 Lab Results 05/15/20 05/15/20 05/15/20 Range/Units 20:30 20:30 20:30 WBC 15.17 H (4.8-10.8) K/uL RBC 4.41 (4.2-5.4) M/uL Hgb 12.1 (12.0-16.0) g/dL POC Hgb (12.0-16.0) g/dl Hct 37.3 (37-47) % POC Hct (37-47) % MCV 84.6 (80-100) fL MCH 27.4 (25-34) pg MCHC 32.4 (32-36) g/dL RDW Std Deviation 47.7 H (36.4-46.3) fL RDW Coeff of Tato 15.4 H (11.5-14.5) % Plt Count 475 H (130-400) K/uL MPV 9.8 (7.4-10.4) fL Immature Gran % (Auto) 0.1 % Neut % (Auto) 74.9 % Lymph % (Auto) 19.0 % [place] % (Auto) 5.8 % Eos % (Auto) 0.1 % Baso % (Auto) 0.1 % Neut # (Auto) 11.37 H (1.4-6.5) K/uL Lymph # (Auto) 2.88 (1.2-3.4) K/uL [place] # (Auto) 0.88 H (0.11-0.59) K/uL Eos # (Auto) 0.01 (0-0.5) K/uL Baso # (Auto) 0.01 (0-0.2) K/uL Immature Gran # (Auto) 0.02 (0.00-0.02) K/uL POC Sodium (135-144) mmol/L Sodium 135 L (136-145) mmol/L POC Potassium (3.3-5.0) mmol/L Potassium 3.7 (3.5-5.1) mmol/L POC Chloride (101-112) mmol/L Chloride 106 (98-107) mmol/L Carbon Dioxide 19 L (21-32) mmol/L POC Total CO2 (24-31) mmol/L Anion Gap 11.0 (3-11) POC Anion Gap (16-25) mmol/L POC BUN (7-18) mg/dl BUN 6 L (7-18) mg/dl Creatinine 0.92 (0.6-1.2) mg/dl POC Creatinine (0.6-1.3) mg/dl Est Cr Clr Drug Dosing 100.4 ml/min Est GFR ( Amer) 93.5 Est GFR (Non-Af Amer) 80.7 BUN/Creatinine Ratio 6.2 L (10-20) Glucose 110 H (70-99) mg/dl POC Glucose (other) (70-99) mg/dl Calcium 8.9 (8.5-10.1) mg/dl POC Ioniz Calcium Berta (1.12-1.32) mmol/l Total Bilirubin 0.3 (0.2-1) mg/dl AST 14 L (15-37) U/L ALT 23 (12-78) U/L Alkaline Phosphatase 159 H (45-117) U/L Total Protein 7.0 (6.4-8.2) gm/dl Albumin 3.4 (3.4-5.0) gm/dl Globulin 3.6 (2.5-4.0) gm/dl Albumin/Globulin Ratio 0.9 (0.9-2) Lipase 54 L (73-393) U/L HCG, Qual Negative (Negative) 05/15/20 Range/Units 21:11 WBC (4.8-10.8) K/uL RBC (4.2-5.4) M/uL Hgb (12.0-16.0) g/dL POC Hgb 12.2 (12.0-16.0) g/dl Hct (37-47) % POC Hct 36 L (37-47) % MCV (80-100) fL MCH (25-34) pg MCHC (32-36) g/dL RDW Std Deviation (36.4-46.3) fL RDW Coeff of Tato (11.5-14.5) % Plt Count (130-400) K/uL MPV (7.4-10.4) fL Immature Gran % (Auto) % Neut % (Auto) % Lymph % (Auto) % [place] % (Auto) % Eos % (Auto) % Baso % (Auto) % Neut # (Auto) (1.4-6.5) K/uL Lymph # (Auto) (1.2-3.4) K/uL [place] # (Auto) (0.11-0.59) K/uL Eos # (Auto) (0-0.5) K/uL Baso # (Auto) (0-0.2) K/uL Immature Gran # (Auto) (0.00-0.02) K/uL POC Sodium 136 (135-144) mmol/L Sodium (136-145) mmol/L POC Potassium 3.9 (3.3-5.0) mmol/L Potassium (3.5-5.1) mmol/L POC Chloride 103 (101-112) mmol/L Chloride (98-107) mmol/L Carbon Dioxide (21-32) mmol/L POC Total CO2 22 L (24-31) mmol/L Anion Gap (3-11) POC Anion Gap 16.0 (16-25) mmol/L POC BUN 4 L (7-18) mg/dl BUN (7-18) mg/dl Creatinine (0.6-1.2) mg/dl POC Creatinine 0.7 (0.6-1.3) mg/dl Est Cr Clr Drug Dosing ml/min Est GFR ( Amer) Est GFR (Non-Af Amer) BUN/Creatinine Ratio (10-20) Glucose (70-99) mg/dl POC Glucose (other) 102 H (70-99) mg/dl Calcium (8.5-10.1) mg/dl POC Ioniz Calcium Berta 1.21 (1.12-1.32) mmol/l Total Bilirubin (0.2-1) mg/dl AST (15-37) U/L ALT (12-78) U/L Alkaline Phosphatase (45-117) U/L Total Protein (6.4-8.2) gm/dl Albumin (3.4-5.0) gm/dl Globulin (2.5-4.0) gm/dl Albumin/Globulin Ratio (0.9-2) Lipase (73-393) U/L HCG, Qual (Negative) Administered Medications Discontinued Medications Hydromorphone HCl (Hydromorphone Inj 1 Mg/Ml Syringe) 1 mg IV NOW STA Stop: 05/15/20 20:51 Last Admin: 05/15/20 21:12 Dose: 1 mg Documented by: [id number] Hydromorphone HCl (Hydromorphone Inj 0.5 Mg/0.5 Ml Syr) 0.5 mg IV NOW STA Stop: 05/15/20 23:20 Last Admin: 05/16/20 00:02 Dose: 0.5 mg Documented by: [id number] Sodium Chloride (Nss 1000ml) 2,000 mls @ 999 mls/hr IV .Q2H1M ONE Stop: 05/15/20 22:50 Last Admin: 05/15/20 21:11 Dose: 999 mls/hr Documented by: [id number] Ioversol (Ioversol 100ml) 94 ml IV ONCE ONE Stop: 05/15/20 22:06 Last Admin: 05/15/20 22:05 Dose: 94 ml Documented by: [id number] Ondansetron HCl (Ondansetron Inj 2 Mg/Ml 2 Ml Vial) 4 mg IV NOW STA Stop: 05/15/20 20:51 Last Admin: 05/15/20 21:12 Dose: 4 mg Documented by: [id number] Discharge Plan Visit Data Chief Complaint: Abdominal Pain Stated Complaint: ABD PAIN, HYSTERECTOMY ED Provider: Tremaine Campos Discharge Problem: Post-op pain, Abdominal pain, Leukocytosis Forms Stand Alone Forms: [facility] Prescriptions Prescriptions: No Action lamotrigine 150 mg tablet 150 mg PO QAM Qty: 30 RF: 2 lamotrigine [Lamictal] 200 mg tablet 200 mg PO QPM Qty: 30 RF: 2 topiramate 25 mg capsule,sprinkle,ER 24hr 25 mg PO QAM Qty: 30 RF: 5 topiramate 200 mg capsule,sprinkle,ER 24hr 200 mg PO QAM Qty: 30 RF: 5 hydrochlorothiazide 12.5 mg tablet 12.5 mg PO QAM Qty: 90 RF: 1 oxycodone 5 mg tablet 5 mg PO DAILY PRN (Reason: pain) Qty: 30 RF: 0 candesartan 8 mg tablet 8 mg PO QAM 30 Days Qty: 30 RF: 5 venlafaxine [Effexor XR] 75 mg capsule,extended release 24hr 75 mg PO QAM Qty: 30 RF: 0 venlafaxine [Effexor XR] 150 mg capsule,extended release 24hr 150 mg PO QAM Qty: 30 RF: 0 mirtazapine [Remeron] 15 mg tablet 15 mg PO HS Qty: 30 RF: 2 dihydroergotamine [D.H.E.45] 1 mg/mL solution 1 mg SQ Q1H PRN (Reason: Migraine Headache) RF: 0 nabumetone 500 mg tablet 500 mg PO DAILY PRN (Reason: Migraine Headache) RF: 0 prochlorperazine maleate 10 mg tablet 10 mg PO BID PRN (Reason: Nausea) RF: 0 Aimovig Autoinjector 140 mg/mL auto-injector 140 mg subcut ONCE Qty: 1 RF: 5 oxycodone-acetaminophen [Percocet] 5-325 mg Tablet 1 tab PO Q4H PRN (Reason: pain) Qty: 20 RF: 0 baclofen 20 mg tablet 20 mg PO BID RF: 0 pregabalin 25 mg capsule 50 mg PO QAM RF: 0 multivitamin Tablet 1 tab PO QAM RF: 0 ascorbic acid (vitamin C) [Vitamin C] 500 mg Tablet 500 mg PO QAM RF: 0 cholecalciferol (vitamin D3) [Vitamin D3] 125 mcg (5,000 unit) Tablet 125 mcg PO QAM RF: 0 Discharge Problem: Abdominal pain Qualifiers: Abdominal location: unspecified location Qualified Code(s): R10.9 - Unspecified abdominal pain Leukocytosis Qualifiers: Leukocytosis type: unspecified Qualified Code(s): D72.829 - Elevated white blood cell count, unspecified
[2020-05-15 21:08] LABS: Basophils # (auto) 0.01 K/uL (0-0.2); Basophils % (auto) 0.1 %; Eosinophils # (auto) 0.01 K/uL (0-0.5); Eosinophils % (auto) 0.1 %; Hematocrit (blood only) 37.3 % (37-47); Hemoglobin 12.1 g/dL (12.0-16.0); Immature Granulocytes # (auto) 0.02 K/uL (0.00-0.02); Immature Granulocytes % (auto) 0.1 %; Lymphocytes # (auto) 2.88 K/uL (1.2-3.4); Mean Corpuscular Hemoglobin 27.4 pg (25-34); Mean Corpuscular Hgb Conc 32.4 g/dL (32-36); Mean Corpuscular Volume 84.6 fL (80-100); Mean Platelet Volume 9.8 fL (7.4-10.4); Monocytes # (auto) 0.88 K/uL (0.11-0.59); Monocytes % (auto) 5.8 %; Neutrophils # (auto) 11.37 K/uL (1.4-6.5); Neutrophils % (auto) 74.9 %; Platelet Count 475 K/uL (130-400); RDW Coefficient of Variation 15.4 % (11.5-14.5); RDW Standard Deviation 47.7 fL (36.4-46.3); Red Blood Count 4.41 M/uL (4.2-5.4); White Blood Count 15.17 K/uL (4.8-10.8)
[2020-05-15 21:12] LABS: Albumin Level 3.4 gm/dl (3.4-5.0); BUN Creatinine Ratio 6.2 (10-20); Calcium 8.9 mg/dl (8.5-10.1); Creatinine Clr Calc Pharmacy 100.4 ml/min; Est GFR (African American) 93.5; Est GFR (Non-African American) 80.7; Potassium 3.7 mmol/L (3.5-5.1)
[2020-05-15 21:15] LABS: Albumin Globulin Ratio 0.9 (0.9-2); Bilirubin,Total 0.3 mg/dl (0.2-1); Globulin 3.6 gm/dl (2.5-4.0)
[2020-05-15 21:23] LABS: iSTAT Creatinine 0.7 mg/dl (0.6-1.3); iSTAT Hemoglobin 12.2 g/dl (12.0-16.0); iSTAT Ionized Calcium 1.21 mmol/l (1.12-1.32); iSTAT Potassium 3.9 mmol/L (3.3-5.0)
[2020-05-15 21:26] LABS: Pregnancy Test, Serum Negative (Negative)
[2020-05-15] MEDS ORDERED: OPTIRAY 320 100ml IV ONE (22:05)
[2020-05-15] MEDS ORDERED: HYDROmorphone INJ 0.5 MG/0.5 ML SYR IV STA (23:19)
--- NOTE | 2020-05-16 00:45 | OB/GYN Consultation ---
Date of Consultation May 16, 2020 Assessment & Plan (1) Post-op pain: POD1 s/p RATLH-RS, cysto to be observed for postop pain VS and exam are benign, abdomen is soft and appears appropriate for day 1 after laparoscopic procedure. Imaging and labs are reassuring. Pt has hx of chronic pain that she normally takes pain meds at home for, has not taken them in full dosage today, and reported only taking one percocet when she got home today. Given pt's chronic pain, believe she has higher pain med needs for control and pt does note multiple side effects from various types of pain medication. Has received dilaudid in the ER, will give home dose of baclofen now and continue scheduled percocet. Will also order abdominal binder. UA is pending from ER. Will keep NPO overnight and re-evaluate in AM. Ample time given to pt for questions, answered to apparent satisfaction History of Present Illness Reason for Consultation: Postop pain Requesting Physician: Dr. Tremaine Campos History of Present Illness 35 y/o POD1 s/p RATLH, R salpingectomy, cystoscopy for menorrhagia, chronic pelvic pain, and endometriosis presents to the ED w/ complaint of severe abdominal pain at home. Had moderate pain after discharge today but noted that she was trying to get on her bed afterward and moved a specific way which caused her to have severe pain across her abdomen. Since she got home, she had taken one percocet that was prescribed for her postop pain. The pt does have chronic back pain and pelvic pain that she takes baclofen and pregabalin for daily, but did not take her second dose of baclofen today. She does report she takes other medications PRN for pain, but does not typically use these more than 1-2x/wk. Has had multiple surgeries for endometriosis in the past however is unable to tell me what her pain regimen due to hx of multiple concussions. Tolerated PO at home w/o n/v. Has voided multiple times and feels empty. No flatus but is burping. Denies VB. Denies fevers, chills, n/v, BALDERRAMA, CP, SOB. Allergies Allergy/AdvReac Type Severity Reaction Status Date / Time morphine Allergy Intermediate MAKES HER Verified 05/15/20 07:56 ANXIOUS tramadol Allergy Intermediate GIVES HER Verified 05/15/20 07:56 THE SH[facility]ES estradiol Allergy Mild "crazy" Verified 05/15/20 07:56 leuprolide Allergy Mild Mental Verified 05/15/20 07:56 complications trazodone Allergy Unknown UNKNOWN Verified 05/15/20 07:56 medroxyprogesterone AdvReac Mild mood Verified 05/15/20 07:56 [From Depo-Provera] changes NSAIDS (Non-Steroidal AdvReac Mild Migraine Verified 05/15/20 07:56 Anti-Inflamma Home Medications Medication Instructions Recorded Confirmed Type dihydroergotamine 1 mg/mL 1 mg SQ Q1H PRN 01/14/19 05/15/20 History injection solution nabumetone 500 mg tablet 500 mg PO DAILY PRN tab 01/14/19 05/15/20 History prochlorperazine maleate 10 mg 10 mg PO BID PRN 01/14/19 05/15/20 History tablet topiramate 200 mg capsule 200 mg PO QAM #30 ea 01/19/20 05/15/20 Rx sprinkle,extended release 24 hr topiramate 25 mg capsule 25 mg PO QAM #30 ea 01/19/20 05/15/20 Rx sprinkle,extended release 24 hr lamotrigine 150 mg tablet 150 mg PO QAM #30 tab 01/21/20 05/16/20 Rx lamotrigine 200 mg tablet 200 mg PO QPM #30 tab 01/21/20 05/15/20 Rx hydrochlorothiazide 12.5 mg tablet 12.5 mg PO QAM #90 tab 03/20/20 05/15/20 Rx erenumab-aooe 140 mg/mL 140 mg SUBCUT ONCE #1 ml 03/27/20 05/15/20 Rx subcutaneous auto-injector ascorbic acid (vitamin C) [Vitamin 500 mg PO QAM 04/03/20 05/16/20 History C] baclofen 20 mg PO BID 04/03/20 05/16/20 History cholecalciferol (vitamin D3) 125 mcg PO QAM 04/03/20 05/15/20 History [Vitamin D3] multivitamin 1 tab PO QAM 04/03/20 05/15/20 History pregabalin 50 mg PO QAM 04/03/20 05/15/20 History oxycodone 5 mg tablet 5 mg PO DAILY PRN #30 tab 04/04/20 05/15/20 Rx candesartan 8 mg tablet 8 mg PO QAM 30 Days #30 tab 04/28/20 05/16/20 Rx venlafaxine 150 mg 150 mg PO QAM #30 cap 04/28/20 05/15/20 Rx capsule,extended release 24 hr venlafaxine 75 mg capsule,extended 75 mg PO QAM #30 cap 04/28/20 05/15/20 Rx release 24 hr mirtazapine 15 mg tablet 15 mg PO HS #30 tab 05/10/20 05/16/20 Rx oxycodone-acetaminophen [Percocet] 1 tab PO Q4H PRN #20 tab 05/15/20 05/15/20 Rx Patient History Medical History Asthma Remote hx, no longer uses inhaler. Bilateral sacroiliitis Cervical radiculopathy Endometriosis Per laproscopic biopsy 07/01/2016 Hematologic disease Patient being worked up by [facility] currently for elevated platelets, abnormal IGG levels. Hypertension Is on HCTZ and candesartan for migraines and pedal edema from Lyrica. HTN treated secondarily. Hypothyroidism Medical marijuana use Migraines Mixed anxiety and depressive disorder Obesity Surgical History History of anesthesia reaction has woken up during procedures before "remembers being held down and it was awful" History of carpal tunnel release of both wrists History of cholecystectomy History of colonoscopy (08/15/16) Hematochezia w/u - Non-diagnostic. No pathology noted on biopsies. History of laparoscopy (06/28/16) Endometriosis w/u. Biopsy noted proliferative endometrium consistent with endometriosis. History of left salpingo-oophorectomy History of lithotripsy History of recent maxillofacial surgery "a couple times" for nasal bone fractures. History of removal of calculus of renal pelvis through percutaneous nephrostomy History of removal of cyst right hand S/P laparoscopic hysterectomy S/P tonsillectomy and adenoidectomy Family History Other No family history of adverse response to anesthesia No significant family history Social History Smoking Status: Current every day smoker Tobacco Type: Cigarettes Cigarettes Per Day: 5-8 a day; Second Hand Exposure: Yes (parents smoked); Hx Alcohol Use: No Hx Substance Use: Yes (medical marijuana) Preferred Language: Congolese Communication Ability: Effective Visual Impairment: No Limitations Hearing Ability: Normal Manager Summer Required: No Beliefs That Will Affect Care: None marital status: Current Living Situation: Family Current Living Situation Comment: Lives with daughter current occupational status: employed 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 Feels Safe at Home: Yes Assistive Devices: None Review of Systems Review of Systems: All systems reviewed & are unremarkable except as noted in HPI & below Physical Exam Constitutional: WD/WN, vitals as above Respiratory: normal respiratory effort; no respiratory distress and no labored breathing Gastrointestinal (Abdomen): Inspection/Auscultation: abdomen normal to inspection and + abdominal surgical incision (c/d/i x 4 w/ bandaids replaced); abdomen not distended Percussion/Palpation: + abdomen tender (diffusely tender) and abdomen soft; no guarding, abdomen not rigid and no hernia Genitourinary: exam deferred Results & Data ([facility]) Vital Signs (Past 12 Hours) Vital Signs Pulse Resp BP Pulse Ox 05/16/20 00:00 90 23 94 05/15/20 23:50 89 19 91 05/15/20 23:40 91 H 24 92 05/15/20 23:30 86 20 94 05/15/20 23:20 83 17 93 05/15/20 23:17 98 H 26 H 98 05/15/20 23:00 94 H 16 96 05/15/20 22:50 95 H 15 94 05/15/20 22:40 102 H 20 97 05/15/20 22:30 89 13 92 05/15/20 22:20 92 H 26 H 96 05/15/20 22:19 103 H 25 H 151/91 H 98 05/15/20 22:16 111 H 22 98 05/15/20 22:00 99 H 20 05/15/20 21:50 94 H 19 93 05/15/20 21:40 118 H 39 H 99 05/15/20 21:30 93 H 20 97 05/15/20 21:20 99 H 23 98 05/15/20 21:10 92 H 17 97 05/15/20 21:00 117 H 26 H 96 05/15/20 20:56 100 H 14 90 05/15/20 20:50 20 98 05/15/20 20:26 89 16 153/97 H 87 L 05/15/20 19:46 115 H 20 153/97 H 93 Laboratory Results 05/15/20 05/15/20 05/15/20 Range/Units 23:20 21:11 20:30 WBC (4.8-10.8) K/uL RBC (4.2-5.4) M/uL Hgb (12.0-16.0) g/dL POC Hgb 12.2 (12.0-16.0) g/dl Hct (37-47) % POC Hct 36 L (37-47) % MCV (80-100) fL MCH (25-34) pg MCHC (32-36) g/dL RDW Std Deviation (36.4-46.3) fL RDW Coeff of Tato (11.5-14.5) % Plt Count (130-400) K/uL MPV (7.4-10.4) fL Immature Gran % (Auto) % Neut % (Auto) % Lymph % (Auto) % Morgan % (Auto) % Eos % (Auto) % Baso % (Auto) % Neut # (Auto) (1.4-6.5) K/uL Lymph # (Auto) (1.2-3.4) K/uL Morgan # (Auto) (0.11-0.59) K/uL Eos # (Auto) (0-0.5) K/uL Baso # (Auto) (0-0.2) K/uL Immature Gran # (Auto) (0.00-0.02) K/uL POC Sodium 136 (135-144) mmol/L Sodium (136-145) mmol/L POC Potassium 3.9 (3.3-5.0) mmol/L Potassium (3.5-5.1) mmol/L POC Chloride 103 (101-112) mmol/L Chloride (98-107) mmol/L Carbon Dioxide (21-32) mmol/L POC Total CO2 22 L (24-31) mmol/L Anion Gap (3-11) POC Anion Gap 16.0 (16-25) mmol/L POC BUN 4 L (7-18) mg/dl BUN (7-18) mg/dl Creatinine (0.6-1.2) mg/dl POC Creatinine 0.7 (0.6-1.3) mg/dl Est Cr Clr Drug Dosing ml/min Est GFR ( Amer) Est GFR (Non-Af Amer) BUN/Creatinine Ratio (10-20) Glucose (70-99) mg/dl POC Glucose (other) 102 H (70-99) mg/dl Calcium (8.5-10.1) mg/dl POC Ioniz Calcium Berta 1.21 (1.12-1.32) mmol/l Total Bilirubin (0.2-1) mg/dl AST (15-37) U/L ALT (12-78) U/L Alkaline Phosphatase (45-117) U/L Total Protein (6.4-8.2) gm/dl Albumin (3.4-5.0) gm/dl Globulin (2.5-4.0) gm/dl Albumin/Globulin Ratio (0.9-2) Lipase (73-393) U/L HCG, Qual Negative (Negative) Urine Color Pending Urine Appearance Pending Urine pH Pending Ur Specific [place] Pending Urine Protein Pending Urine Glucose (UA) Pending Urine Ketones Pending Urine Blood Pending Urine Nitrite Pending Urine Bilirubin Pending Urine Urobilinogen Pending Ur Leukocyte Esterase Pending 05/15/20 05/15/20 Range/Units 20:30 20:30 WBC 15.17 H (4.8-10.8) K/uL RBC 4.41 (4.2-5.4) M/uL Hgb 12.1 (12.0-16.0) g/dL POC Hgb (12.0-16.0) g/dl Hct 37.3 (37-47) % POC Hct (37-47) % MCV 84.6 (80-100) fL MCH 27.4 (25-34) pg MCHC 32.4 (32-36) g/dL RDW Std Deviation 47.7 H (36.4-46.3) fL RDW Coeff of Tato 15.4 H (11.5-14.5) % Plt Count 475 H (130-400) K/uL MPV 9.8 (7.4-10.4) fL Immature Gran % (Auto) 0.1 % Neut % (Auto) 74.9 % Lymph % (Auto) 19.0 % Morgan % (Auto) 5.8 % Eos % (Auto) 0.1 % Baso % (Auto) 0.1 % Neut # (Auto) 11.37 H (1.4-6.5) K/uL Lymph # (Auto) 2.88 (1.2-3.4) K/uL Morgan # (Auto) 0.88 H (0.11-0.59) K/uL Eos # (Auto) 0.01 (0-0.5) K/uL Baso # (Auto) 0.01 (0-0.2) K/uL Immature Gran # (Auto) 0.02 (0.00-0.02) K/uL POC Sodium (135-144) mmol/L Sodium 135 L (136-145) mmol/L POC Potassium (3.3-5.0) mmol/L Potassium 3.7 (3.5-5.1) mmol/L POC Chloride (101-112) mmol/L Chloride 106 (98-107) mmol/L Carbon Dioxide 19 L (21-32) mmol/L POC Total CO2 (24-31) mmol/L Anion Gap 11.0 (3-11) POC Anion Gap (16-25) mmol/L POC BUN (7-18) mg/dl BUN 6 L (7-18) mg/dl Creatinine 0.92 (0.6-1.2) mg/dl POC Creatinine (0.6-1.3) mg/dl Est Cr Clr Drug Dosing 100.4 ml/min Est GFR ( Amer) 93.5 Est GFR (Non-Af Amer) 80.7 BUN/Creatinine Ratio 6.2 L (10-20) Glucose 110 H (70-99) mg/dl POC Glucose (other) (70-99) mg/dl Calcium 8.9 (8.5-10.1) mg/dl POC Ioniz Calcium Berta (1.12-1.32) mmol/l Total Bilirubin 0.3 (0.2-1) mg/dl AST 14 L (15-37) U/L ALT 23 (12-78) U/L Alkaline Phosphatase 159 H (45-117) U/L Total Protein 7.0 (6.4-8.2) gm/dl Albumin 3.4 (3.4-5.0) gm/dl Globulin 3.6 (2.5-4.0) gm/dl Albumin/Globulin Ratio 0.9 (0.9-2) Lipase 54 L (73-393) U/L HCG, Qual (Negative) Urine Color Urine Appearance Urine pH Ur Specific [place] Urine Protein Urine Glucose (UA) Urine Ketones Urine Blood Urine Nitrite Urine Bilirubin Urine Urobilinogen Ur Leukocyte Esterase Diagnostic Findings Stat rad CT A/P w/ contrast showed evidence of hysterectomy, trace low-density free pelvic fluic could be normal post-op finding. No hematoma. No loculated abscess. Likely functional cyst. moderately distended bladder, no hydro. No bowel obstruction, normal appendix. Likely cyst in lower pole of left kidney PG Care Time/CCT Total # of Minutes Spent Total Time Spent with Patient: Total time spent is greater than 50% in coordination of care (as documented) at patient's floor/unit and/or counseling patient: Coding Level of Care Code 40993 Office/OBS Consult Lvl 3 Diagnoses Post-op pain G89.18
[2020-05-16 00:54] LABS: Appearance Urine Clear (Clear); Bilirubin Urine Negative (Negative); Blood Urine 2+ (Negative); Color Urine Dark Yellow; Glucose Urine UA Negative (Negative); Ketones Urine Negative (Negative); Leukocyte Esterase Urine Negative (Negative); Nitrite Urine Positive (Negative); Protein Urine Negative (Negative); Specific Gravity Urine 1.014 (1.000-1.030); Urobilinogen Urine Negative (Negative); pH Urine 7.5 (4.5-7.5)
[2020-05-16 01:17] LABS: Bacteria Urine Negative (Negative); WBC Urine 0-5 /hpf (0-5)
[2020-05-16] MEDS ORDERED: LACTATED RINGER'S 1,000 ML IV SCH (01:59)
[2020-05-16] MEDS: BACLOFEN 20 MG TAB PO SCH ×2 (02:22→09:00)
[2020-05-16] MEDS: oxyCODONE/ACETAMINOPHEN 5mg/325mg TAB PO PRN ×3 (02:23→12:54)
--- NOTE | 2020-05-16 06:58 | Gynecologic Progress Note ---
Date of Service May 16, 2020 Assessment & Plan (1) Post-op pain: POD1 s/p RATLH-BS, cysto, pain improved Pt appears much more comfortable this AM and was able to sleep, is reporting that she also feels much better. VSS, exam continues to be benign. Meeting all postop milestones. Will have breakfast and may be discharged home if tolerating. Discussed that she will continue her home pain regimen and percocet as prescribed by Dr. Paulson, no further prescriptions indicated at this time. Ample time given for questions, answered to her satisfaction Admission and Anticipated Discharge Date Admission Date: May 16, 2020 Subjective Able to sleep overnight, felt better after receiving her home baclofen and percocet and feeling more relaxed outside of the ER. Did not require any further dilaudid after the ER. Notes pain is much better this AM. Continuing to void spontaneously and feels empty, passing flatus. Denies VB even when going to the bathroom. Denies fevers, chills, n/v, BALDERRAMA, CP, SOB. Physical Exam Constitutional: WD/WN, vitals as above Respiratory: normal respiratory effort; no respiratory distress and no labored breathing Gastrointestinal (Abdomen): Inspection/Auscultation: abdomen normal to inspection and + abdominal surgical incision (c/d/i x 4 w/ bandaids replaced); abdomen not distended Percussion/Palpation: + abdomen tender (moderately ten erick, improved from last evening) and abdomen soft; no guarding, abdomen not rigid and no hernia Psychiatric: A+Ox3, euthymic affect Results & Data ([facility]) Vital Signs (Past 12 Hours) Vital Signs Temp Pulse Pulse Resp BP BP Pulse Ox 05/16/20 05:00 98.4 F 77 18 05/16/20 01:50 99.0 F 78 21 107/69 94 05/16/20 01:30 102/54 L 05/16/20 01:20 83 20 90 05/16/20 01:10 77 19 91 05/16/20 01:00 82 21 91 05/16/20 00:50 81 21 92 05/16/20 00:40 85 21 91 05/16/20 00:30 93 H 16 92 05/16/20 00:20 99 H 23 91 05/16/20 00:10 92 H 21 97 05/16/20 00:00 90 23 94 03/08/21 23:50 89 19 91 05/15/20 23:40 91 H 24 92 05/15/20 23:30 86 20 94 05/15/20 23:20 83 17 93 05/15/20 23:17 98 H 26 H 98 05/15/20 23:00 94 H 16 96 05/15/20 22:50 95 H 15 94 05/15/20 22:40 102 H 20 97 05/15/20 22:30 89 13 92 05/15/20 22:20 92 H 26 H 96 05/15/20 22:19 103 H 25 H 151/91 H 98 05/15/20 22:16 111 H 22 98 05/15/20 22:00 99 H 20 05/15/20 21:50 94 H 19 93 05/15/20 21:40 118 H 39 H 99 05/15/20 21:30 93 H 20 97 05/15/20 21:20 99 H 23 98 05/15/20 21:10 92 H 17 97 05/15/20 21:00 117 H 26 H 96 05/15/20 20:56 100 H 14 90 05/15/20 20:50 20 98 05/15/20 20:26 89 16 153/97 H 87 L 05/15/20 19:46 115 H 20 153/97 H 93 PG Care Time/CCT Total # of Minutes Spent Total Time Spent with Patient: Total time spent is greater than 50% in coordination of care (as documented) at patient's floor/unit and/or counseling patient: Coding Level of Care Code 20439 Subseq Hosp Care Lvl 1 Diagnoses Post-op pain G89.18
--- NOTE | 2020-05-16 07:40 | CT Scan Report ---
ABDOMEN AND PELVIS CT WITH IV CONTRAST CT DOSE: 1509.56 mGy.cm HISTORY: severe generalized abdominal pain s/p hysterectomy. TECHNIQUE: Multiaxial CT images of the abdomen and pelvis were performed following the use of intrave nous contrast. A dose lowering technique was utilized adhering to the principles of ALARA. COMPARISON STUDY: Abdomen and pelvis CT 04/03/2020. FINDINGS: Stable 4 mm nodule within the left lower lobe on image 53. Scattered areas of subcutaneous gas within the abdominal wall and mild thickening at the umbilicus suggesting recent postoperative ch anna. A few tiny foci of extra peritoneal gas within the left lower quadrant which also favors postop erative changes consistent with recent hysterectomy. No fractures within the visualized osseous struc tures. Cholecystectomy. No hepatic or splenic masses. The adrenal glands, pancreas, and kidneys are w ithin normal limits. No hydronephrosis. No retroperitoneal lymphadenopathy. Normal bladder. Trace pel shey free fluid. Mild thickening at the vaginal cuff is expected status post hysterectomy. No bowel wa ll thickening or obstruction. Normal appendix. A 4 mm hypodense lesion within the lower pole the left kidney is technically too small to characterize. A 2.4 cm hypodensity within the right ovary consist ent with a cyst. IMPRESSION: 1. Status post hysterectomy with expected postoperative changes as described above. 2. Prior cholecystectomy. 3. No bowel wall thickening or obstruction. 4. Stable 4 mm nodule within the left lower lobe. ACT 112: Negative or not required by law. Electronically signed by: Alberto Bird M.D. 05/16/2020 7:39 AM
--- NOTE | 2020-05-16 08:19 | Communication Note ---
Date of Service: May 16, 2020 Came in to check on patient and to express empathy for her readmission for pain control. She was lying in bed and resting, seemed sedated but did respond. Ap ologized for her course thus far. I had seen in her in holding area yesterday pm and she was sure she wanted to go home. I told her that my partner had told me her labs and imaging were ok and that she was going home this morning so I figured I would stop by. She denied questions for me at this time but as I mentioned she is fairly groggy. Have spoken to her nurse to let pt know i stopped by and can call me in office with any concerns. Patient aware I will check in with her tomorrow as well.
[2020-05-16] MEDS ORDERED: lamoTRIgine 100 MG TAB PO SCH ×2 (09:00→21:00)
[2020-05-16] MEDS ORDERED: hydroCHLOROthiazide 25 MG TAB PO SCH (09:00)
[2020-05-16] MEDS ORDERED: VENLAFAXINE HCL XR 150 MG CAPXR PO SCH (09:00)
[2020-05-16] MEDS ORDERED: CHOLECALCIFEROL 1,000 UNITS 25 MCG TAB PO SCH (09:00)
[2020-05-16] MEDS ORDERED: VENLAFAXINE HCL XR 75 MG CAPXR PO SCH (09:00)
[2020-05-16] MEDS ORDERED: PREGABALIN 50 MG CAP PO SCH (09:00)
[2020-05-16] MEDS ORDERED: MIRTAZAPINE TAB 15 MG TAB PO SCH (21:00)
--- NOTE | 2020-05-17 08:19 | Discharge Summary ---
Date of Service May 17, 2020 Admission HPI Per Admitting Provider 35 y/o POD1 s/p RATLH, R salpingectomy, cystoscopy for menorrhagia, chronic pelvic pain, and endometriosis presents to the ED w/ complaint of severe abdominal pain at home. Had moderate pain after discharge today but noted that she was trying to get on her bed afterward and moved a specific way which caused her to have severe pain across her abdomen. Since she got home, she had taken one percocet that was prescribed for her postop pain. The pt does have chronic back pain and pelvic pain that she takes baclofen and pregabalin for daily, but did not take her second dose of baclofen today. She does report she takes other medications PRN for pain, but does not typically use these more than 1-2x/wk. Has had multiple surgeries for endometriosis in the past however is unable to tell me what her pain regimen due to hx of multiple concussions. Tolerated PO at home w/o n/v. Has voided multiple times and feels empty. No flatus but is burping. Denies VB. Denies fevers, chills, n/v, BALDERRAMA, CP, SOB. Admission Exam (Per Admitting) Constitutional WD/WN, vitals as above Respiratory normal respiratory effort; no respiratory distress and no labored breathing Gastrointestinal (Abdomen) Inspection/Auscultation: abdomen normal to inspection and + abdominal surgical incision (c/d/i x 4 w/ bandaids replaced); abdomen not distended Percussion/Palpation: + abdomen tender (diffusely tender) and abdomen soft; no guarding, abdomen not rigid and no hernia Psychiatric A+Ox3, euthymic affect Discharge Data Consultations 05/15/20 23:32 ED Decision to Admit Stat Hospital Course (1) Post-op pain: Pt appears much more comfortable morning of discharge after receiving home pain regimen and additional postop percocet and was able to sleep, is reporting that she also feels much better. VSS, exam continues to be benign. Meeting all postop milestones. Tolerated breakfast and was stable for discharge Discussed that she will continue her home pain regimen and percocet as prescribed by Dr. Paulson, no further prescriptions indicated at this time. Ample time given for questions, answered to her satisfaction Coding Level of Care Code 12218 OBS Care - Discharge Diagnoses Post-op pain G89.18
== END 2020-05-16 13:10 | disposition home or self-care (01) ==
LOC: ED 20:21 → 4S2 20:21

== ENCOUNTER 2022-06-22 12:42 | Observation (INO) ==
[2022-06-22] MEDS ORDERED: LORazepam 2 MG/1 ML VIAL IV STA ×2 (13:46→15:18)
[2022-06-22] MEDS ORDERED: SODIUM CHLORIDE 0.9% 1000ML 1,000 ML IV ONE (13:48)
--- NOTE | 2022-06-22 14:14 | Emergency Department Note ---
Impression & Plan Abnormal involuntary movement ED Provider Note Provider: Luca Brush MD DATE OF SERVICE: 06/22/2022 CHIEF COMPLAINT: Involuntary movements HISTORY OF PRESENT ILLNESS: Patient is a 37-year-old female history of recent COVID (she reports about 3 weeks ago), hypothyroidism, hypertension, anx iety/mood disorder/depression presenting here today reporting since yesterday afternoon when having a telehealth appointment with her psychiatric provider began develop involuntary spasms and movements of her legs. States this expanded throughout the evening and overnight to include her upper body and that she continuously is moving. Not able to sleep much at all. States some diffuse body aches. Ate and drank only a little today. Did not take her Concerta but took her other medications. No falls reported. Thought it might be some strain and had a massage today but symptoms continued. Denies recent medication change. Did just before lunch have a little bit of medical marijuana but this did not affect things. Denies other drug use or stimulant use. No history of similar reported. Does report she had a concussion in April. Can use NSAIDs or Tylenol or anything to help with symptoms otherwise. Denies recent trauma. PAST MEDICAL HISTORY: As noted above MEDICATIONS: Reviewed home medications denies recent change SOCIAL HISTORY: Smoker PHYSICAL EXAM: GENERAL: alert laying on the stretcher flat movements of both the arms and legs as well as the pelvis. Head: normocephalic and atraumatic EYES: No discharge or icterus. PERRL, EOMI. NECK: Trachea midline. Supple. ENT: Mucous membranes pink and moist. LUNGS: Airway patent. No retractions or tachypnea. HEART: Regular rate and rhythm. No chest wall tenderness ABDOMEN: Soft and non-tender, without guarding or rebound. SKIN: Acyanotic, warm, dry, without rashes EXTREMITIES: Without swelling, tenderness or deformity NEUROLOGICAL: No focal deficits moving all extremities. No aphasia, facial droop, or slurred speech. Intact gross sensation in all 4 extremities. Has generalized movements of the arms and legs EK bpm normal sinus rhythm. No PVC or PAC. No acute ST segment elevation or depression with QTc of 447. CONTINUOUS CARDIAC MONITORING: was ordered and showed a heart rate of 80s-100s bpm in normal sinus rhythm to sinus tachycardia Patient's laboratory studies and imaging reviewed. Differential includes medication reaction, chorea, rhabdomyolysis, electrolyte abnormality, neurological complication, psychiatric issue, among others were considered. IMPRESSION/MEDICAL DECISION MAKING: Reviewed recent medical record including psychiatric visit yesterday when symptoms started. Symptoms are very diffuse and not seem seizure-like. They are not tics or clonic in nature. Almost a chorea like state. No loss of consciousness or AMS. Question if she is developed some rhabdomyolysis. Reviewed records and has had multiple head imaging including last week. Not really focal with her exam. Doubt CVA or meningitis. Do not feel additional imaging at this time would be beneficial. No recent trauma. Reviewed home medications with pharmacist regarding possible dystonic reactions. Question if one of them could be related. Given some IV Benadryl. Reviewing medications do not see any medications that would cause dystonia. Given some Ativan to see if this would help with symptoms. Blood work here with slight leukocytosis but no fever. No anemia. Some thrombocytosis similar to previous. Has had a lot of borderline white blood cell count similar to today based on prior review. No severe electrolyte abnormalities. Evidence of renal dysfunction. Alkaline phosphatase slightly low but no evidence of hepatitis. No evidence of rhabdomyolysis. Reassessment the patient states that the Ativan helped some but the Benadryl seems like a step backwards. Again unsure how much of this is nonorganic in nature but wish to prevent significant injury from her movements at this time. Does not seem consistent with seizure. Was able with assistance to make it to the bathroom provide urine sample. Urinalysis reassuring. Given some additional Ativan for affect. Monitored for several hours with continued somnolence and fatigue difficult to arouse. Grandmother at bedside concerned regarding recurrence of symptoms and her fatigue at this point. Not requiring intubation or airway management at this point and is arousable with painful stimuli. Some component of this may be more psychiatric in nature or possibly from her psychotropic medicines some other contaminant of the "medical marijuana" but at this point given the significant fatigue after hours of monitoring with intermittent continued issues, discussed with the hospitalist for further observation. DIAGNOSIS: Involuntary movements DISPOSITION: Hospitalist will evaluate Patient was agreeable with this plan. Past Med/Surg History Medical History Anxiety Asthma Bilateral sacroiliitis Cervical radiculopathy Depression Endometriosis Hematologic disease Hypertension Hypothyroidism Medical marijuana use Migraines Mixed anxiety and depressive disorder Obesity Occipital neuralgia Solitary pulmonary nodule (10/05/16) Thrombocytosis Surgical History History of anesthesia reaction History of carpal tunnel release of both wrists History of cholecystectomy History of colonoscopy (08/15/16) History of laparoscopy (06/28/16) History of left salpingo-oophorectomy History of lithotripsy History of recent maxillofacial surgery History of removal of calculus of renal pelvis through percutaneous nephrostomy History of removal of cyst S/P laparoscopic hysterectomy S/P tonsillectomy and adenoidectomy Family History Grandmother No problems noted. Grandmother (Maternal) Breast cancer Grandmother (Paternal) Breast cancer Sister Cancer Mother Clotting disorder Hypertension Stroke Father Hypertension Other Heart disease No family history of adverse response to anesthesia No significant family history Social History Smoking Status: Current every day smoker Tobacco Type: Cigarettes Cigarettes Per Day: 5-7 daily; Second Hand Exposure: Yes (parents smoked); Hx Alcohol Use: No Hx Substance Use: No (only Medical marijuana<uses lotion) Preferred Language: Sinhala Communication Ability: Effective Visual Impairment: No Limitations Hearing Ability: Normal Knitting Machine Operator Required: No Beliefs That Will Affect Care: None marital status: Current Living Situation: Other Current Living Situation Comment: Pt reports she lives at home with her 13 year old daughter current occupational status: employed 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 Feels Safe at Home: Yes during the past year weight has: remained stable Assistive Devices: None Allergies Allergies Allergy/AdvReac Type Severity Reaction Status Date / Time galcanezumab-gnlm Allergy Mild Site Verified 06/22/22 15:17 [From Emgality Pen] reaction trazodone Allergy Unknown UNKNOWN Verified 06/22/22 15:17 estradiol AdvReac Intermediate "crazy" Verified 06/22/22 15:17 leuprolide AdvReac Intermediate Mental Verified 06/22/22 15:17 complications medroxyprogesterone AdvReac Intermediate mood Verified 06/22/22 15:17 [From Depo-Provera] changes morphine AdvReac Intermediate MAKES HER Verified 06/22/22 15:17 ANXIOUS NSAIDS (Non-Steroidal AdvReac Intermediate Migraine Verified 06/22/22 15:17 Anti-Inflamma tramadol AdvReac Intermediate GIVES HER Verified 06/22/22 15:17 THE [employer] Home Meds Home Medications Medication Instructions Recorded Confirmed ascorbic acid (vitamin C) 500 mg 500 mg PO QAM 04/03/20 06/22/22 tablet (Vitamin C) cholecalciferol (vitamin D3) 125 125 mcg PO QAM 04/03/20 06/22/22 mcg (5,000 unit) tablet (Vitamin D3) Lactobacillus acidophilus 10 10,000 mmu cells PO QAM 05/20/21 06/22/22 billion cell capsule (Probiotic) cyanocobalamin (vitamin B-12) 1,000 mcg PO DAILY 09/25/21 06/22/22 1,000 mcg capsule dihydroergotamine 1 mg/mL 1 mg subcut Q1H PRN Migraine 05/05/22 06/22/22 injection solution Headache pantoprazole 40 mg tablet,delayed 40 mg PO DAILY 05/05/22 06/22/22 release tizanidine 4 mg tablet 4 mg PO BID 05/16/22 06/22/22 clindamycin phosphate 1 % lotion 1 applic topical DAILY PRN SKIN 06/22/22 IRRITATION NEEDED riboflavin (vitamin B2) 400 mg 400 mg PO DAILY 06/22/22 06/22/22 tablet topiramate 25 mg tablet See Rx Instructions .Route .COMPLEX 06/22/22 06/22/22 Previous Rx's Medication Instructions Recorded onabotulinumtoxinA 200 unit See Rx Instructions IM .COMPLEX #1 01/24/22 solution for injection (Botox) ea candesartan 8 mg tablet (Atacand) 8 mg PO QAM #30 tabs 02/04/22 prochlorperazine maleate 10 mg 10 mg PO BID PRN Nausea #60 tabs 02/13/22 tablet baclofen 20 mg tablet 20 mg PO TID #90 tabs 02/27/22 oxycodone 5 mg tablet 5 mg PO Q6H PRN pain #30 tabs 04/19/22 albuterol sulfate 90 mcg/actuation 2 inh inhalation QID PRN shortness 05/01/22 aerosol inhaler of breath or wheezing #8.5 grams eptinezumab-jjmr 100 mg/mL 300 mg (3 mL) IV .COMPLEX #1 mL 05/13/22 intravenous solution (Vyepti) spironolactone 25 mg tablet 50 mg PO DAILY 30 days #60 tabs 05/24/22 nabumetone 500 mg tablet 500 mg PO DAILY PRN Migraine 06/14/22 Headache #30 tabs rimegepant 75 mg disintegrating 75 mg PO Q OTHER DAY #15 tabs 06/14/22 tablet (Nurtec ODT) benzonatate 100 mg capsule 200 mg PO TID PRN cough 10 days 06/18/22 #60 caps lamotrigine 150 mg tablet 150 mg PO QAM #30 tabs 06/21/22 lamotrigine 200 mg tablet 200 mg PO HS 30 days #30 tabs 06/21/22 (Lamictal) mirtazapine 15 mg tablet (Remeron) 15 mg PO HS #30 tabs 06/21/22 venlafaxine 150 mg 150 mg PO QAM #30 caps 06/21/22 capsule,extended release 24 hr (Effexor XR) venlafaxine 75 mg capsule,extended 75 mg PO QAM #30 caps 06/21/22 release 24 hr (Effexor XR) Results & Data (ED) Vital Signs Vital Signs - 24 hr 06/22/22 12:46 06/22/22 16:16 06/22/22 18:30 Pulse Rate 118 H 79 68 Pulse Rate from SpO2 Sensor 68 Respiratory Rate 18 21 Blood Pressure 160/98 H Blood Pressure Mean 118 Pulse Oximetry 97 91 Oxygen Delivery Method Room Air Sepsis Recent Fever Within 48 Hours No Sepsis New/Unexplained Change in Mental Status No Sepsis Action Taken by Nursing No Action Required Laboratory Data 06/22/22 13:58 06/22/22 13:58 Lab Results 06/22/22 06/22/22 06/22/22 Range/Units 13:58 13:58 13:58 WBC 12.99 H (4.8-10.8) K/ul RBC 4.32 (4.20-5.40) M/uL Hgb 13.5 (12.0-16.0) g/dl Hct 39.6 (37.0-47.0) % MCV 91.7 (80.0-100.0) fL MCH 31.3 (25.0-34.0) pg MCHC 34.1 (32.0-36.0) g/dL RDW Std Deviation 42.6 (36.4-46.3) fL RDW Coeff of Tato 12.8 (11.5-14.5) % Plt Count 455 H (130-400) K/uL MPV 8.7 L (9.4-12.4) fL Immature Gran % (Auto) 0.4 % Neut % (Auto) 66.5 % Lymph % (Auto) 24.8 % [place] % (Auto) 5.9 % Eos % (Auto) 1.9 % Baso % (Auto) 0.5 % Neut # (Auto) 8.64 H (1.40-6.50) K/uL Lymph # (Auto) 3.22 (1.2-3.4) K/uL [place] # (Auto) 0.77 H (0.11-0.59) K/uL Eos # (Auto) 0.25 (0-0.50) K/uL Baso # (Auto) 0.06 (0-0.2) K/uL Immature Gran # (Auto) 0.05 (0.01-0.20) K/uL Sodium 135 L (136-145) mmol/L Potassium 4.7 (3.5-5.1) mmol/L Chloride 106 (98-107) mmol/L Carbon Dioxide 20 L (21-32) mmol/L Anion Gap 9 (3-11) BUN 12 (6-23) mg/dl Creatinine 0.93 (0.6-1.2) mg/dl Est Cr Clr Drug Dosing 94.1 ml/min Est GFR ( Amer) 91.0 ml/min Est GFR (Non-Af Amer) 78.5 ml/min BUN/Creatinine Ratio 12.9 (10-20) Glucose 78 (70-99(Fasting)) mg/dl Calcium 9.0 (8.6-10.3) mg/dl Total Bilirubin 0.3 (0.2-1.0) mg/dl AST 25 (13-39) U/L ALT 20 (7-52) U/L Alkaline Phosphatase 140 H (34-104) U/L Total Creatine Kinase 169 (26-192) U/L Total Protein 7.5 (6.0-8.3) gm/dl Albumin 4.4 (3.4-5.0) gm/dl Globulin 3.1 (2.5-4.0) gm/dl Albumin/Globulin Ratio 1.4 (0.9-2) TSH (0.300-4.500) uIu/ml HCG, Qual Negative (Negative) Urine Color Urine Appearance (Clear) Urine pH (4.5-7.5) Ur Specific Stephenson (1.000-1.030) Urine Protein (Negative) Urine Glucose (UA) (Negative) Urine Ketones (Negative) Urine Blood (Negative) Urine Nitrite (Negative) Urine Bilirubin (Negative) Urine Urobilinogen (Negative) Ur Leukocyte Esterase (Negative) Salicylates (3.0-30) mg/dl Urine Opiates Screen (Neg) Ur Methadone, Qual (Neg) Acetaminophen (10-30) ug/ml Urine Barbiturates (Neg) Ur Phencyclidine (PCP) (Neg) U Amphetamin/Meth Scrn (Neg) MDMA (Ecstasy) Screen (Neg) U Benzodiazepines Scrn (Neg) Ur Cocaine Metabolite (Neg) U Marijuana (THC) Screen (Neg) Ethyl Alcohol mg/dL (<10.0) mg/dl SARS-CoV-2, RNA, NAAT (NEGATIVE) 06/22/22 06/22/22 06/22/22 Range/Units 13:58 13:58 13:58 WBC (4.8-10.8) K/ul RBC (4.20-5.40) M/uL Hgb (12.0-16.0) g/dl Hct (37.0-47.0) % MCV (80.0-100.0) fL MCH (25.0-34.0) pg MCHC (32.0-36.0) g/dL RDW Std Deviation (36.4-46.3) fL RDW Coeff of Tato (11.5-14.5) % Plt Count (130-400) K/uL MPV (9.4-12.4) fL Immature Gran % (Auto) % Neut % (Auto) % Lymph % (Auto) % [place] % (Auto) % Eos % (Auto) % Baso % (Auto) % Neut # (Auto) (1.40-6.50) K/uL Lymph # (Auto) (1.2-3.4) K/uL [place] # (Auto) (0.11-0.59) K/uL Eos # (Auto) (0-0.50) K/uL Baso # (Auto) (0-0.2) K/uL Immature Gran # (Auto) (0.01-0.20) K/uL Sodium (136-145) mmol/L Potassium (3.5-5.1) mmol/L Chloride (98-107) mmol/L Carbon Dioxide (21-32) mmol/L Anion Gap (3-11) BUN (6-23) mg/dl Creatinine (0.6-1.2) mg/dl Est Cr Clr Drug Dosing ml/min Est GFR ( Amer) ml/min Est GFR (Non-Af Amer) ml/min BUN/Creatinine Ratio (10-20) Glucose (70-99(Fasting)) mg/dl Calcium (8.6-10.3) mg/dl Total Bilirubin (0.2-1.0) mg/dl AST (13-39) U/L ALT (7-52) U/L Alkaline Phosphatase (34-104) U/L Total Creatine Kinase (26-192) U/L Total Protein (6.0-8.3) gm/dl Albumin (3.4-5.0) gm/dl Globulin (2.5-4.0) gm/dl Albumin/Globulin Ratio (0.9-2) TSH 1.000 (0.300-4.500) uIu/ml HCG, Qual (Negative) Urine Color Urine Appearance (Clear) Urine pH (4.5-7.5) Ur Specific Stephenson (1.000-1.030) Urine Protein (Negative) Urine Glucose (UA) (Negative) Urine Ketones (Negative) Urine Blood (Negative) Urine Nitrite (Negative) Urine Bilirubin (Negative) Urine Urobilinogen (Negative) Ur Leukocyte Esterase (Negative) Salicylates < 3.0 L (3.0-30) mg/dl Urine Opiates Screen (Neg) Ur Methadone, Qual (Neg) Acetaminophen < 3 L (10-30) ug/ml Urine Barbiturates (Neg) Ur Phencyclidine (PCP) (Neg) U Amphetamin/Meth Scrn (Neg) MDMA (Ecstasy) Screen (Neg) U Benzodiazepines Scrn (Neg) Ur Cocaine Metabolite (Neg) U Marijuana (THC) Screen (Neg) Ethyl Alcohol mg/dL < 10.0 (<10.0) mg/dl SARS-CoV-2, RNA, NAAT (NEGATIVE) 06/22/22 06/22/22 06/22/22 Range/Units 13:58 15:05 15:05 WBC (4.8-10.8) K/ul RBC (4.20-5.40) M/uL Hgb (12.0-16.0) g/dl Hct (37.0-47.0) % MCV (80.0-100.0) fL MCH (25.0-34.0) pg MCHC (32.0-36.0) g/dL RDW Std Deviation (36.4-46.3) fL RDW Coeff of Tato (11.5-14.5) % Plt Count (130-400) K/uL MPV (9.4-12.4) fL Immature Gran % (Auto) % Neut % (Auto) % Lymph % (Auto) % [place] % (Auto) % Eos % (Auto) % Baso % (Auto) % Neut # (Auto) (1.40-6.50) K/uL Lymph # (Auto) (1.2-3.4) K/uL [place] # (Auto) (0.11-0.59) K/uL Eos # (Auto) (0-0.50) K/uL Baso # (Auto) (0-0.2) K/uL Immature Gran # (Auto) (0.01-0.20) K/uL Sodium (136-145) mmol/L Potassium (3.5-5.1) mmol/L Chloride (98-107) mmol/L Carbon Dioxide (21-32) mmol/L Anion Gap (3-11) BUN (6-23) mg/dl Creatinine (0.6-1.2) mg/dl Est Cr Clr Drug Dosing ml/min Est GFR ( Amer) ml/min Est GFR (Non-Af Amer) ml/min BUN/Creatinine Ratio (10-20) Glucose (70-99(Fasting)) mg/dl Calcium (8.6-10.3) mg/dl Total Bilirubin (0.2-1.0) mg/dl AST (13-39) U/L ALT (7-52) U/L Alkaline Phosphatase (34-104) U/L Total Creatine Kinase (26-192) U/L Total Protein (6.0-8.3) gm/dl Albumin (3.4-5.0) gm/dl Globulin (2.5-4.0) gm/dl Albumin/Globulin Ratio (0.9-2) TSH (0.300-4.500) uIu/ml HCG, Qual (Negative) Urine Color Yellow Urine Appearance Clear (Clear) Urine pH 6.5 (4.5-7.5) Ur Specific Stephenson 1.005 (1.000-1.030) Urine Protein Negative (Negative) Urine Glucose (UA) Negative (Negative) Urine Ketones Negative (Negative) Urine Blood Negative (Negative) Urine Nitrite Negative (Negative) Urine Bilirubin Negative (Negative) Urine Urobilinogen Negative (Negative) Ur Leukocyte Esterase Negative (Negative) Salicylates (3.0-30) mg/dl Urine Opiates Screen Pos H (Neg) Ur Methadone, Qual Neg (Neg) Acetaminophen (10-30) ug/ml Urine Barbiturates Neg (Neg) Ur Phencyclidine (PCP) Neg (Neg) U Amphetamin/Meth Scrn Neg (Neg) MDMA (Ecstasy) Screen Neg (Neg) U Benzodiazepines Scrn Neg (Neg) Ur Cocaine Metabolite Neg (Neg) U Marijuana (THC) Screen Pos H (Neg) Ethyl Alcohol mg/dL (<10.0) mg/dl SARS-CoV-2, RNA, NAAT NEGATIVE (NEGATIVE) Administered Medications Discontinued Medications Diphenhydramine HCl (Diphenhydramine 50 Mg/Ml Vial) 50 mg IV NOW STA Stop: 06/22/22 14:16 Last Admin: 06/22/22 14:40 Dose: 50 mg Documented By: Sodium Chloride (Nss 1000ml) 1,000 mls @ 999 mls/hr IV .Q1H1M ONE Stop: 06/22/22 14:48 Last Infusion: 06/22/22 15:14 Dose: 0 mls/hr Documented By: Admin: 06/22/22 14:11 Dose: 999 mls/hr Documented By: Lorazepam (Lorazepam 2 Mg/1 Ml Vial) 1 mg IV NOW STA Stop: 06/22/22 13:47 Last Admin: 06/22/22 14:09 Dose: 1 mg Documented By: TARAS Lorazepam (Lorazepam 2 Mg/1 Ml Vial) 2 mg IV NOW STA Stop: 06/22/22 15:19 Last Admin: 06/22/22 15:25 Dose: 2 mg Documented By: MILLA Discharge Plan Visit Data Chief Complaint: Neuro Symptoms/Deficit Stated Complaint: INVOLUNTARY MOVEMENTS ED Provider: Luca Brush Discharge Problem: Abnormal involuntary movement Patient Disposition: Being Evaluated by Hospitalist Forms Stand Alone Forms: [facility] Prescriptions Prescriptions: No Action lamotrigine 150 mg tablet 150 mg PO QAM Qty: 30 2RF lamotrigine [Lamictal] 200 mg tablet 200 mg PO HS 30 Days Qty: 30 2RF mirtazapine [Remeron] 15 mg tablet 15 mg PO HS Qty: 30 2RF venlafaxine [Effexor XR] 75 mg capsule,extended release 24hr 75 mg PO QAM Qty: 30 2RF Rx Instructions: TAKE WITH VENLAFAXINE 150MG = 225MG VENLAFAXINE EVERY MORNING. venlafaxine [Effexor XR] 150 mg capsule,extended release 24hr 150 mg PO QAM Qty: 30 2RF Rx Instructions: TAKE WITH 75MG VENLAFAXINE = 225MG VENLAFAXINE EVERY MORNING. Botox 200 unit recon soln See Rx Instructions IM .COMPLEX Qty: 1 3RF Rx Instructions: 155 UNITS IM IN THE FACE AND NECK MUSCLES EVERY 12 WEEKS PER MIGRAINE PROTOCOL candesartan [Atacand] 8 mg tablet 8 mg PO QAM Qty: 30 5RF prochlorperazine maleate 10 mg tablet 10 mg PO BID PRN (Reason: Nausea) Qty: 60 5RF Rx Instructions: TAKE THIS MED WITH NABUMETONE. baclofen 20 mg tablet 20 mg PO TID Qty: 90 5RF Rx Instructions: TAKE ONE TABLET BY MOUTH THREE TIMES DAILY oxycodone 5 mg tablet 5 mg PO Q6H PRN (Reason: pain) Qty: 30 0RF Vyepti 100 mg/mL solution 300 mg IV .COMPLEX Qty: 1 3RF Rx Instructions: 300 mg intravenously EVERY THREE MONTHS-PREMEDICATE WITH 40MG IV Solu-Medrol and 50MG IV Diphenhydramine; Nurtec ODT 75 mg tablet,disintegrating 75 mg PO Q OTHER DAY Qty: 15 3RF nabumetone 500 mg tablet 500 mg PO DAILY PRN (Reason: Migraine Headache) Qty: 30 0RF Rx Instructions: TAKE 1 TABLET BY MOUTH ONCE DAILY NEEDED FOR MIGRAINE HEADACHE; TAKE WITH FOOD benzonatate 100 mg capsule 200 mg PO TID PRN (Reason: cough) 10 Days Qty: 60 0RF cyanocobalamin (vitamin B-12) 1,000 mcg capsule 1,000 mcg PO DAILY tizanidine 4 mg tablet 4 mg PO BID albuterol sulfate 90 mcg/actuation HFA aerosol inhaler 2 inh inhalation QID PRN (Reason: shortness of breath or wheezing) Qty: 8.5 2RF spironolactone 25 mg tablet 50 mg PO DAILY 30 Days Qty: 60 3RF Rx Instructions: Take with food ascorbic acid (vitamin C) [Vitamin C] 500 mg Tablet 500 mg PO QAM cholecalciferol (vitamin D3) [Vitamin D3] 125 mcg (5,000 unit) Tablet 125 mcg PO QAM Probiotic 10 billion cell Capsule 10,000 mmu cells PO QAM topiramate 25 mg tablet See Rx Instructions .ROUTE .COMPLEX Rx Instructions: TAKES 25 MG QAM, THEN 50 MG QPM. riboflavin (vitamin B2) 400 mg Tablet 400 mg PO DAILY clindamycin phosphate 1 % lotion 1 applic topical DAILY PRN (Reason: SKIN IRRITATION NEEDED) Rx Instructions: Apply to the affected areas once daily after washing. dihydroergotamine 1 mg/mL solution 1 mg subcut Q1H MDD 3mg PRN (Reason: Migraine Headache) pantoprazole 40 mg tablet,delayed release (DR/EC) 40 mg PO DAILY Referrals Referrals: Gagandeep Carroll MD [Primary Care Provider] -
[2022-06-22] MEDS ORDERED: diphenhydrAMINE 50 MG/ML VIAL IV STA (14:15)
[2022-06-22 14:29] LABS: Basophils # (auto) 0.06 K/uL (0-0.2); Basophils % (auto) 0.5 %; Eosinophils # (auto) 0.25 K/uL (0-0.50); Eosinophils % (auto) 1.9 %; Hematocrit (blood only) 39.6 % (37.0-47.0); Hemoglobin 13.5 g/dl (12.0-16.0); Immature Granulocytes # (auto) 0.05 K/uL (0.01-0.20); Immature Granulocytes % (auto) 0.4 %; Lymphocytes # (auto) 3.22 K/uL (1.2-3.4); Lymphocytes % (auto) 24.8 %; Mean Corpuscular Hemoglobin 31.3 pg (25.0-34.0); Mean Corpuscular Hgb Conc 34.1 g/dL (32.0-36.0); Mean Corpuscular Volume 91.7 fL (80.0-100.0); Mean Platelet Volume 8.7 fL (9.4-12.4); Monocytes # (auto) 0.77 K/uL (0.11-0.59); Monocytes % (auto) 5.9 %; Neutrophils # (auto) 8.64 K/uL (1.40-6.50); Neutrophils % (auto) 66.5 %; Platelet Count 455 K/uL (130-400); RDW Coefficient of Variation 12.8 % (11.5-14.5); RDW Standard Deviation 42.6 fL (36.4-46.3); Red Blood Count 4.32 M/uL (4.20-5.40); White Blood Count 12.99 K/ul (4.8-10.8)
[2022-06-22 14:42] LABS: Pregnancy Test, Serum Negative (Negative)
[2022-06-22 14:43] LABS: Acetaminophen < 3 ug/ml (10-30); Salicylate < 3.0 mg/dl (3.0-30)
[2022-06-22 14:45] LABS: Albumin Globulin Ratio 1.4 (0.9-2); Albumin Level 4.4 gm/dl (3.4-5.0); BUN Creatinine Ratio 12.9 (10-20); Bilirubin,Total 0.3 mg/dl (0.2-1.0); Creatinine Clr Calc Pharmacy 94.1 ml/min; Est GFR (Non-African American) 78.5 ml/min; Globulin 3.1 gm/dl (2.5-4.0); Potassium 4.7 mmol/L (3.5-5.1); Total Protein 7.5 gm/dl (6.0-8.3)
[2022-06-22 15:16] LABS: Appearance Urine Clear (Clear); Bilirubin Urine Negative (Negative); Blood Urine Negative (Negative); Color Urine Yellow; Glucose Urine UA Negative (Negative); Ketones Urine Negative (Negative); Leukocyte Esterase Urine Negative (Negative); Nitrite Urine Negative (Negative); Protein Urine Negative (Negative); Specific Gravity Urine 1.005 (1.000-1.030); Urobilinogen Urine Negative (Negative); pH Urine 6.5 (4.5-7.5)
[2022-06-22 16:05] LABS: Amphetamines+Metham, Urine Neg (Neg); Barbiturates, Urine Neg (Neg); Benzodiazepine, Urine Neg (Neg); Cocaine, Urine Neg (Neg); MDMA (Ecstacy), Urine Neg (Neg); Methadone, Urine Neg (Neg); Opiate, Urine Pos (Neg); Phencyclidine, Urine Neg (Neg)
--- NOTE | 2022-06-22 18:35 | History & Physical Report ---
Date of Service June 22, 2022 Assessment & Plan (1) Abnormal movement: Plan: Addis is a 37-year-old female the past medical history of migraine, bipolar disorder, anxiety,, GERD, and hypertension who presents for concern of restlessness and choreiform like movements. She was seen in the ED and given Ativan 3 mg, Benadryl 50 and became extremely sedated. Was recommended for admission for monitoring. ?Akasthesia/Pseudochoreoform movement At bedside exam Reyna awakens and follows, commands before falling back asleep. Initially during exam passive and active range of motion is without cogwheeling, rigidity, or choreiform movement. Wheeler through strength testing patient did develop upper and lower choreiform like movements, did not endorse any weakness or sensory change. Inconsistent with EPS. Denies any recreational drug or nonprescribed substance use. Does endorse medical marijuana use through dispensary. Psychotropics continued as noted Do not think patient would benefit from Cogentin at this time Psychiatry consulted, ?Akathisia Denies SI/HI Awaken easily but extremely somnolent, no airway distress at time of admission Anxiety/depression/history of bipolar disorder Last took medications this morning Home medications continued Migraines Patient denies headache/migraine/fever/chills at time of assessment. Continue home medications DVT prophylaxis: Low risk Diet: Regular Disposition: Medical/surgical CODE STATUS: Full code (2) Psychosomatic factor in physical condition: (3) Hypothyroidism: (4) Hypertension: History of Present Illness Primary Care Provider: Gagandeep Carroll MD Reyna is a 37-year-old female with past medical history of COVID, hypothyroidism, hypertension, bipolar disorder, anxiety who presents with spasmodic movements of her arms and legs which include the upper and lower body and which were not associated with loss of consciousness. This disrupted her sleep, and she helped she also had aches. She has not been eating and drinking well in the last day. Took her other medications other than conservative. Patient did endorse medical marijuana use which did not affect her symptoms. Denied stimulant use. Did receive Ativan in the ER, however had increased sedation following 3 mg of Ativan and 50 mg of IV Benadryl and general is recommended for overnight observation of sedation in morning psychiatric evaluation. Flumazenil was discussed with ER, deferred on route/benefits discussion. Ailyn is seen in the ER with her grandmother present. She is somnolent, but arousable and answers questions appropriately. She reports that she took all of her medications this morning, has used medical marijuana from a dispensary yesterday and today, but has not used any marijuana through alternative sources, other recreational drugs, or other medications including psychotropics or pharmacologic's. She reports that this morning she became very restless with movements throughout her upper and lower extremities, and without weakness. She felt that this restlessness did not improve with a massage or her regular medications and came to the ER for evaluation. She falls asleep intermittently during exam. Grandmother is present at bedside who gives collateral, affirms patient's story. Does not have additional details. Notes patient did recent sleep Dr. Gonzalez and that note is updated correctly with her medications. Denies fever, chills, sweats. Notes that she does get flushed easily. Denies headache. Denies vision change. Denies neck rigidity. Denies numbn ess/tingling Medical History: Reviewed Medications: Reviewed Surgical History: Reviewed Family history: Reviewed Allergies: Reviewed Social History: Medical marijuana, cigarette use, denies alcohol use Code Status: Full Allergies Allergy/AdvReac Type Severity Reaction Status Date / Time galcanezumab-gnlm Allergy Mild Site Verified 06/22/22 15:17 [From Emgality Pen] reaction trazodone Allergy Unknown UNKNOWN Verified 06/22/22 15:17 estradiol AdvReac Intermediate "crazy" Verified 06/22/22 15:17 leuprolide AdvReac Intermediate Mental Verified 06/22/22 15:17 complications medroxyprogesterone AdvReac Intermediate mood Verified 06/22/22 15:17 [From Depo-Provera] changes morphine AdvReac Intermediate MAKES HER Verified 06/22/22 15:17 ANXIOUS NSAIDS (Non-Steroidal AdvReac Intermediate Migraine Verified 06/22/22 15:17 Anti-Inflamma tramadol AdvReac Intermediate GIVES HER Verified 06/22/22 15:17 THE [facility] Home Medications Medication Instructions Recorded Confirmed Type ascorbic acid (vitamin C) 500 mg 500 mg PO QAM 04/03/20 06/22/22 History tablet (Vitamin C) cholecalciferol (vitamin D3) 125 125 mcg PO QAM 04/03/20 06/22/22 History mcg (5,000 unit) tablet (Vitamin D3) Lactobacillus acidophilus 10 10,000 mmu cells PO QAM 05/20/21 06/22/22 History billion cell capsule (Probiotic) cyanocobalamin (vitamin B-12) 1,000 mcg PO DAILY 09/25/21 06/22/22 History 1,000 mcg capsule onabotulinumtoxinA 200 unit See Rx Instructions IM .COMPLEX #1 01/24/22 06/22/22 Rx solution for injection (Botox) ea candesartan 8 mg tablet (Atacand) 8 mg PO QAM #30 tabs 02/04/22 06/22/22 Rx prochlorperazine maleate 10 mg 10 mg PO BID PRN Nausea #60 tabs 02/13/22 06/22/22 Rx tablet baclofen 20 mg tablet 20 mg PO TID #90 tabs 02/27/22 06/22/22 Rx oxycodone 5 mg tablet 5 mg PO Q6H PRN pain #30 tabs 04/19/22 06/22/22 Rx albuterol sulfate 90 mcg/actuation 2 inh inhalation QID PRN shortness 05/01/22 06/22/22 Rx aerosol inhaler of breath or wheezing #8.5 grams dihydroergotamine 1 mg/mL 1 mg subcut Q1H PRN Migraine 05/05/22 06/22/22 History injection solution Headache pantoprazole 40 mg tablet,delayed 40 mg PO DAILY 05/05/22 06/22/22 History release eptinezumab-jjmr 100 mg/mL 300 mg (3 mL) IV .COMPLEX #1 mL 05/13/22 06/22/22 Rx intravenous solution (Vyepti) tizanidine 4 mg tablet 4 mg PO BID 05/16/22 06/22/22 History spironolactone 25 mg tablet 50 mg PO DAILY 30 days #60 tabs 05/24/22 06/22/22 Rx nabumetone 500 mg tablet 500 mg PO DAILY PRN Migraine 06/14/22 06/22/22 Rx Headache #30 tabs rimegepant 75 mg disintegrating 75 mg PO Q OTHER DAY #15 tabs 06/14/22 06/22/22 Rx tablet (Nurtec ODT) benzonatate 100 mg capsule 200 mg PO TID PRN cough 10 days 06/18/22 06/22/22 Rx #60 caps lamotrigine 150 mg tablet 150 mg PO QAM #30 tabs 06/21/22 06/22/22 Rx lamotrigine 200 mg tablet 200 mg PO HS 30 days #30 tabs 06/21/22 06/22/22 Rx (Lamictal) mirtazapine 15 mg tablet (Remeron) 15 mg PO HS #30 tabs 06/21/22 06/22/22 Rx venlafaxine 150 mg 150 mg PO QAM #30 caps 06/21/22 06/22/22 Rx capsule,extended release 24 hr (Effexor XR) venlafaxine 75 mg capsule,extended 75 mg PO QAM #30 caps 06/21/22 06/22/22 Rx release 24 hr (Effexor XR) clindamycin phosphate 1 % lotion 1 applic topical DAILY PRN SKIN 06/22/22 06/22/22 History IRRITATION NEEDED riboflavin (vitamin B2) 400 mg 400 mg PO DAILY 06/22/22 06/22/22 History tablet topiramate 25 mg tablet See Rx Instructions .Route .COMPLEX 06/22/22 06/22/22 History Past Med/Surg History Medical History Anxiety Asthma Bilateral sacroiliitis Cervical radiculopathy Depression Endometriosis Hematologic disease Hypertension Hypothyroidism Medical marijuana use Migraines Mixed anxiety and depressive disorder Obesity Occipital neuralgia Solitary pulmonary nodule (10/05/16) Thrombocytosis Surgical History History of anesthesia reaction History of carpal tunnel release of both wrists History of cholecystectomy History of colonoscopy (08/15/16) History of laparoscopy (06/28/16) History of left salpingo-oophorectomy History of lithotripsy History of recent maxillofacial surgery History of removal of calculus of renal pelvis through percutaneous nephrostomy History of removal of cyst S/P laparoscopic hysterectomy S/P tonsillectomy and adenoidectomy Family History Grandmother No problems noted. Grandmother (Maternal) Breast cancer Grandmother (Paternal) Breast cancer Sister Cancer Mother Clotting disorder Hypertension Stroke Father Hypertension Other Heart disease No family history of adverse response to anesthesia No significant family history Social History Smoking Status: Current every day smoker Tobacco Type: Cigarettes Cigarettes Per Day: 5-7 daily; Second Hand Exposure: Yes (parents smoked); Hx Alcohol Use: No Hx Substance Use: No (only Medical marijuana<uses lotion) Preferred Language: Malawian Communication Ability: Effective Visual Impairment: No Limitations Hearing Ability: Normal Automotive Machinist Required: No Beliefs That Will Affect Care: None marital status: Current Living Situation: Other Current Living Situation Comment: Pt reports she lives at home with her 13 year old daughter current occupational status: employed 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 Is oriented to name, date, and place HEENT: Atraumatic, normocephalic. Scleral injection bilaterally, vision grossly intact, hearing grossly intact. Pupils equal and reactive to light. Pupils are not abnormally constricted or dilated at bedside exam Pulm: CTAB A&P. -wheezes, -rales, -rhonchi. Symmetrical chest rise. No increased work of breathing. No respiratory distress. No stridor Cardiac: RRR, -mrg. Radial pulses intact and symmetrical. Abdominal: Nontender, nondistended, soft. BS present. Extremities: Warm, dry. At rest shoulder flexion, elbow flexion/extension, wrist flexion/extension, ankle flexion/extension, on passive movement are all fluid and without rigidity/cogwheeling. Strength testing 5/5 to audiovisual aids technician strength, elbow flexion/extension, hip flexion, ankle dorsiflexion/plantarflexion on active testing, midway through exam patient does develop some choreiform/choreaform like movemnts Results & Data Results & Data Vital Signs (Past 12 Hours) Vital Signs Pulse Resp BP Pulse Ox O2 Del Method 06/22/22 16:16 79 06/22/22 12:46 118 H 18 160/98 H 97 Room Air PG Care Time/CCT Total # of Minutes Spent Total Time Spent with Patient: Total time spent is greater than 50% in coordination of care (as documented) at patient's floor/unit and/or counseling patient: Coding Level of Care Code 52979 INT INP/OBS CARE MIN Diagnoses Abnormal movement R25.9 Psychosomatic factor in physical condition F54 Hypothyroidism E03.9 Hypertension I10
[2022-06-22] MEDS ORDERED: PROCHLORPERAZINE MALEATE 10 MG TAB PO PRN (21:25)
[2022-06-22] MEDS ORDERED: ALBUTEROL HFA 8 GM INHALER INH PRN (21:25)
[2022-06-22] MEDS ORDERED: MIRTAZAPINE TAB 15 MG TAB PO SCH (21:25)
[2022-06-22] MEDS ORDERED: lamoTRIgine 100 MG TAB PO SCH (21:25)
[2022-06-22] MEDS ORDERED: TOPIRAMATE 25 MG TAB PO SCH (21:25)
[2022-06-22 22:23] LABS: Lyme Ab IgG w/WB Rflx Negative (Negative); Lyme Ab IgM w/WB Rflx Negative (Negative)
[2022-06-22] MEDS: BACLOFEN 20 MG TAB PO SCH (22:29)
[2022-06-22] MEDS ORDERED: diphenhydrAMINE Capsule 25 MG CAP PO ONE (23:04)
[2022-06-23 06:44] LABS: Hemoglobin 13.1 g/dl (12.0-16.0); Mean Corpuscular Hemoglobin 30.8 pg (25.0-34.0); Mean Corpuscular Hgb Conc 33.6 g/dL (32.0-36.0); Mean Corpuscular Volume 91.5 fL (80.0-100.0); Mean Platelet Volume 8.7 fL (9.4-12.4); Platelet Count 422 K/uL (130-400); RDW Coefficient of Variation 13.1 % (11.5-14.5); RDW Standard Deviation 43.8 fL (36.4-46.3); Red Blood Count 4.26 M/uL (4.20-5.40); White Blood Count 7.26 K/ul (4.8-10.8)
[2022-06-23 07:03] LABS: BUN Creatinine Ratio 12.2 (10-20); Calcium 8.9 mg/dl (8.6-10.3); Creatinine Clr Calc Pharmacy 118.3 ml/min; Est GFR (Non-African American) 103.5 ml/min; Potassium 4.2 mmol/L (3.5-5.1)
[2022-06-23 07:08] LABS: Basophils # (auto) 0.07 K/uL (0-0.2); Echinocytes 2+; Eosinophils # (auto) 0.29 K/uL (0-0.50); Immature Granulocytes # (auto) 0.07 K/uL (0.01-0.20); Lymphocytes # (auto) 3.81 K/uL (1.2-3.4); Lymphocytes % (auto) 52.5 %; Monocytes # (auto) 0.61 K/uL (0.11-0.59); Monocytes % (auto) 8.4 %; Neutrophils # (auto) 2.41 K/uL (1.40-6.50); Neutrophils % (auto) 33.1 %; Polychromasia 1+
--- NOTE | 2022-06-23 07:15 | Electrocardiogram Report ---
Test Reason : Blood Pressure : / mmHG Vent. Rate : 092 BPM Atrial Rate : 092 BPM P-R Int : 130 ms QRS Dur : 088 ms QT Int : 362 ms P-R-T Axes : 061 054 034 degrees QTc Int : 447 ms Poor data quality, interpretation may be adversely affected Normal sinus rhythm Normal ECG When compared with ECG of 15-JUN-2022 11:57, No significant change was found Confirmed by Gagandeep Joseph ([id number]) on 06/23/2022 7:15:10 AM Referred By: REFERRED SELF Confirmed By:Tommy Joseph
[2022-06-23] MEDS: BACLOFEN 20 MG TAB PO SCH ×2 (08:38→13:20)
[2022-06-23] MEDS ORDERED: VENLAFAXINE HCL XR 75 MG CAPXR PO SCH (09:00)
[2022-06-23] MEDS ORDERED: TOPIRAMATE 25 MG TAB PO SCH (09:00)
[2022-06-23] MEDS ORDERED: ASCORBIC ACID 500 MG TAB PO SCH (09:00)
[2022-06-23] MEDS ORDERED: SPIRONOLACTONE 25 MG TAB PO SCH (09:00)
[2022-06-23] MEDS ORDERED: LOSARTAN POTASSIUM 25 MG TAB PO SCH (09:00)
[2022-06-23] MEDS ORDERED: lamoTRIgine 25 MG TAB PO SCH (09:00)
[2022-06-23] MEDS ORDERED: CHOLECALCIFEROL 5,000 UNITS 125 MCG TAB PO SCH (09:00)
[2022-06-23] MEDS ORDERED: VENLAFAXINE HCL XR 150 MG CAPXR PO SCH (09:00)
[2022-06-23] MEDS ORDERED: PANTOprazole 40 MG TAB PO SCH (09:00)
[2022-06-23] MEDS ORDERED: CYANOCOBALAMIN (B-12) 500 MCG TABLET PO SCH (09:00)
[2022-06-23] MEDS ORDERED: NABUMETONE 500 MG TABLET PO PRN (11:53)
--- NOTE | 2022-06-23 13:15 | Psychiatric Consultation ---
Date of Consultation June 23, 2022 Impression / Recommendations Impression 37 yo woman with history of depression, anxiety, BPD, chronic pain, migraines admitted medically for new onset muscle twitching. Diagnostically doesn't appear consistent with akathisia, tardive dyskinesia nor acute dystonic reaction. Serotonin syndrome possible but felt to be unlikely given quick improvement, no vital signs changes, no evidence of clonus on ED/medical admission exams however, PDMP notable for new codeine script on 06/19/2022 that patient did not discuss which possibly could have been enough to set off very mild serotonin syndrome in setting of mirtazapine, venlafaxine, lamictal and topiramate use. Functional neurologic presentation possible but less likely in setting of observed movements by RN while she was sleeping and no recent stressors. Given history of concussions and recent neurosurgical procedure if movements re-occur or worsen recommend she see neurology. Encouragingly is showing signs of improvement today. Discussed recommendation to continue to hold her Concerta until movements improve as stimulants can worsen muscle twitching and consideration of reducing venlafaxine ER dose if movements worsen again or do not continue to improve. Otherwise would not change venla faxine ER given potential for worsening mood symptoms and unlikely to be cause of new muscle movements given she has been at 225mg ER dose for a long time without any previous side effects. (1) Abnormal movement: (2) Depression: (3) Migraines: Intractability: not intractable Migraine type: unspecified Status migrainosus presence: without status migrainosus Qualified Code(s): G43.909 - Migraine, unspecified, not intractable, without status migrainosus Plan -Discontinue codeine if she is still using this -Hold Concerta until movements fully resolve -If movements do not continue to improve consider reducing Effexor XR to 150mg daily -If symptoms worsen or do not improve would involve neurology, if presentation felt to functional neurologic syndrome encourage psychotherapy and physical therapy -She has outpatient psychiatric follow-up, will ask psych liason to have her sign SLAVA so records can be sent to Dr. Holland Psych History Identifying Data Reyna Pop is a 37 yo woman with history of depression, anxiety, BPD traits, migraines, fibromyalgia, multiple concussions and recent occipital nerve decompression admitted medically following acute onset of full body muscle twitches. Psychiatry consulted for recommendations. Chief Complaint "I'm feeling better today but tired and my muscles feel sore". History of Present Illness Reyna reviews starting to have new muscle twitching on that worsened into Friday. She also felt like her muscles were very stiff and got a massage on Friday and the masseu then recommended she come to the ED. She recalls feeling "so warm and sweaty" "like I couldn't cool down" but did not have a fever on multiple checks in the ED. She denies any changes in her pupils or noticing any muscle clonus/repeated movements. [place] like her muscles "just neede d to do something" but struggles to describe what that was. Reviewed symptoms of tremor, akathisia, tardive dyskinesia, acute dystonia and she denies any of these symptoms currently, in recent days or historically. RN note from last night observed ongoing motor movements while she was asleep. Movements described in ED and on admission as more choreiform in nature. Today Reyna is sleeping but awakens easily. No noticeable movements on visual exam though she describes sense of needing to bend her knuckles at times. Feels like her muscles are sore today. Denies any recent mood changes, denies SI. Denies any recent stressors or any recent panic attacks or heightened anxiety. She wonders about possible contribution from recent concussion/TBI, hasn't been able to see concussion specialist yet as awaiting insurance prior authorization for this assessment. Denies any recent medication changes, no new migraine medications, no over the counter medications. Held off on taking her Concerta on Friday due to muscle movements but otherwise fully medication adherent. Confirmed psychiatric medications as: Effexor XR 225mg daily, Concerta, mirtazapine 15mg HS, lamictal and topiramate. Recieved recent Velpti infusion for migraines which is one of the new anti-CGRP medications and no evidence for serotonergic interactions. Sees Dr. Holland for psychiatric follow-up through the pain clinic, also follows regularly with neurology clinic for migraine management. Allergies Allergy/AdvReac Type Severity Reaction Status Date / Time galcanezumab-[facility] Allergy Mild Site Verified 06/22/22 15:17 [From Emgality Pen] reaction trazodone Allergy Unknown UNKNOWN Verified 06/22/22 15:17 estradiol AdvReac Intermediate "crazy" Verified 06/22/22 15:17 leuprolide AdvReac Intermediate Mental Verified 06/22/22 15:17 complications medroxyprogesterone AdvReac Intermediate mood Verified 06/22/22 15:17 [From Depo-Provera] changes morphine AdvReac Intermediate MAKES HER Verified 06/22/22 15:17 ANXIOUS NSAIDS (Non-Steroidal AdvReac Intermediate Migraine Verified 06/22/22 15:17 Anti-Inflamma tramadol AdvReac Intermediate GIVES HER Verified 06/22/22 15:17 [facility] Home Medications Medication Instructions Recorded Confirmed Type ascorbic acid (vitamin C) 500 mg 500 mg PO QAM 04/03/20 06/22/22 History tablet (Vitamin C) cholecalciferol (vitamin D3) 125 125 mcg PO QAM 04/03/20 06/22/22 History mcg (5,000 unit) tablet (Vitamin D3) Lactobacillus acidophilus 10 10,000 mmu cells PO QAM 05/20/21 06/22/22 History billion cell capsule (Probiotic) cyanocobalamin (vitamin B-12) 1,000 mcg PO DAILY 09/25/21 06/22/22 History 1,000 mcg capsule onabotulinumtoxinA 200 unit See Rx Instructions IM .COMPLEX #1 01/24/22 06/22/22 Rx solution for injection (Botox) ea candesartan 8 mg tablet (Atacand) 8 mg PO QAM #30 tabs 02/04/22 06/22/22 Rx prochlorperazine maleate 10 mg 10 mg PO BID PRN Nausea #60 tabs 02/13/22 06/22/22 Rx tablet baclofen 20 mg tablet 20 mg PO TID #90 tabs 02/27/22 06/22/22 Rx oxycodone 5 mg tablet 5 mg PO Q6H PRN pain #30 tabs 04/19/22 06/22/22 Rx albuterol sulfate 90 mcg/actuation 2 inh inhalation QID PRN shortness 05/01/22 06/22/22 Rx aerosol inhaler of breath or wheezing #8.5 grams dihydroergotamine 1 mg/mL 1 mg subcut Q1H PRN Migraine 05/05/22 06/22/22 History injection solution Headache pantoprazole 40 mg tablet,delayed 40 mg PO DAILY 05/05/22 06/22/22 History release eptinezumab-jjmr 100 mg/mL 300 mg (3 mL) IV .COMPLEX #1 mL 05/13/22 06/22/22 Rx intravenous solution (Vyepti) tizanidine 4 mg tablet 4 mg PO BID 05/16/22 06/22/22 History spironolactone 25 mg tablet 50 mg PO DAILY 30 days #60 tabs 05/24/22 06/22/22 Rx nabumetone 500 mg tablet 500 mg PO DAILY PRN Migraine 06/14/22 06/22/22 Rx Headache #30 tabs rimegepant 75 mg disintegrating 75 mg PO Q OTHER DAY #15 tabs 06/14/22 06/22/22 Rx tablet (Nurtec ODT) benzonatate 100 mg capsule 200 mg PO TID PRN cough 10 days 06/18/22 06/22/22 Rx #60 caps lamotrigine 150 mg tablet 150 mg PO QAM #30 tabs 06/21/22 06/22/22 Rx lamotrigine 200 mg tablet 200 mg PO HS 30 days #30 tabs 06/21/22 06/22/22 Rx (Lamictal) mirtazapine 15 mg tablet (Remeron) 15 mg PO HS #30 tabs 06/21/22 06/22/22 Rx venlafaxine 150 mg 150 mg PO QAM #30 caps 06/21/22 06/22/22 Rx capsule,extended release 24 hr (Effexor XR) venlafaxine 75 mg capsule,extended 75 mg PO QAM #30 caps 06/21/22 06/22/22 Rx release 24 hr (Effexor XR) clindamycin phosphate 1 % lotion 1 applic topical DAILY PRN SKIN 06/22/22 06/22/22 History IRRITATION NEEDED riboflavin (vitamin B2) 400 mg 400 mg PO DAILY 06/22/22 06/22/22 History tablet topiramate 25 mg tablet See Rx Instructions .Route .COMPLEX 06/22/22 06/22/22 History Patient History Medical History Anxiety Asthma Remote hx, no longer uses inhaler. Bilateral sacroiliitis Cervical radiculopathy Depression Endometriosis Per laproscopic biopsy 07/01/2016 Hematologic disease Patient being worked up by heme currently for elevated platelets, abnormal IGG levels. Hypertension Is on candesartan for migraines and pedal edema from Lyrica. HTN treated secondarily. Hypothyroidism Medical marijuana use Migraines Mixed anxiety and depressive disorder Obesity Occipital neuralgia Solitary pulmonary nodule (10/05/16) 4mm non-calcified pulmonary nodule LLL, statistically benign in this age group. No follow up recommended. Thrombocytosis monitoring with [facility]. Surgical History History of anesthesia reaction has woken up during procedures before "remembers being held down and it was awful" History of carpal tunnel release of both wrists History of cholecystectomy History of colonoscopy (08/15/16) Hematochezia w/u - Non-diagnostic. No pathology noted on biopsies. History of laparoscopy (06/28/16) Endometriosis w/u. Biopsy noted proliferative endometrium consistent with endometriosis. History of left salpingo-oophorectomy History of lithotripsy History of recent maxillofacial surgery "a couple times" for nasal bone fractures. History of removal of calculus of renal pelvis through percutaneous nephrostomy History of removal of cyst right hand S/P laparoscopic hysterectomy 05/2020 S/P tonsillectomy and adenoidectomy Family History Grandmother No problems noted. Grandmother (Maternal) Breast cancer Grandmother (Paternal) Breast cancer Sister Cancer Mother Clotting disorder Hypertension Stroke Father Hypertension Other Heart disease No family history of adverse response to anesthesia No significant family history Social History Smoking Status: Current every day smoker Tobacco Type: Cigarettes Cigarettes Per Day: 10-15 per day, trying to quit- smoked less this week; Second Hand Exposure: Yes; Do You Dip or Chew Tobacco: No; Hx Alcohol Use: Yes Alcohol type: beer Hx Substance Use: Yes Non-Prescribed Medications: Marijuana Last Used Substance: Days (ago) Last Used Substance Other:: yester day and today Substance Use Type Other:: medical marijuana Preferred Language: Honduran Communication Ability: Effective Visual Impairment: No Limitations Hearing Ability: Normal Pattern Drum Maker Required: No Beliefs That Will Affect Care: None marital status: Current Living Situation: Family Current Living Situation Comment: Pt reports she lives at home with her 13 year old daughter current occupational status: employed 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 Feels Safe at Home: Yes Safety Concerns: Feels Safe At This Time during the past year weight has: remained stable Assistive Devices: Glasses Physical Exam Psychiatric: Orientation: alert and oriented x 3 Apperance: appropriately dressed and appropriately groomed Eye Contact: good eye contact Motor Behavior: no abnormal motor movements Speech: normal rate/rhythm/volume of speech Affect: + constricted affect Mood: no depressed mood and no anxious mood Thought Process: linear/logical thought process Thought Content: r eality based without delusions Suicidal Thoughts: denies suicidal thoughts Homicidal Thoughts: denies homicidal thoughts Hallucinations: no auditory hallucinations and no visual hallucinations Cognition: recent memory grossly intact, remote memory grossly intact, attention grossly intact and language grossly intact Estimated Intelligence: consistent with education level Insight: + fair insight Judgment: + fair judgement Vital Signs (Past 24 Hours): Last Vital Signs Temp 36.6 C 06/23/22 07:20 Pulse 58 L 06/23/22 07:20 Resp 16 06/23/22 07:20 BP 106/73 06/23/22 07:20 Pulse Ox 96 06/23/22 07:20 O2 Del Method Room Air 06/23/22 07:20 Review of Systems All systems reviewed & are unremarkable except as noted in HPI & below Results & Data (PSY) Laboratory Results Na+ normalized, CK normal Medications Administered Ascorbic Acid (Ascorbic Acid 500 Mg Tab) 500 mg PO QAM [facility] Stop: 07/23/22 08:59 Last Admin: 06/23/22 08:36 Dose: 500 mg Documented By: RDRadha Baclofen (Baclofen 20 Mg Tab) 20 mg PO TID [facility] Stop: 07/22/22 21:24 Last Admin: 06/23/22 08:38 Dose: 20 mg Documented By: RDRadha Admin: 06/22/22 22:29 Dose: 20 mg Documented By: DAX Cyanocobalamin (Cyanocobalamin (B-12) 500 Mcg Tablet) 1,000 mcg PO DAILY [facility] Stop: 07/23/22 08:59 Last Admin: 06/23/22 08:38 Dose: 1,000 mcg Documented By: MICHAEL Lamotrigine (Lamotrigine 100 Mg Tab) 200 mg PO HS [facility] Stop: 07/22/22 21:24 Last Admin: 06/22/22 22:29 Dose: 200 mg Documented By: DAX Lamotrigine (Lamotrigine 25 Mg Tab) 150 mg PO QAM [facility] Stop: 07/23/22 08:59 Last Admin: 06/23/22 08:37 Dose: 150 mg Documented By: MICHAEL Losartan Potassium (Losartan Potassium 25 Mg Tab) 25 mg PO QAM [facility] Stop: 07/23/22 08:59 Last Admin: 06/23/22 08:37 Dose: 25 mg Documented By: MICHAEL Mirtazapine (Mirtazapine Tab 15 Mg Tab) 15 mg PO HS [facility] Stop: 07/22/22 21:24 Last Admin: 06/22/22 22:30 Dose: 15 mg Documented By: DAX Pantoprazole Sodium (Pantoprazole 40 Mg Tab) 40 mg PO DAILY [facility] Stop: 07/23/22 08:59 Last Admin: 06/23/22 08:37 Dose: 40 mg Documented By: MICHAEL Spironolactone (Spironolactone 25 Mg Tab) 50 mg PO DAILY [facility] Stop: 07/23/22 08:59 Last Admin: 06/23/22 08:37 Dose: Not Given Documented By: MICHAEL Topiramate (Topiramate 25 Mg Tab) 50 mg PO PM [facility] Stop: 07/22/22 21:24 Last Admin: 06/22/22 22:30 Dose: 50 mg Documented By: DAX Topiramate (Topiramate 25 Mg Tab) 25 mg PO QAM [facility] Stop: 07/23/22 08:59 Last Admin: 06/23/22 08:38 Dose: 25 mg Documented By: MICHAEL Venlafaxine HCl (Venlafaxine Hcl Xr 75 Mg Capxr) 75 mg PO QAM [facility] Stop: 07/23/22 08:59 Last Admin: 06/23/22 08:37 Dose: 75 mg Documented By: MICHAEL Venlafaxine HCl (Venlafaxine Hcl Xr 150 Mg Capxr) [facility] [place] Stop: 07/23/22 08:59 Last Admin: 06/23/22 08:37 Dose: 150 mg Documented By: MICHAEL Vitamin D (Cholecalciferol 5,000 Units 125 Mcg Tab) 5,[facility] [place] Stop: 07/23/22 08:59 Last Admin: 06/23/22 08:37 Dose: 5,000 units Documented By: RDL Coding Level of Care Code 19706 IN/OBS CONSULT LVL 4,60M Diagnoses Abnormal movement R25.9 Depression F32.9 Migraines G43.909 Intractability: not intractable Migraine type: unspecified Status migrainosus presence: without status migrainosus Time Spent (min) 65
[2022-06-23] MEDS ORDERED: NURTEC 75 MG PO SCH (14:00)
--- NOTE | 2022-06-23 14:43 | Discharge Summary ---
Date of Service June 23, 2022 Admission HPI Per Admitting Provider Reyna is a 37-year-old female with past medical history of COVID, hypothyroidism, hypertension, bipolar disorder, anxiety who presents with spasmodic movements of her arms and legs which include the upper and lower body and which were not associated with loss of consciousness. This disrupted her sleep, and she helped she also had aches. She has not been eating and drinking well in the last day. Took her other medications other than conservative. Patient did endorse medical marijuana use which did not affect her symptoms. Denied stimulant use. Did receive Ativan in the ER, however had increased sedation following 3 mg of Ativan and 50 mg of IV Benadryl and general is recommended for overnight observation of sedation in morning psychiatric evaluation. Flumazenil was discussed with ER, deferred on route/benefits discussion. Ailyn is seen in the ER with her grandmother present. She is somnolent, but arousable and answers questions appropriately. She reports that she took all of her medications this morning, has used medical marijuana from a dispensary yesterday and today, but has not used any marijuana through alternative sources, other recreational drugs, or other medications including psychotropics or pharmacologic's. She reports that this morning she became very restless with movements throughout her upper and lower extremities, and without weakness. She felt that this restlessness did not improve with a massage or her regular medications and came to the ER for evaluation. She falls asleep intermittently during exam. Grandmother is present at bedside who gives collateral, affirms patient's story. Does not have additional details. Notes patient did recent sleep Dr. Gonzalez and that note is updated correctly with her medications. Denies fever, chills, sweats. Notes that she does get flushed easily. Denies headache. Denies vision change. Denies neck rigidity. Denies numbness/tingling Medical History: Reviewed Medications: Reviewed Surgical History: Reviewed Family history: Reviewed Allergies: Reviewed Social History: Medical marijuana, cigarette use, denies alcohol use Code Status: Full Principal Diagnosis Involuntary movements, uncertain cause Discharge Exam GENERAL: 37 yo Well-developed, well-nourished WF. NAD. LUNGS: Clear to auscultation bilaterally. No W/R/R. CARDIOVASCULAR: Regular rate and rhythm. No M/G/R. No JVD. NEUROLOGIC: A&O x3. No focal neurological deficits. CN II-XII grossly intact. No involuntary movements/twitching observed. PSYCHIATRIC: Cooperative. Appropriate mood and affect. Discharge Data Allergies Allergy/AdvReac Type Severity Reaction Status Date / Time galcanezumab-gnlm Allergy Mild Site Verified 06/22/22 15:17 [From Emgality Pen] reaction trazodone Allergy Unknown UNKNOWN Verified 06/22/22 15:17 estradiol AdvReac Intermediate "crazy" Verified 06/22/22 15:17 leuprolide AdvReac Intermediate Mental Verified 06/22/22 15:17 complications medroxyprogesterone AdvReac Intermediate mood Verified 06/22/22 15:17 [From Depo-Provera] changes morphine AdvReac Intermediate MAKES HER Verified 06/22/22 15:17 ANXIOUS NSAIDS (Non-Steroidal AdvReac Intermediate Migraine Verified 06/22/22 15:17 Anti-Inflamma tramadol AdvReac Intermediate GIVES HER Verified 06/22/22 15:17 [facility] Consultations 06/22/22 18:30 ED Decision to Admit Stat 06/22/22 21:25 Consult Psychiatry Routine Hospital Course (1) Abnormal movement: 37-year-old female the past medical history of migraine, bipolar disorder, anxiety,, GERD, and hypertension who presents for concern of restlessness and choreiform like movements. She was seen in the ED and given Ativan 3 mg, Benadryl 50 and became extremely sedated. Was recommended for admission for monitoring. At bedside exam Reyna awakens and follows, commands before falling back asleep. Initially during exam passive and active range of motion is without cogwheeling, rigidity, or choreiform movement. [place] through strength testing patient did develop upper and lower choreiform like movements, did not endorse any weakness or sensory change. Inconsistent with EPS. Denies any recreational drug or nonprescribed substance use. Does endorse medical marijuana use through dispensary. Psychotropics continued as noted Psychiatry consulted for possible akathisia - Seen by Dr. Hardin, appreciate input. Does not believe symptoms c/w akathisia, TD, or acute dystonic reaction. - Serotonin syndrome possible but unlikely given quick improvement, no VS changes, and no evidence of clonus on ED/medical admission exam - PDMP notable for new codeine script on 06/19/2022 that patient did not discuss which possibly could have been enough to set off very mild serotonin syndrome in setting of mirtazapine, venlafaxine, lamictal and topiramate use - Therefore, would STOP the codeine cough syrup, this is also likely the cause of her + opiates on UDS Denies SI/HI Awakes easily for me today, still reports feeling drowsy but completely oriented, movements improved (2) Anxiety: H/o Anxiety/Depression/Bipolar d/o - Follows with psychiatrist, Dr. Holland - On Effexor, Lamictal, Remeron - Also on Concerta, per psychiatry's last note although not listed on med rec (3) Headache, migraine: - Follows with [facility], Dr. Rosa - Continue Topamax, Nabumetone, Dihydroergotamine, and Rimegepant - Had a migraine balderas this AM, meds ordered, pt has been sleeping in darkened room most of the day according to RN (4) Hypertension: - Stable/controlled - Continue candesartan (auto subbed with Losartain in the hospital) and spironolactone (5) Tobacco dependence: - Counseled on importance of cessation Plan Patient is medically and hemodynamically stable for discharge home. Appreciate assistance provided by psych, would stop Concerta until movements completely stop. If not, then a reduction in Effexor could be considered but will defer this to her established psychiatrist. In addition, if movements persist, would advise f/u with neurology with whom she is established (Dr. Sheets). Total Time Total Time Spent Total Time Spent (In Minutes): <30 minutes Discharge Plan Discharge Items Patient Disposition: Home - Self-Care Reason For Visit: INVOLUNTARY MOVEMENTS Discharge Diagnosis: involuntary movements migraine headache Activity: Resume your previous activity Non-emergency contact: Primary Care Provider and Neurologist Call non-emergency contact if: you have any medication questions and your symptoms worsen Follow-up/Referrals: Gagandeep Carroll MD [Primary Care Provider] - Diet: Regular Addtl Attending Provider Instructions: You were hospitalized due to involuntary movements. Fortunately, these have seemed to improve/nearly resolve. It is not felt that these movements are anything significantly concerning. You were seen by psychiatry here, Dr. Hardin, who recommended that you STOP Concerta (your stimulant) until these movements completely resolve. If they still persist despite stopping the stimulant, then reducing Effexor may need to be considered. Ultimately, this will be left up to your psychiatrist to follow up and make that determination. You were recently prescribed cough syrup with codeine, which is what showed up on your urine toxicology screen, please stop this as it could be contributing to your movements. I would encourage you to make a follow up appointment with your neurologist, Dr. Sheets, if movements seem to persist. It is recommended that you follow up with your family doctor within 1 week of discharge. Follow up with your psychiatrist as scheduled, or sooner if needed. If you have any questions or concerns after you leave the hospital, feel free to contact the nonemergency number listed on your discharge paperwork. In the event of a medical emergency, call 911. Pending Studies at Discharge: No Stand-Alone Forms: My [facility] [employer] Systems, Smoking Cessation Medications and DC Order Prescriptions: Continued lamotrigine 150 mg tablet 150 mg PO QAM Qty: 30 2RF lamotrigine [Lamictal] 200 mg tablet 200 mg PO HS 30 Days Qty: 30 2RF mirtazapine [Remeron] 15 mg tablet 15 mg PO HS Qty: 30 2RF venlafaxine [Effexor XR] 75 mg capsule,extended release 24hr 75 mg PO QAM Qty: 30 2RF Rx Instructions: TAKE WITH VENLAFAXINE 150MG = 225MG VENLAFAXINE EVERY MORNING. venlafaxine [Effexor XR] 150 mg capsule,extended release 24hr 150 mg PO QAM Qty: 30 2RF Rx Instructions: TAKE WITH 75MG VENLAFAXINE = 225MG VENLAFAXINE EVERY MORNING. Botox 200 unit recon soln See Rx Instructions IM .COMPLEX Qty: 1 3RF Rx Instructions: 155 UNITS IM IN THE FACE AND NECK MUSCLES EVERY 12 WEEKS PER MIGRAINE PROTOCOL candesartan [Atacand] 8 mg tablet 8 mg PO QAM Qty: 30 5RF prochlorperazine maleate 10 mg tablet 10 mg PO BID PRN (Reason: Nausea) Qty: 60 5RF Rx Instructions: TAKE THIS MED WITH NABUMETONE. baclofen 20 mg tablet 20 mg PO TID Qty: 90 5RF Rx Instructions: TAKE ONE TABLET BY MOUTH THREE TIMES DAILY oxycodone 5 mg tablet 5 mg PO Q6H PRN (Reason: pain) Qty: 30 0RF Vyepti 100 mg/mL solution 300 mg IV .COMPLEX Qty: 1 3RF Rx Instructions: 300 mg intravenously EVERY THREE MONTHS-PREMEDICATE WITH 40MG IV Solu-Medrol and 50MG IV Diphenhydramine; Nurtec ODT 75 mg tablet,disintegrating 75 mg PO Q OTHER DAY Qty: 15 3RF nabumetone 500 mg tablet 500 mg PO DAILY PRN (Reason: Migraine Headache) Qty: 30 0RF Rx Instructions: TAKE 1 TABLET BY MOUTH ONCE DAILY NEEDED FOR MIGRAINE HEADACHE; TAKE WITH FOOD benzonatate 100 mg capsule 200 mg PO TID PRN (Reason: cough) 10 Days Qty: 60 0RF cyanocobalamin (vitamin B-12) 1,000 mcg capsule 1,000 mcg PO DAILY tizanidine 4 mg tablet 4 mg PO BID albuterol sulfate 90 mcg/actuation HFA aerosol inhaler 2 inh inhalation QID PRN (Reason: shortness of breath or wheezing) Qty: 8.5 2RF spironolactone 25 mg tablet 50 mg PO DAILY 30 Days Qty: 60 3RF Rx Instructions: Take with food ascorbic acid (vitamin C) [Vitamin C] 500 mg Tablet 500 mg PO QAM cholecalciferol (vitamin D3) [Vitamin D3] 125 mcg (5,000 unit) Tablet 125 mcg PO QAM Probiotic 10 billion cell Capsule 10,000 mmu cells PO QAM topiramate 25 mg tablet See Rx Instructions .ROUTE .COMPLEX Rx Instructions: TAKES 25 MG QAM, THEN 50 MG QPM. riboflavin (vitamin B2) 400 mg Tablet 400 mg PO DAILY clindamycin phosphate 1 % lotion 1 applic topical DAILY PRN (Reason: SKIN IRRITATION NEEDED) Rx Instructions: Apply to the affected areas once daily after washing. dihydroergotamine 1 mg/mL solution 1 mg subcut Q1H MDD 3mg PRN (Reason: Migraine Headache) pantoprazole 40 mg tablet,delayed release (DR/EC) 40 mg PO DAILY Discharge Orders: Discharge Order (Routine); Ordered 06/23/22 Ordered By: Mone Holder Admission Data Admit Date/Time: 06/22/22 19:18 Attending Provider: Trace Hill Admit Provider: Ananda Toro Primary Care Provider: Gagandeep Carroll Other Providers: Ananda Toro ; Mag Hardin ; Sarah Mcconnell ; Lucius Roberts Coding Level of Care Code 73840 IN/OBS DISCH 30 MIN/LESS Diagnoses Abnormal movement R25.9 Anxiety F41.9 Headache, migraine G43.909 Intractability: not intractable Migraine type: unspecified Status migrainosus presence: without status migrainosus Hypertension I10 Tobacco dependence F17.200
[2022-06-26 09:57] LABS: Codeine Urine 736 ng/mL (<50); Hydrocodone Urine NEGATIVE ng/mL (<50); Hydromor Urine NEGATIVE ng/mL (<50); Marijuana Quant, GCMS Urine 9 ng/mL (<5); Morphine Urine 85 ng/mL (<50); Norhydrocodone Conf Ur NEGATIVE ng/mL (<50); Noroxycodone Urine NEGATIVE ng/mL (<50); Oxycodone Urine NEGATIVE ng/mL (<50); Oxymorph Urine NEGATIVE ng/mL (<50)
== END 2022-06-23 16:42 | disposition home or self-care (01) ==
LOC: 3E 12:42 → ED 12:42 → SUATTDRO 19:18 → 3E 20:59

== ENCOUNTER 2024-07-29 14:06 | Observation (INO) ==
--- NOTE | 2024-07-29 15:04 | CT Scan Report ---
CTA ANGIOGRAPHY OF THE HEAD CLINICAL HISTORY: stroke like symptoms COMPARISON STUDY: MRI of the brain July 15, 2022. Head CT June 15, 2022. CTA of the head December 20. TECHNIQUE: Helical axial images of the head were obtained following uneventful intravenous administr ation of 115 cc of Optiray. Sagittal and coronal reconstructions were viewed as well as maximal inten sity projections on an independent 3-D workstation. Automated exposure control was utilized for the study. A dose lowering technique was utilized adhering to the principles of ALARA. FINDINGS: Please note that the head CT will be reported separately. No acute intracranial hemorrhage, midline shift or mass effect is present. Ventricular system is normal. Basal cisterns are patent. Th ere are no extra-axial collections. Bilateral M1, M2, A1 and A2 segments are patent. No intracranial aneurysm. The intracranial portions of the vertebral arteries and basilar arteries are somewhat dimin utive. This is due to persistence of the bilateral posterior cerebral arteries. No vessel occlu chrissy within the posterior circulation is identified. IMPRESSION: No large vessel occlusion. No intracranial aneurysm. ACT 112: Negative or not required by law. Electronically signed by: Cecil Thomas M.D. 07/29/2024 3:03 PM
--- NOTE | 2024-07-29 15:04 | CT Scan Report ---
CT head/brain wo con CLINICAL HISTORY: stroke like symptoms. TECHNIQUE: Multiple axial CT images of the head were obtained without contrast. A dose lowering tech nique was utilized adhering to the principles of ALARA. COMPARISON: 06/15/2022 FINDINGS: No intracranial hemorrhage seen. No mass effect, midline shift, or hydrocephalus. No skull fracture seen. Visualized paranasal sinuses and mastoid air cells are clear. IMPRESSION: No acute findings. ACT 112: Negative or not required by law. The above report was generated using voice recognition software. It may contain grammatical, syntax o r spelling errors. Electronically signed by: Alonzo Kim M.D. 07/29/2024 3:02 PM
--- NOTE | 2024-07-29 15:10 | CT Scan Report ---
CT angio neck with con CLINICAL HISTORY: vertigo. COMPARISON STUDY: 12/20/2021 TECHNIQUE: Following the IV administration of 150 of Optiray, CT angiogram of the neck was performed from the aortic arch to the skull base. Images are reviewed in the axial, sagittal, and coronal plane s. 3-D MIPS images are created and assessed. IV contrast was administered without complication. All m easurements were calculated based on NASCET criteria. A dose lowering technique was utilized adherin g to the principles of ALARA. CT DOSE: 1286.42 mGy.cm FINDINGS: There is motion and spray artifact. Right vertebral artery is dominant and the left vertebr al artery terminates in PICA, stable anatomic variant. No significant narrowing or occlusion seen at the vertebral arteries or the common or internal carotid arteries bilaterally. IMPRESSION: No significant arterial narrowing or occlusion seen at the neck. ACT 112: Negative or not required by law. The above report was generated using voice recognition software. It may contain grammatical, syntax o r spelling errors. Electronically signed by: Alonzo Kim M.D. 07/29/2024 3:08 PM
[2024-07-29 15:15] LABS: Hematocrit (blood only) 42.4 % (37.0-47.0); Mean Corpuscular Hemoglobin 29.3 pg (25.0-34.0); Mean Corpuscular Volume 88.7 fL (80.0-100.0); Mean Platelet Volume 8.7 fL (9.4-12.4); Platelet Count 431 K/uL (130-400); RDW Coefficient of Variation 13.7 % (11.5-14.5); RDW Standard Deviation 44.6 fL (36.4-46.3); Red Blood Count 4.78 M/uL (4.20-5.40); White Blood Count 11.35 K/ul (4.8-10.8)
--- NOTE | 2024-07-29 15:21 | XRay Report ---
XR chest 1V portable CLINICAL HISTORY: stroke alert COMPARISON STUDY: 06/15/2022 FINDINGS: Heart size and pulmonary vasculature are normal. No effusion, consolidation, or pneumothora x. IMPRESSION: No acute findings. ACT 112: Negative or not required by law. Electronically signed by: Alonzo Kim M.D. 07/29/2024 3:20 PM
[2024-07-29 15:34] LABS: Alanine Aminotransferase 19 U/L (7-52); Albumin Globulin Ratio 1.3 (0.9-2); Albumin Level 4.5 gm/dl (3.4-5.0); Alkaline Phosphatase 89 U/L (34-104); Anion Gap 6 (3-11); Aspartate Aminotransferase 16 U/L (13-39); BUN Creatinine Ratio 10.1 (10-20); Bilirubin,Total 0.4 mg/dl (0.2-1.0); Blood Urea Nitrogen 8 mg/dl (6-23); Calcium 9.5 mg/dl (8.6-10.3); Carbon Dioxide 23 mmol/L (21-32); Chloride 108 mmol/L (98-107); Globulin 3.4 gm/dl (2.5-4.0); Glucose 103 mg/dl (70-99(Fasting)); Magnesium 2.2 mg/dl (1.7-2.4); Potassium 3.7 mmol/L (3.5-5.1); Sodium 137 mmol/L (136-145); Total Protein 7.9 gm/dl (6.0-8.3)
[2024-07-29 15:50] LABS: Partial Thromboplastin Time 27 Seconds (21-31); Prothrombin Time 10.4 Seconds (9.0-12.0)
[2024-07-29 17:19] LABS: Creatine Kinase 68 U/L (26-192)
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
[2024-07-29 17:39] LABS: Appearance Urine Clear (Clear); Bilirubin Urine Negative (Negative); Blood Urine Negative (Negative); Color Urine Yellow; Glucose Urine UA Negative (Negative); Ketones Urine Negative (Negative); Leukocyte Esterase Urine Negative (Negative); Nitrite Urine Negative (Negative); Protein Urine Negative (Negative); Specific Gravity Urine 1.024 (1.000-1.030); Urobilinogen Urine Negative (Negative)
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
[2024-07-29 18:08] LABS: Amphetamines+Metham, Urine Neg (Neg); Barbiturates, Urine Neg (Neg); Benzodiazepine, Urine Neg (Neg); Cocaine, Urine Neg (Neg); Fentanyl, Urine Neg (Neg); MDMA (Ecstacy), Urine Neg (Neg); Marijuana, Urine Pos (Neg); Methadone, Urine Neg (Neg); Opiate, Urine Neg (Neg); Phencyclidine, Urine Neg (Neg)
[2024-07-29 18:23] LABS: Influenza A virus by PCR Negative (Neg); Influenza B virus by PCR Negative (Neg); RSV by PCR Negative (Neg); SARS CoV2 RNA(COVID-19) Ceph NEGATIVE (Negative)
--- NOTE | 2024-07-29 20:35 | Magnetic Resonance Report ---
Exam(s): MRI HEAD Without Contrast EXAM: MR Head Without Intravenous Contrast CLINICAL HISTORY: Reason for exam: weakness of all 4 extremities, worse on left. TECHNIQUE: Magnetic resonance images of the head/brain without intravenous contrast in multiple planes. COMPARISON: 07/15/2022 MRI brain, head CT and CTA 07/29/2024 FINDINGS: Brain: Unremarkable. No mass. No hemorrhage. No acute infarct. Ventricles: Unremarkable. No ventriculomegaly. Bones/joints: Unremarkable. No acute fracture. Sinuses: Unremarkable as visualized. No acute sinusitis. Mastoid air cells: Unremarkable as visualized. No mastoid effusion. Orbits: Unremarkable as visualized. IMPRESSION: Normal head/brain MRI. Electronically signed by: Mumtaz Crawford MD 07/29/24 20:34 PM
--- NOTE | 2024-07-29 22:05 | Magnetic Resonance Report ---
Exam(s): MRI C SPINE EXAM: MR Cervical Spine Without Intravenous Contrast CLINICAL HISTORY: Reason for exam: b/l arm weakness, left arm numbness. TECHNIQUE: Magnetic resonance images of the cervical spine without intravenous contrast in multiple planes. COMPARISON: No relevant prior studies available. FINDINGS: Vertebrae: Unremarkable. No acute fracture. Spinal cord: Unremarkable. Normal signal. Soft tissues: Unremarkable. DISCS/SPINAL CANAL/NEURAL FORAMINA: C2-C3: Unremarkable. No significant disc disease. No stenosis. C3-C4: Unremarkable. No significant disc disease. No stenosis. C4-C5: Unremarkable. No significant disc disease. No stenosis. C5-C6: Unremarkable. No significant disc disease. No stenosis. C6-C7: Unremarkable. No significant disc disease. No stenosis. C7-T1: Unremarkable. No significant disc disease. No stenosis. IMPRESSION: No acute abnormality in the cervical spine. Electronically signed by: Mumtaz Crawford MD 07/29/24 22:04 PM
[2024-07-30 07:56] VITALS: RESP 17; TEMP 97.9
--- NOTE | 2024-07-30 11:44 | Discharge Summary ---
Date of Service July 30, 2024 Admission HPI Per Admitting Provider 39yo female with history of chronic migraine headaches, multiple head injuries/concussions, PTSD, chronic leukocytosis/thrombocytosis followed by [facility], movement disorder?, HTN, and ADHD who presents from her workplace after developing acute generalized weakness after eating Cookie Dough Bites from [employer] earlier this afternoon. Due to the weakness she presented as a Code Stroke alert and underwent tele-neuro evaluation by [facility]. Ms Pop reports that she was in her usual state of health until mid-day when she left her work and went to [employer]. She purchased the Cookie Dough Bites and went back to her office. While there she noted that the package looked like it had been opened/tampered with. When she started eating the cookie treat she noted right away it had a bad taste to it. Within minutes she developed nausea, left arm tingling, then bilateral hand tingling, generalized weakness in both arms and both legs, difficulty trying to stand, heaviness in both arms, and dizziness with attempting to stand. Sometime in the midst of this event she did develop a headache - bifrontal location with spread to the back of the head. She did not vomit. When asked if bystanders thought she looked pale she was not sure. In addition she reports left jaw pain and left posterior neck pain. Since arrival to the ER the heaviness in her legs/weakness of her legs seems better but her arms remain weak. During the visit - at least twice - she referenced her previous job working at a local [place]. She alluded to seeing disturbing things while working in the [place]. She was tearful talking about this. She voiced concerns that someone snuck an illicit drug into the cookie dough treat and that she had some sort of drug overdose from such. Her stated that at the [place] this had happened several times and that is why she is worried about an illicit drug exposure today. Ms Pop denied any acute chest pain (she alluded to chronic chest pain in the left breast from a breast mass), rash/hives, vomiting, abdominal pain, fevers, chills, recent illness, travel, or dyspnea. She did have botox injections for her migraine headaches on 07/21/24. Admission Exam Per Admitting Provider gen - obese, laying in bed comfortably, voice is tremulous/quivers, voice is weak at times; tearful eyes - PERRL HENT - TMs clear b/l, nose clear, mouth with MMM neck - no JVD, no lymph nodes, no goiter; with passive ROM her neck is stiff - paraspinal muscles are tense b/l; she resists moving the neck actively; no meningismus, however heart - RRR, s1 s2, no murmur lungs - CTA b/l abd - soft NT ND BS+; no HSM ext - no edema, pulses 2+ b/l feet psych - a/o x 3 but tearful neuro - CN 3-12 intact; DTRs 2+ b/l upper and lower extremities; strength - motor exam is highly inconsistent throughout the visit; however, I do believe that her strength in all muscle groups of the upper and lower extremities is indeed intact & symmetric; no proximal muscle weakness; mild tremor of arms noted; voice quivers/tremulous - dysphonia?; gait not tested skin - no rash Principal Diagnosis generalized weakness Discharge Exam Constitutional: well appearing, no acute distress HEENT: normocephalic, no conjunctival injection CV: clinically well perfused Respiratory: no increased work of breathing MSK: no gross deformities noted Skin: warm, dry, no rashes Neuro: alert, oriented, no FND noted Discharge Data Allergies Allergy/AdvReac Type Severity Reaction Status Date / Time galcanezumab-gnlm Allergy Mild Site Verified 06/11/24 13:37 [From Emgality Pen] reaction trazodone Allergy Unknown UNKNOWN Verified 06/11/24 13:37 estradiol AdvReac Intermediate "crazy" Verified 06/11/24 13:37 leuprolide AdvReac Intermediate Mental Verified 06/11/24 13:37 complications medroxyprogesterone AdvReac Intermediate mood Verified 06/11/24 13:37 [From Depo-Provera] changes morphine AdvReac Intermediate MAKES HER Verified 06/11/24 13:37 ANXIOUS NSAIDS (Non-Steroidal AdvReac Intermediate Migraine Verified 06/11/24 13:37 Anti-Inflamma tramadol AdvReac Intermediate GIVES HER Verified 06/11/24 13:37 [facility] Consultations 07/29/24 16:16 ED Decision to Admit Stat Ordered Studies 07/29/24 14:31 CT head/brain wo con Stat IMPRESSION: No acute findings. 07/29/24 14:35 CT angio head w con Stat IMPRESSION: No large vessel occlusion. No intracranial aneurysm. 07/29/24 14:36 CT angio neck with con Stat IMPRESSION: No significant arterial narrowing or occlusion seen at the neck 07/29/24 17:02 MR brain wo con Routine MR cervical spine wo con Routine IMPRESSION: Normal head/brain MRI. IMPRESSION: No acute abnormality in the cervical spine. Hospital Course (1) Generalized weakness: Pt is a 39yo female with history of chronic migraine headaches, multiple head injuries/concussions, PTSD, chronic leukocytosis/thrombocytosis followed by [facility], ?movement disorder, HTN, hypothyroidism, and ADHD who presents from her workplace after developing acute generalized weakness after [facility]. Due to the weakness she presented as a Code Stroke alert and underwent tele-neuro evaluation by [facility]. CT head, CTA head, and CTA neck were all negative. generalized weakness of arms/legs with paresthesias -patient acutely developed weakness of all 4 limbs after eating the Cookie Dough treat from the local gas station -she was concerned this food was poisoned with an illicit drug leading to her s ymptoms; urine drug screen positive only for THC; lab work w/o any signs of metabolic derangements - stroke work up negative - suspect psychogenic vs. vasovagal type reaction as pt doing much better today - encourage continued outpatient physical therapy acute/chronic migraine headaches, hx of multiple concussions -patient has headaches daily -continue outpatient regimen chronic leukocytosis/thrombocytosis -follows with [facility] anxiety/PTSD -no changes made to home medications abnormal movements/movement disorder -follows with [facility] Neuro Dr Sheets and [facility] Neuro as well HTN -encourage pt to monitor BP at home as BP have been mostly WNL while hospitalized -f/u with PCP neck pain/spasm -suspect related to her migraine headaches rather than cervical spine disease, meningitis, etc. -should respond to muscle relaxers, heat, etc. Although still weak, pt feels about at her baseline and that she would do better at home than hospitalized. Pt discharged to home. (2) Paresthesia of upper and lower extremities of both sides: (3) Abnormal involuntary movement: (4) History of concussion: (5) Chronic migraine: Total Time Total Time Spent Total Time Spent (In Minutes): as per attending attestation Discharge Plan Discharge Items Patient Disposition: Home - Self-Care Reason For Visit: GENERALIZED WEAKESS, MIGRAINE HEADACHE Discharge Diagnosis: generalized weakness Condition on Discharge: Fair Activity: Per Instructions section Non-emergency contact: Primary Care Provider and Neurologist Call non-emergency contact if: you have any medication questions and your symptoms worsen Follow-up/Referrals: Ana Maria Rosa MD [Primary Care Provider] - 08/04/24 4:00 pm (Hospital follow up on August 04 at 4 pm.) Diet: Regular Addtl Attending Provider Instructions: You were admitted to the hospital for weakness of your left side that began after eating cookie dough. You were evaluated with blood work and imaging which showed no signs of poisons, drugs, metabolic derangements, strokes, or tumors. Some of your blood pressures were low while hospitalized. It is recommended that you check these numbers at home and discuss with your primary care doctor about your blood pressure regimen moving forward. A discharge summary will be sent to your primary care physician to ensure continuity of care. Please bring this discharge summary with you to your next office appointment so that your provider can review it at that time. Medications: Your medication list has been reviewed and reconciled upon discharge to ensure accuracy and continuity of care. An updated list of all your medications is included with your hospital discharge paperwork. Please review this list closely and make note of any changes to your medications. - No changes were made to your medications. Follow up appointments: - Make a follow up appointment with your PCP within the next week. It is very important that you follow up with them shortly after discharge from the hospital. - Keep all of your follow up appointments as already scheduled. If you cannot make an appointment, notify your provider. CONTACT YOUR PRIMARY CARE PROVIDER if you experience any of the following: - Difficulty following your treatment plan - Difficulty taking any of your medications CALL 911 OR GO TO THE EMERGENCY DEPARTMENT if you experience any of the following: - Sudden, severe abdominal pain or nausea/vomiting - Severe chest pain or chest pain that radiates to your jaw or arm - Sudden, severe shortness of breath or difficulty breathing Pending Studies at Discharge: No Stand-Alone Forms: My [employer], Smoking Cessation Medications and DC Order Prescriptions: Continued lamotrigine 150 mg tablet 150 mg PO QAM Qty: 30 2RF lamotrigine [Lamictal] 200 mg tablet 200 mg PO HS 30 Days Qty: 30 6RF nabumetone 500 mg tablet 500 mg PO DAILY PRN (Reason: Migraine Headache) Qty: 30 0RF Hold Instructions: other NSAID Rx Instructions: TAKE 1 TABLET BY MOUTH ONCE DAILY NEEDED FOR MIGRAINE HEADACHE; TAKE WITH FOOD Vyepti 100 mg/mL solution 300 mg IV .COMPLEX Qty: 1 3RF Rx Instructions: 300 mg intravenously EVERY THREE MONTHS-PREMEDICATE WITH 40MG IV Solu-Medrol and 50MG IV Diphenhydramine; meloxicam 15 mg tablet 15 mg PO UD PRN (Reason: migraines) Qty: 20 5RF Rx Instructions: 15 mg orally x 10 days, then prn as directed Botox 200 unit recon soln See Rx Instructions IM .COMPLEX Qty: 1 3RF Rx Instructions: 155 UNITS IM IN THE FACE AND NECK MUSCLES EVERY 12 WEEKS PER MIGRAINE PRO TOCOL candesartan [Atacand] 8 mg tablet 8 mg PO QAM Qty: 30 5RF ondansetron 4 mg tablet,disintegrating 4 mg PO Q8H PRN (Reason: nausea and vomiting) Qty: 30 3RF Rx Instructions: usually takes at least daily dihydroergotamine 1 mg/mL solution 1 mg subcut UD PRN (Reason: Migraine Headache) Qty: 10 0RF Rx Instructions: 1 mg subcutaneously at onset of migraine. May repeat in 1 hour if needed. max 6mg/week PRN; Nurtec ODT 75 mg tablet,disintegrating 75 mg PO Q2D 30 Days Qty: 15 3RF (DME) syringe with needle 3 mL 25 gauge x 1" syringe See Rx Instructions .Route Qty: 100 1RF Rx Instructions: As directed venlafaxine 75 mg capsule,extended release 24hr 75 mg PO QAM Rx Instructions: Take in addition to 37.5 mg capsule to equal dosage of 112.5 mg daily venlafaxine [Effexor XR] 37.5 mg capsule,extended release 24hr 37.5 mg PO QAM Rx Instructions: Take in addition to 75 mg capsule to equal dosage of 112.5 mg daily methylphenidate HCl [Concerta] 54 mg tablet extended release 24hr 54 mg PO QAM tizanidine 4 mg tablet 4 mg PO BID PRN (Reason: as directed) pramipexole 0.375 mg tablet extended release 24 hr 0.75 mg PO HS Rx Instructions: 2 tablets at bedtime tizanidine 4 mg tablet 4 mg PO HS pramipexole 0.375 mg tablet extended release 24 hr 0.375 mg PO QAM ketorolac 60 mg/2 mL solution 60 mg IM UD PRN (Reason: pain) topiramate 100 mg capsule,extended release 24hr 100 mg PO QAM Discharge Orders: Discharge Order (Routine); Ordered 07/30/24 Ordered By: Wilda Pichardo Admission Data Admit Date/Time: 07/29/24 17:44 Attending Provider: Tremaine Ocampo Admit Provider: Josemanuel Radford Primary Care Provider: Ana Maria Rosa Other Providers: Josemanuel Radford Other Interventions: Discharge Summary Assessment (RN) Last Done: 07/30/24 12:47 Supervising Physician Co-Signing Physician Notes I personally examined the patient and verified all gibbons points of history and exam, discussed case, and agree with decision making with Dr Pichardo Feels well enough that she would like to go home. She and her both feel that her functional status is good enough that she will be okay at home. She does get a little bit tearful during interview and exam, but reiterates that she feels good enough to go home and would very much like to go home. Vitals noted, in general she is awake and alert somewhat tearful no physical distress. HEENT normocephalic atraumatic mucous membranes moist. Breathing unlabored no accessory muscle use good effort. Skin without rashes pallor or icterus. Neuro without focal deficits. Labs and diagnostics/extensive workup noted. Case discussed with admitting physician, input and signout greatly appreciated. Weaknessfortunately MRI brain and C-spine as well as extensive diagnostic workup are extremely reassuring. Safe/stable for home. I do wonder if it is a physiologic manifestation of her PTSD, discussed with patient and that this could be the case, but obviously that would be more of a clinical diagnosis and if they are skeptical that is certainly okay; did discuss that we have fortunately been able to rule out a significant amount of serious pathology and her desire to go home is safe and reasonable. Otherwise as above. Resident Activity Tracking Resident Involvement: Resident Care Provided Care Provided: Adult [facility]
[2024-07-30 12:00] VITALS: PULSE 73; O2SAT 98
[2024-07-30 12:49] VITALS: BP 88/54
--- NOTE | 2024-07-30 13:10 | Billing Data ---
Date of Service July 30, 2024 Coding Level of Care Code 35718 IN/OBS DISCH 30 MIN/LESS
--- NOTE | 2024-07-30 14:01 | Electrocardiogram Report ---
Test Reason : Blood Pressure : */* mmHG Vent. Rate : 73 BPM Atrial Rate : 73 BPM P-R Int : 150 ms QRS Dur : 92 ms QT Int : 368 ms P-R-T Axes : 51 44 46 degrees QTcB Int : 405 ms Normal sinus rhythm Normal ECG When compared with ECG of 22-Jun-2022 13:55, No significant change was found Confirmed by Roni Frank ([id number]) on 07/30/2024 2:01:17 PM Referred By: Confirmed By: Roni Frank
[2024-08-01 11:32] LABS: Marijuana Quant, GCMS Urine 23 ng/mL (<5)
== END 2024-07-30 14:17 | disposition home or self-care (01) ==
LOC: 2N 14:06 → ED 14:06 → SUATTDRO 17:44 → 2N 20:04